=== PATIENT | female | born 1955 | race Caucasian/White ===

== ENCOUNTER 2016-03-02 10:25 | Observation (INO) | payer OTHER ==
[2016-03-02 10:54] VITALS: BMI 34.6
--- NOTE | 2016-03-02 11:03 | PDOC ---
History of Present Illness - General History Source: Patient Exam Limitations: No Limitations - History of Present Illness Initial Comments: 03/02/16 14:27 Patient is a 60 year old female with a significant PMHx of Arthritis, HTN, DM, HLD, CAD s/p AICD, Anxiety, Depression, CKD who presents to the ED severe left ventricular dysfunction, vtach asthma, chronic systolic CHF, bradycardia vs VT s /p PPM/AICD presents with chest pain today. 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 These symptoms were accompanied by dizziness, weakness, headache, and shortness of breath. The patient denies any loss of consciousness. She was noted to be pale and was given water and crackers. The ambulance was called and the patient was transported to the ED. Upon examination , the patient states that she no has chest pain, shortness of breath, weakness, or dizziness, but still has a headache. Patient reports that she took all her medications today and had breakfast. She states that she usually experiences chest pain when she is feeling anxious or depressed. Vegetable Cutter: Dr. Valenzuela PSHx: Appendectomy, Cholecystectomy, Hernia repair, PPM & AICD <Sis Bah - Last Filed: 03/02/16 14:24> - General History Source: Patient Exam Limitations: No Limitations <Julia Jones - Last Filed: 03/02/16 15:00> - General Chief Complaint: Shortness of Breath Stated Complaint: ANXIETY Time Seen by Provider: 03/02/16 10:32 Past History <Sis Bah - Last Filed: 03/02/16 14:24> - Past Medical History Anemia: Yes Asthma: Yes Cancer: No Cardiac Disorders: Yes CVA: No COPD: No CHF: No Dementia: No Diabetes: Yes Dialysis: No GI Disorders: Yes (GERD) Disorders: No HTN: Yes Hypercholesterolemia: Yes Liver Disease: No Psychiatric Problems: Yes (DEPRESSION, ANXIETY.) Seizures: No Thyroid Disease: Yes (HYPO) - Surgical History Abdominal Surgery: Yes (HERNIA REPAIR) Appendectomy: Yes Cardiac Surgery: Yes (PPM/AICD) Cholecystectomy: Yes Lung Surgery: No Neurologic Surgery: No Orthopedic Surgery: No - Immunization History Immunization Up to Date: Yes - Psycho/Social/Smoking Cessation Hx Anxiety: Yes Suicidal Ideation: No Smoking Status: No Smoking History: Never smoked Years of Tobacco Use: 0 Have you smoked in the past 12 months: No Number of Cigarettes Smoked Daily: 0 Hx Alcohol Use: No Drug/Substance Use Hx: No Substance Use Type: None Hx Substance Use Treatment: No <Julia Jones - Last Filed: 03/02/16 15:00> - Past Medical History Allergies/Adverse Reactions: Allergies Allergy/AdvReac Type Severity Reaction Status Date / Time No Known Allergies Allergy Verified 03/02/16 10:54 Home Medications: Ambulatory Orders Aspirin [ASA -] 81 mg PO DAILY 09/23/13 Acetaminophen [Pain Reliever] 1,000 mg PO PRN PRN 01/14/15 Albuterol Sulfate Inhaler - [Ventolin HFA Inhaler -] 1 - 2 inh PO Q4H 01/14/15 Furosemide [Lasix -] 20 mg PO DAILY 01/14/15 Isosorbide Mononitrate 30 mg PO DAILY 01/14/15 Levothyroxine [Synthroid -] 75 mcg PO DAILY 01/14/15 Lisinopril 10 mg PO DAILY 01/14/15 Meloxicam [Mobic (Nf) -] 15 mg PO DAILY PRN 01/14/15 Montelukast Na [Singulair -] 10 mg PO HS 01/14/15 Ranitidine HCl [Zantac] 150 mg PO BID 01/14/15 Simvastatin [Zocor -] 10 mg PO HS 01/14/15 Carvedilol [Coreg] 25 mg PO BID 04/27/15 Calcium 250Mg/Vit-D 125 Units [Oscal 250 mg+D -] 2 combo PO BID 07/13/15 Glipizide [Glucotrol -] 10 mg PO BID@0700,1630 07/13/15 Insulin Detemir [Levemir Flextouch] 18 unit SQ AM 07/13/15 Citalopram Hydrobromide [Celexa -] 40 mg PO DAILY 09/29/15 Insulin Detemir [Levemir Flextouch] 15 unit SQ ACDIN 10/22/15 Acetaminophen [Tylenol] 650 mg PO Q6H #30 tablet 01/14/16 Insulin Lispro [Humalog] 0 unit SQ TID 02/14/16 Review of Systems - Review of Systems Comments:: 03/02/16 14:27 GENERAL/CONSTITUTIONAL: No: fever, chills, loss of appetite. (+)weakness HEAD, EYES, EARS, NOSE AND THROAT: No: change in vision, ear pain, discharge, sore throat, throat swelling. CARDIOVASCULAR: No: lightheadedness, palpitations, syncope (+)chest pain RESPIRATORY: No: cough, wheezing, hemoptysis, stridor. (+)shortness of breath GASTROINTESTINAL: No: nausea, vomiting, abdominal cramping, diarrhea, rectal bleeding, constipation. GENITOURINARY: No: dysuria, hematuria, frequency, urgency, flank pain. MUSCULOSKELETAL: No: back pain, neck pain, joint pain, muscle swelling or pain SKIN AND BREASTS: No: lesions, pallor, rash or easy bruising. NEUROLOGIC: No: vertigo, paresthesias, weakness (+)Headache ENDOCRINE: No: unexplained weight gain or loss HEMATOLOGIC/LYMPHATIC: No: anemia, easy bleeding, swelling nodes PSYCH: (+)anxiety, depression <Sis Bah - Last Filed: 03/02/16 14:24> *Physical Exam - Vital Signs Last Vital Signs Temp Pulse Resp BP Pulse Ox 97.6 F 57 L 16 111/67 98 03/02/16 10:30 03/02/16 12:27 03/02/16 12:27 03/02/16 12:27 03/02/16 12:27 - Physical Exam Comments: 03/02/16 14:31 <Sis Bah - Last Filed: 03/02/16 14:24> - Vital Signs Last Vital Signs Temp Pulse Resp BP Pulse Ox 97.6 F 61 16 91/49 100 03/02/16 10:30 03/02/16 10:30 03/02/16 10:30 03/02/16 10:30 03/02/16 10:30 <Julia Jones - Last Filed: 03/02/16 15:00> Heart Score/ECG Review #1 ECG reviewed & interpreted by me at: 14:59 03/02/16 14:59 LBBB rate of 61 <Julia Jones - Last Filed: 03/02/16 15:00> ED Treatment Course - LABORATORY CBC & Chemistry Diagram: 03/02/16 11:10 03/02/16 11:10 - ADDITIONAL ORDERS Additional order review: Laboratory Results 03/02/16 03/02/16 03/02/16 11:19 11:10 11:10 INR PTT (Actin FS) Sodium 143 Potassium 5.1 Chloride 111 H Carbon Dioxide 26 Anion Gap 6 L BUN 34 H D Creatinine 1.8 H Creat Clearance w eGFR 28.80 Random Glucose 185 H D Lactic Acid 0.967 Calcium 8.4 L Total Bilirubin 0.3 D AST 23 D ALT 27 Alkaline Phosphatase 90 Creatine Kinase 169 D CK-MB (CK-2) 3.081 Troponin I < 0.02 Total Protein 6.9 Albumin 3.7 Total Amylase 51 Lipase 162 Urine Color Urine Appearance Urine pH Ur Specific [place] Urine Protein Urine Glucose (UA) Urine Ketones Urine Blood Urine Nitrite Urine Bilirubin Urine Urobilinogen Ur Leukocyte Esterase Urine RBC Urine WBC Ur Epithelial Cells Urine Mucus Blood Type Antibody Screen 03/02/16 03/02/16 03/02/16 11:10 11:00 10:32 INR 1.02 PTT (Actin FS) 32.9 Sodium Potassium Chloride Carbon Dioxide Anion Gap BUN Creatinine Creat Clearance w eGFR Random Glucose Lactic Acid Calcium Total Bilirubin AST ALT Alkaline Phosphatase Creatine Kinase CK-MB (CK-2) Troponin I Total Protein Albumin Total Amylase Lipase Urine Color Yellow Urine Appearance Slcloudy Urine pH 6.0 Ur Specific [place] 1.016 Urine Protein 2+ H Urine Glucose (UA) Negative Urine Ketones Negative Urine Blood Negative Urine Nitrite Negative Urine Bilirubin Negative Urine Urobilinogen Negative Ur Leukocyte Esterase Trace H Urine RBC None Urine WBC 6 Ur Epithelial Cells Rare Urine Mucus Rare Blood Type O POSITIVE Antibody Screen Negative 03/02/16 11:10 RBC 3.64 MCV 96.2 H MCHC 32.6 RDW 15.1 MPV 8.3 Neutrophils % 70.2 D Lymphocytes % 14.9 D Monocytes % 12.6 H Eosinophils % 1.9 Basophils % 0.4 <Sis aBh - Last Filed: 03/02/16 14:24> - LABORATORY CBC & Chemistry Diagram: 03/02/16 11:10 03/02/16 11:10 - RADIOLOGY Radiology Studies Ordered: Category Date Time Status CHEST X-RAY PORTABLE* [RAD] Stat Radiology 03/02/16 10:49 Ordered <Julia Jones - Last Filed: 03/02/16 15:00> Medical Decision Making - Medical Decision Making 03/02/16 11:03 A portion of this note was documented by scribe services under my direction. I have reviewed the details of the note, within reason, and agree with the documentation with the following case summary and management plan written by me. Nursing documentation reviewed and incorporated into medical decision making 03/02/16 13:17 This is a 60 yo F with a history of Anemia, Asthma, NICM, IDDM, GERD, HTN, HLD, hypothyroidism who presents to the ER with a complaint of left sided chest pain which is present when she has "anxiety". Pt states that when she was in the social security office today, she felt dizzy and weak and developed chest pain No shortness of breath No cough No fever No recent travel No Ill contacts On examination Left upper arm swollen (pt states when she moves this arm, she has pain, she did fall 1 month ago) RRR Lungs clear No lower extremity edema Will do labs Will do CXR will eval LUE with duplex and x ray Will contact Dr Valenzuela Will contact [facility] 03/02/16 13:25 Laboratory Tests 03/02/16 03/02/16 03/02/16 11:00 11:10 11:10 WBC 5.3 Hgb 11.4 Hct 35.0 Plt Count 200 Neutrophils % 70.2 D Lymphocytes % 14.9 D BUN 34 H D Creatinine 1.8 H Creatine Kinase 169 D CK-MB (CK-2) 3.081 Troponin I < 0.02 Urine Ketones Negative Urine Blood Negative Ur Leukocyte Esterase Trace H Urine RBC None Urine WBC 6 03/02/16 13:26 Case reviewed with CLOCK MECHANIC Cora Will place on observation on Tele <Julia Jones - Last Filed: 03/02/16 15:00> *DC/Admit/Observation/Transfer <Sis Bah - Last Filed: 03/02/16 14:24> - Discharge Dispostion Admit: Yes <Julia Jones - Last Filed: 03/02/16 15:00> Diagnosis at time of Disposition: Chest pain Qualifiers: Chest pain type: unspecified Qualified Code(s): R07.9 - Chest pain, unspecified - Discharge Dispostion Condition at time of disposition: Stable - Referrals
[2016-03-02 11:31] LABS: BASOPHIL 0.4 % (0-2.0); EOSINOPHIL 1.9 % (0-4.5); MCH 31.3 pg (25.7-33.7); MCHC 32.6 g/dl (32.0-36.0); MEAN CELL VOLUME 96.2 fl (80-96); MEAN PLT VOLUME 8.3 fl (7.5-11.1); NEUTROPHILS 70.2 % (42.8-82.8); PLATELET COUNT 200 K/MM3 (134-434); RDW 15.1 % (11.6-15.6); WHITE BLOOD COUNT 5.3 K/mm3 (4.0-10.0)
[2016-03-02 11:32] LABS: URINE APPEARANCE SLCLOUDY; URINE BILIRUBIN NEGATIVE (NEGATIVE); URINE BLOOD NEGATIVE (NEGATIVE); URINE COLOR YELLOW; URINE GLUCOSE (UA) NEGATIVE (NEGATIVE); URINE KETONE NEGATIVE (NEGATIVE); URINE NITRITE NEGATIVE (NEGATIVE); URINE UROBILINOGEN NEGATIVE E.U./dl (0.2-1.0)
[2016-03-02 11:45] LABS: AMYLASE 51 U/L (25-115)
[2016-03-02 11:50] LABS: URINE LEUK ESTERASE TRACE (NEGATIVE); URINE PROTEIN 2+ (NEGATIVE)
[2016-03-02 11:50] LABS: ALBUMIN 3.7 g/dl (3.4-5.0); ANION GAP 6 (8-16); BILIRUBIN,TOTAL 0.3 mg/dL (0.2-1.0); CALCIUM 8.4 mg/dL (8.5-10.1); CO2 26 mmol/L (21-32); CREATININE 1.8 mg/dL (0.55-1.02); GLUCOSE,RANDOM 185 mg/dL (74-106); SGPT/ALT 27 U/L (12-78); TOT PROT 6.9 g/dl (6.4-8.2)
[2016-03-02 11:51] LABS: URINE MUCUS RARE; URINE WBC 6 /hpf (3-5)
[2016-03-02 11:53] LABS: ALK PHOS 90 U/L (45-117); TROPONIN I < 0.02 ng/ml (0.00-0.05)
[2016-03-02 11:55] LABS: SGOT/AST 23 U/L (15-37)
[2016-03-02 12:10] LABS: INR 1.02 (0.82-1.09); PROTHROMBIN TIME (PATIENT) 11.2 SEC (9.98-11.88)
[2016-03-02 12:13] LABS: ACTIVATED PTT 32.9 SECONDS (26.9-34.4)
--- NOTE | 2016-03-02 13:31 | HP ---
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 She was in a social security office earlier today, when she became depressed, anxious, diaphoretic, dizzy and pale. She also complained of h/a. She has had these symptoms before during panic attacks. She initially reported chest pain but later denied it. She denies any shocks from ICD that she could feel. She reports pain In L shoulder ever since she fell on it 1 mo ago. She states that recently her beta renu dose was increased. She was in this ED 1 mo ago due to anxiety associated symptoms. Her last TTE was 11/12/14 and showed moderately reduced EF, mod MR and mild/mod TR. She denies LOC, sob, cough, palpitations, n/v, and pain , diarrhea, constipation, dysuria, frequency or urgency. ER course was notable for: (1)labs (2)cxr, LUE US and XR (3)EKG Recent Travel: denies PAST MEDICAL HISTORY: as above PAST SURGICAL HISTORY: ICD, appendectomy, cholecystectomy, hernia, glaucoma, tubal ligation. Social History: lives at home Smoking: denies Alcohol:denies Drugs: denies Family History: Mother CAD Allergies No Known Allergies Allergy (Verified 03/02/16 10:54) HOME MEDICATIONS: Medication Instructions Recorded Aspirin [ASA -] 81 mg PO DAILY 09/23/13 Acetaminophen [Pain Reliever] 1,000 mg PO PRN PRN 01/14/15 Albuterol Sulfate Inhaler - 1 - 2 inh PO Q4H 01/14/15 [Ventolin HFA Inhaler -] Furosemide [Lasix -] 20 mg PO DAILY 01/14/15 Isosorbide Mononitrate 30 mg PO DAILY 01/14/15 Levothyroxine [Synthroid -] 75 mcg PO DAILY 01/14/15 Lisinopril 10 mg PO DAILY 01/14/15 Meloxicam [Mobic (Nf) -] 15 mg PO DAILY PRN 01/14/15 Montelukast Na [Singulair -] 10 mg PO HS 01/14/15 Ranitidine HCl [Zantac] 150 mg PO BID 01/14/15 Simvastatin [Zocor -] 10 mg PO HS 01/14/15 Carvedilol [Coreg] 12.5 mg PO BID 04/27/15 Calcium 250Mg/Vit-D 125 Units 2 combo PO BID 07/13/15 [Oscal 250 mg+D -] Glipizide [Glucotrol -] 10 mg PO BID@0700,1630 07/13/15 Insulin Detemir [Levemir Flextouch] 18 unit SQ AM 07/13/15 Albuterol Sulfate Inhaler - 2 inh IH Q6H #1 inh 09/29/15 [Ventolin HFA Inhaler -] Citalopram Hydrobromide [Celexa -] 40 mg PO DAILY 09/29/15 Insulin Detemir [Levemir Flextouch] 15 unit SQ ACDIN 10/22/15 Acetaminophen [Tylenol] 650 mg PO Q6H #30 tablet 01/14/16 Insulin Lispro [Humalog] 0 unit SQ TID 02/14/16 REVIEW OF SYSTEMS CONSTITUTIONAL: Absent: fever, chills, malaise, loss of appetite, weight change HEENT: Absent: rhinorrhea, nasal congestion, throat pain CARDIOVASCULAR: Absent: chest pain, syncope, palpitations, irregular heart rate, peripheral edema RESPIRATORY: Absent: cough, shortness of breath, dyspnea with exertion, orthopnea, wheezing GASTROINTESTINAL: Absent: abdominal pain, abdominal distension, nausea, vomiting, diarrhea, constipation GENITOURINARY: Absent: dysuria, frequency, urgency, hematuria MUSCULOSKELETAL: Absent: back pain, neck pain SKIN: Absent: rash, itching, pallor HEMATOLOGIC/IMMUNOLOGIC: Absent: easy bleeding, easy bruising, frequent infections ENDOCRINE: Absent: heat intolerance, cold intolerance NEUROLOGIC: Absent: focal weakness or paresthesias, seizure, mental status changes PSYCHIATRIC: Absent: suicidal or homicidal ideation, hallucinations. PHYSICAL EXAMINATION Vital Signs - 24 hr 03/02/16 03/02/16 03/02/16 10:30 11:34 12:27 Temperature 97.6 F Pulse Rate 61 Pulse Rate [ 60 57 L Left Radial] Respiratory 16 16 16 Rate Blood Pressure 91/49 Blood Pressure 90/46 111/67 [Right Arm] O2 Sat by Pulse 100 100 98 Oximetry (%) GENERAL: Awake, alert, and fully oriented, in no acute distress. HEAD: Normal with no signs of trauma. EYES: Pupils equal, round and reactive to light, extraocular movements intact, sclera anicteric, conjunctiva clear. EARS, NOSE, THROAT: Moist mucous membranes. NECK: supple without lymphadenopathy, JVD, or masses. LUNGS: Breath sounds equal, clear to auscultation bilaterally. HEART: Regular rate and rhythm, normal S1 and S2 ABDOMEN: Soft, nontender, not distended, normoactive bowel sounds MUSCULOSKELETAL: L shoulder pain, ROM mildly limited by pain. No CVA tenderness. UPPER EXTREMITIES: 2+ pulses, warm, well-perfused. No cyanosis. No peripheral edema. LOWER EXTREMITIES: 2+ pulses, warm, well-perfused. No calf tenderness. No peripheral edema. NEUROLOGICAL: Cranial nerves II-XII grossly intact. Normal speech. PSYCHIATRIC: Cooperative. Good eye contact. Appropriate mood and affect. SKIN: Warm, dry Laboratory Results - last 24 hr 03/02/16 03/02/16 03/02/16 10:32 11:00 11:10 WBC 5.3 RBC 3.64 Hgb 11.4 Hct 35.0 MCV 96.2 H MCHC 32.6 RDW 15.1 Plt Count 200 MPV 8.3 Neutrophils % 70.2 D Lymphocytes % 14.9 D Monocytes % 12.6 H Eosinophils % 1.9 Basophils % 0.4 INR PTT (Actin FS) Sodium Potassium Chloride Carbon Dioxide Anion Gap BUN Creatinine Creat Clearance w eGFR Random Glucose Lactic Acid Calcium Total Bilirubin AST ALT Alkaline Phosphatase Creatine Kinase CK-MB (CK-2) Troponin I Total Protein Albumin Total Amylase Lipase Urine Color Yellow Urine Appearance Slcloudy Urine pH 6.0 Ur Specific [place] 1.016 Urine Protein 2+ H Urine Glucose (UA) Negative Urine Ketones Negative Urine Blood Negative Urine Nitrite Negative Urine Bilirubin Negative Urine Urobilinogen Negative Ur Leukocyte Esterase Trace H Urine RBC None Urine WBC 6 Ur Epithelial Cells Rare Urine Mucus Rare Blood Type O POSITIVE Antibody Screen Negative 03/02/16 03/02/16 03/02/16 11:10 11:10 11:10 WBC RBC Hgb Hct MCV MCHC RDW Plt Count MPV Neutrophils % Lymphocytes % Monocytes % Eosinophils % Basophils % INR 1.02 PTT (Actin FS) 32.9 Sodium 143 Potassium 5.1 Chloride 111 H Carbon Dioxide 26 Anion Gap 6 L BUN 34 H D Creatinine 1.8 H Creat Clearance w eGFR 28.80 Random Glucose 185 H D Lactic Acid Calcium 8.4 L Total Bilirubin 0.3 D AST 23 D ALT 27 Alkaline Phosphatase 90 Creatine Kinase 169 D CK-MB (CK-2) 3.081 Troponin I < 0.02 Total Protein 6.9 Albumin 3.7 Total Amylase 51 Lipase 162 Urine Color Urine Appearance Urine pH Ur Specific [place] Urine Protein Urine Glucose (UA) Urine Ketones Urine Blood Urine Nitrite Urine Bilirubin Urine Urobilinogen Ur Leukocyte Esterase Urine RBC Urine WBC Ur Epithelial Cells Urine Mucus Blood Type Antibody Screen 03/02/16 11:19 WBC RBC Hgb Hct MCV MCHC RDW Plt Count MPV Neutrophils % Lymphocytes % Monocytes % Eosinophils % Basophils % INR PTT (Actin FS) Sodium Potassium Chloride Carbon Dioxide Anion Gap BUN Creatinine Creat Clearance w eGFR Random Glucose Lactic Acid 0.967 Calcium Total Bilirubin AST ALT Alkaline Phosphatase Creatine Kinase CK-MB (CK-2) Troponin I Total Protein Albumin Total Amylase Lipase Urine Color Urine Appearance Urine pH Ur Specific [place] Urine Protein Urine Glucose (UA) Urine Ketones Urine Blood Urine Nitrite Urine Bilirubin Urine Urobilinogen Ur Leukocyte Esterase Urine RBC Urine WBC Ur Epithelial Cells Urine Mucus Blood Type Antibody Screen ASSESSMENT/PLAN: This is a 59 yo F with PMH of anxiety, HTN, HLD, IDDM, NICM (cardiac cath 2010 [facility] with no significant CAD), Severe LV systolic dysfunction with history of VT and syncope, s/p single chamber ICD, 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 Denies chest pain. Recent increase in Beta renu. TTE 11/12/14 and showed moderately reduced EF, mod MR and mild/mod TR. She denies LOC, palpitations, n/v, and pain, diarrhea, constipation, dysuria, frequency or urgency. BP 90/46 on admission, below baseline of 130 systolic. Lightheadedness in setting of multiple cardiac comorbidities adn recent BP med dose increase (1w ago) -associated with hypotension -likely due to BP medication increase -telemetry monitoring -trop negative x1; trend -ICD interrogation -TTE -hold BP meds -asa 81 d Acute on chronic kidney injury -creat 1.8 above baseline -likely due to relative hypotension/dehydration -1L NS @75 HTN -hypotensive, hold meds L shoulder pain -f/u US and X ray Possible UTI -positive trace leuk est on UA -asymptomatic -f/u cultures -no abx indicated at this time HLD -atorvastatin 10 d IDDM -fingerstick TID AC -sliding scale -Levemir 18 u HS -Novolog 6 u TIDAC OA -tylenol PRN hypothyroidism -Synthroid 75 d Deoressuib -citalopram GERD -ranitidine Asthma -singulair -albuterol nebs FEN IVF NS @75 x 1L lytes stable DVT GI PPX: SCD's, ranitidine, diet diabetic/Na restriced diet Dispo: obs in tele Problem List - Problem (1) Depression Code(s): F32.9 - MAJOR DEPRESSIVE DISORDER, SINGLE EPISODE, UNSPECIFIED (2) Diabetic neuropathy Code(s): E11.40 - TYPE 2 DIABETES MELLITUS WITH DIABETIC NEUROPATHY, UNSP (3) Asthma Code(s): J45.909 - UNSPECIFIED ASTHMA, UNCOMPLICATED Qualifiers: Asthma severity: mild intermittent Asthma complication type: uncomplicated Qualified Code(s): J45.20 - Mild intermittent asthma, uncomplicated (4) CKD (chronic kidney disease) Code(s): N18.9 - CHRONIC KIDNEY DISEASE, UNSPECIFIED (5) COPD (chronic obstructive pulmonary disease) Code(s): J44.9 - CHRONIC OBSTRUCTIVE PULMONARY DISEASE, UNSPECIFIED Qualifiers : COPD type: unspecified COPD Qualified Code(s): J44.9 - Chronic obstructive pulmonary disease, unspecified (6) Diabetes type 2, controlled Code(s): E11.9 - TYPE 2 DIABETES MELLITUS WITHOUT COMPLICATIONS Qualifiers: Diabetes mellitus complication status: with unspecified complications Diabetes mellitus long-term insulin use: unspecified termite helper insulin use status Qualified Code(s): E11.8 - Type 2 diabetes mellitus with unspecified complications; Z79.4 - termination clerk (current) use of insulin (7) HTN (hypertension) Code(s): I10 - ESSENTIAL (PRIMARY) HYPERTENSION Qualifiers: Hypertension type: essential hypertension Qualified Code(s): I10 - Essential (primary) hypertension (8) Osteoarthritis Code(s): M19.90 - UNSPECIFIED OSTEOARTHRITIS, UNSPECIFIED SITE (9) Renal failure (ARF), acute on chronic Code(s): N17.9 - ACUTE KIDNEY FAILURE, UNSPECIFIED N18.9 - CHRONIC KIDNEY DISEASE, UNSPECIFIED (10) AICD (automatic cardioverter/defibrillator) present Code(s): Z95.810 - PRESENCE OF AUTOMATIC (IMPLANTABLE) CARDIAC DEFIBRILLATOR (11) Chronic systolic heart failure Code(s): I50.22 - CHRONIC SYSTOLIC (CONGESTIVE) HEART FAILURE (12) Depression with anxiety Code(s): F41.8 - OTHER SPECIFIED ANXIETY DISORDERS (13) History of ventricular tachycardia Code(s): Z86.79 - PERSONAL HISTORY OF OTHER DISEASES OF THE CIRCULATORY SYSTEM (14) Hyperlipidemia Code(s): E78.5 - HYPERLIPIDEMIA, UNSPECIFIED Qualifiers: Hyperlipidemia type: unspecified hyperlipidemia (15) Hypothyroidism Code(s): E03.9 - HYPOTHYROIDISM, UNSPECIFIED Qualifiers: Hypothyroidism type: unspecified Qualified Code(s): E03.9 - Hypothyroidism, unspecified (16) Non-ischemic cardiomyopathy Code(s): I42.9 - CARDIOMYOPATHY, UNSPECIFIED (17) Hypotension Code(s): I95.9 - HYPOTENSION, UNSPECIFIED (18) Lightheaded Code(s): R42 - DIZZINESS AND GIDDINESS Visit type - Emergency Visit Emergency Visit: Yes ED Registration Date: 03/02/16 Care time: The patient presented to the Emergency Department on the above date and was hospitalized for further evaluation of their emergent condition. - New Patient This patient is new to me today: Yes Date on this admission: 03/02/16 - Critical Care Critical Care patient: No
--- NOTE | 2016-03-02 13:44 | PN ---
Progress Note (short form) - Note Progress Note: Cardiology Consult Dictated 60F w/ NICM, h/o VT s/p ICD, HTN, h/o endocarditis with 6 weeks of IV abx treatment presents to ER today with episode of light headedness. Found to be relatively hypotensive on initial presentation, now improved. Possible medication induced hypotension, symptomatic. REC: Tele ICD interrogation Hold BP meds for now and observe, will likely need adjustment of home BP regimen. Echo.
--- NOTE | 2016-03-02 14:18 | CONS ---
DATE OF CONSULTATION: REQUESTING PHYSICIAN: Julia Jones MD REASON FOR CONSULTATION: Hypotension, lightheadedness. 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 The patient began to feel anxious and lightheaded. She denied chest pain or shortness of breath. Denied palpitations or ICD discharges. Upon presentation to the ER, she was noted to be hypotensive with a systolic pressure of 90 and diastolic pressure of 46. After a period of observation, her blood pressure improved, and she is now asymptomatic. She is afebrile. She has chronic dyspnea on exertion, unchanged recently. No lower extremity edema. No PND. No orthopnea. Denies recent syncope. Denies recent seizures. Lula Sci ICD interrogated in ER, normal device function with no events. PAST MEDICAL HISTORY: As outlined above. ALLERGIES: None. MEDICATIONS: Zocor 10 nightly, Zantac 150 b.i.d., Singulair 10 nightly, lisinopril, Synthroid 75 mcg daily, Imdur 30 mg daily, Lasix 20 mg daily, carvedilol 12.5 b.i.d., aspirin 81 daily. This is a list of medications from her previous hospitalization. Most recent outpatient medications need to be reviewed and reconciled. She did not have a list with her today. FAMILY HISTORY: Noncontributory. SOCIAL HISTORY: Nonsmoker. No alcohol. No illicit drugs. PHYSICAL EXAMINATION: Vital Signs: Temperature 97.6, pulse 57, regular, blood pressure now 111/67, O2 saturation 98 on room air. HEENT: She is anicteric. Neck: No JVD. No bruits. Heart: S1, S2 regular. No murmurs. Chest: Clear. Abdomen: Obese, soft, nontender. Extremities: The left upper extremity was markedly more swollen than the right upper extremity. Her EKG showed normal saline with left bundle branch block. Chest x-ray: No evidence of active cardiopulmonary disease. LABORATORIES: White count 5.3, hematocrit 35, platelets 200, INR 1. Sodium 143 , potassium 5.1, BUN 34, creatinine 1.8. Remainder of the LFTs, CK, and troponin are negative. IMPRESSION: 1. Nonischemic cardiomyopathy status post implantable cardioverter- defibrillator. 2. History of pseudoseizures. 3. Lightheadedness in the setting of hypotension, possibly medication induced. 4. LUE edema PLAN: 1. Admit to telemetry for observation. 2. Check orthostatics. 3. Reconcile home blood pressure medications and hold antihypertensives until blood pressure stabilizes then begin to reintroduce agents based on history of cardiomyopathy and hypertension as blood pressure allows. 4. ICD interrogation done in ER, no events with normal device function. 5. Echocardiogram. 6. Plan for left upper extremity venous duplex as it is markedly more swollen than the right to rule out DVT. 7. Cultures have been sent, although the patient is afebrile. Fever workup to be completed. Thank you for the consultation. POOL SINGER M.D. [id number] MTDD
[2016-03-02] MEDS ORDERED: SODIUM CHLORIDE 1,000 ML IV STA ×2 (14:32→18:17)
[2016-03-02] MEDS ORDERED: ACETAMINOPHEN 500 MG TABLET (FP) PO PRN (15:15)
[2016-03-02] MEDS ORDERED: ACETAMINOPHEN 325 MG TABLET (FP) PO PRN (15:15)
[2016-03-02] MEDS ORDERED: ALBUTEROL SO4 6.7 GM HFA INHALER IH PRN (15:15)
[2016-03-02] MEDS ORDERED: PATIENT'S OWN MEDICATION (NON-FORMULARY) (Meloxicam 15 MG) PO PRN (15:15)
--- NOTE | 2016-03-02 17:40 | PN ---
Teaching Attending Note Name of Resident: Nayana Cannon ATTENDING PHYSICIAN STATEMENT I saw and evaluated the patient. I reviewed the resident's note and discussed the case with the resident. I agree with the resident's findings and plan as documented. SUBJECTIVE:c/o "panic attack" earlier today assoc with FERN[facility]NDEZ. states she is compliant with her medications, she took them today and no recent changes. while talking she stated she felt slightly short of breath assoc with dizzyness and requested oxygen. sat 99% on RA. FS checked and noted to be 51. she states she has eaten since early this morning. denies CP, fever, chills, N/V/C/D, firing of AICD OBJECTIVE: Last Vital Signs Temp Pulse Resp BP Pulse Ox 98.3 F 63 14 99/48 100 03/02/16 16:14 03/02/16 16:14 03/02/16 16:14 03/02/16 16:14 03/02/16 16:14 General NAD CV S1 S2 bradycardic no chest wall tenderness Lungs CTA B/L no wheezing/rales/rhonchi ASSESSMENT AND PLAN: 60yo F with significant PMH including AICD for VT presented to the ER and was admitted for further evaluation of their emergent condition 1. Lightheadedness- tele observation for continuous cardiac monitoring. possible due to hypotension. HP here in the 90's. baseline is higher. recently coreg was increased. will hold all BP meds at this time and re-evaluate. cont to monitor BP closely. check Echo, PPM interrogation to r/o arrhythmia. cardiac markers Q6H x2. cardio consulted. 2. Hypoglycemia- liekly due to not eating since this morning. juice and cookies given. will repeat sugars. will half tonights insulin dose. 2. L shoulder pain- duplex and XR negative for dvt, dislocation or fracture. pain control 3. Acute on CKD- possible due to hypoperfusion vs dehydration. will give gentle IVF. avoid nephrotoxic agents 4. DVT ppx- eam
[2016-03-02] MEDS: INSULIN (NOVOLOG) ASPART 100 UNITS/ML 10ML VIAL SQ SCH (18:04)
[2016-03-02] MEDS: INSULIN SLIDING SCALE (NOVOLOG) 1 VIAL SQ SCH (18:04)
[2016-03-02] MEDS: RANITIDINE HCL 150 MG TABLET (FP) PO SCH (21:39)
[2016-03-02] MEDS: CALCIUM 250MG/VIT-D 125 UNITS 1 COMBO TABLET PO SCH (21:39)
[2016-03-02] MEDS ORDERED: MONTELUKAST NA 10 MG TABLET PO SCH (22:00)
[2016-03-02] MEDS ORDERED: INSULIN DETEMIR 100 UNITS/ML MDV SQ SCH ×2 (22:00)
[2016-03-02] MEDS ORDERED: ATORVASTATIN CA 10 MG TABLET (FP) PO SCH (22:00)
[2016-03-03] MEDS: INSULIN (NOVOLOG) ASPART 100 UNITS/ML 10ML VIAL SQ SCH ×2 (06:34→11:42)
[2016-03-03] MEDS: INSULIN SLIDING SCALE (NOVOLOG) 1 VIAL SQ SCH ×2 (06:34→11:41)
[2016-03-03] MEDS ORDERED: LEVOTHYROXINE NA 75 MCG TABLET (FP) PO SCH (07:00)
[2016-03-03] MEDS: CALCIUM 250MG/VIT-D 125 UNITS 1 COMBO TABLET PO SCH (09:20)
[2016-03-03] MEDS: RANITIDINE HCL 150 MG TABLET (FP) PO SCH (09:20)
[2016-03-03] MEDS ORDERED: ASPIRIN 81 MG CHEWABLE TABLETS PO SCH (10:00)
[2016-03-03] MEDS ORDERED: CITALOPRAM HYDROBROMIDE 20 MG TABLET (FP) PO SCH (10:00)
[2016-03-03 11:01] VITALS: BP 135/70; PULSE 70; TEMP 98
--- NOTE | 2016-03-03 12:20 | PN ---
[id number] Illness: Patient is a 60 year old female with a significant PMHx of Arthritis, HTN, DM, HLD, CAD s/p AICD, Anxiety, Depression, CKD who presents to the ED severe left ventricular dysfunction, vtach asthma, chronic systolic CHF, bradycardia vs VT s /p PPM/AICD presents with chest pain today. 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 These symptoms were accompanied by dizziness, weakness, headache, and shortness of breath. The patient denies any loss of consciousness. She was noted to be pale and was given water and crackers. The ambulance was called and the patient was transported to the ED. Upon examination , the patient states that she no has chest pain, shortness of breath, weakness, or dizziness, but still has a headache. Patient reports that she took all her medications today and had breakfast. She states that she usually experiences chest pain when she is feeling anxious or depressed. Commissions Manager: Dr. Valenzuela - Current Medication List Current Medications: Active Medications Acetaminophen (Tylenol -) 650 mg PO Q4H PRN Last Admin: 03/03/16 11:38 Dose: 650 mg Albuterol Sulfate (Ventolin Hfa Inhaler -) 2 puff IH Q4H PRN Aspirin (Asa -) 81 mg PO DAILY [facility] Last Admin: 03/03/16 09:20 Dose: 81 mg Atorvastatin Calcium (Lipitor -) 10 mg PO HS [facility] Last Admin: 03/02/16 21:39 Dose: 10 mg Calcium/Vitamin D (Oscal 250 Mg+D -) 2 tab PO BID [facility] Last Admin: 03/03/16 09:20 Dose: 2 tab Citalopram Hydrobromide (Celexa -) 40 mg PO DAILY [facility] Last Admin: 03/03/16 09:20 Dose: 40 mg Insulin Aspart (Novolog Vial Sliding Scale -) 1 vial SQ TIDAC [facility] PRN Reason: Protocol Last Admin: 03/03/16 11:41 Dose: Not Given Insulin Aspart (Novolog Vial) 6 units SQ TIDAC [facility] PRN Reason: Protocol Last Admin: 03/03/16 11:42 Dose: Not Given Insulin Detemir (Levemir Vial) 9 units SQ [facility] Last Admin: 03/02/16 21:38 Dose: 9 units Levothyroxine Sodium (Synthroid -) 75 mcg PO DAILY@0700 [facility] Last Admin: 03/03/16 06:35 Dose: 75 mcg Montelukast Sodium (Singulair -) 10 mg PO HS [facility] Last Admin: 03/02/16 21:39 Dose: 10 mg Ranitidine HCl (Zantac -) 150 mg PO BID [facility] Last Admin: 03/03/16 09:20 Dose: 150 mg - Objective Vital Signs: Vital Signs Temperature 98 F 03/03/16 10:00 Pulse Rate 70 03/03/16 10:00 Respiratory Rate 18 03/03/16 10:00 Blood Pressure 135/70 03/03/16 10:00 O2 Sat by Pulse Oximetry (%) 97 03/03/16 09:00 Constitutional: Yes: Anxious Eyes: Yes: WNL HENT: Yes: WNL Neck: Yes: WNL Cardiovascular: Yes: S1, S2 (split) Respiratory: Yes: WNL Gastrointestinal: Yes: Soft ...Rectal Exam: Yes: Deferred Genitourinary: No: Anuria Breast(s): Yes: WNL Musculoskeletal: Yes: Muscle Weakness Extremities: Yes: Cool Edema: No Peripheral Pulses WNL: Yes Integumentary: Yes: WNL Neurological: Yes: Alert Psychiatric: Yes: Other (depression) Labs: CBC, BMP 03/03/16 05:35 INR, PTT INR 1.02 (0.82-1.09) 03/02/16 11:10 Problem List - Problems (1) Depression Code(s): F32.9 - MAJOR DEPRESSIVE DISORDER, SINGLE EPISODE, UNSPECIFIED (2) Diabetic neuropathy Code(s): E11.40 - TYPE 2 DIABETES MELLITUS WITH DIABETIC NEUROPATHY, UNSP (3) Lightheaded Code(s): R42 - DIZZINESS AND GIDDINESS (4) Asthma Code(s): J45.909 - UNSPECIFIED ASTHMA, UNCOMPLICATED Qualifiers: Asthma severity: mild intermittent Asthma complication type: uncomplicated Qualified Code(s): J45.20 - Mild intermittent asthma, uncomplicated (5) CKD (chronic kidney disease) Code(s): N18.9 - CHRONIC KIDNEY DISEASE, UNSPECIFIED (6) COPD (chronic obstructive pulmonary disease) Code(s): J44.9 - CHRONIC OBSTRUCTIVE PULMONARY DISEASE, UNSPECIFIED Qualifiers : COPD type: unspecified COPD Qualified Code(s): J44.9 - Chronic obstructive pulmonary disease, unspecified (7) Chronic back pain Code(s): M54.9 - DORSALGIA, UNSPECIFIED G89.29 - OTHER CHRONIC PAIN (8) Diabetes type 2, controlled Code(s): E11.9 - TYPE 2 DIABETES MELLITUS WITHOUT COMPLICATIONS Qualifiers: Diabetes mellitus complication status: with unspecified complications Diabetes mellitus jail insulin use: unspecified director long term care insulin use status Qualified Code(s): E11.8 - Type 2 diabetes mellitus with unspecified complications; Z79.4 - director long term care (current) use of insulin (9) HTN (hypertension) Code(s): I10 - ESSENTIAL (PRIMARY) HYPERTENSION Qualifiers: Hypertension type: essential hypertension Qualified Code(s): I10 - Essential (primary) hypertension (10) Chronic systolic heart failure Assessment/Plan: ICD interrogation: no NSVT since 12/2015. Severely reduced LVEF. Restart carvedilol 25 mg bid, Imdur 30 mg daily. On lisinopril 20 mg daily at home; will restart at 5 mg/d (initially hyperkalemic and renal insufficient: f/u BUN/Cr and electrolytes). On furosemide 20 mg daily at home. Code(s): I50.22 - CHRONIC SYSTOLIC (CONGESTIVE) HEART FAILURE (11) History of ventricular tachycardia Code(s): Z86.79 - PERSONAL HISTORY OF OTHER DISEASES OF THE CIRCULATORY SYSTEM (12) Hyperlipidemia Code(s): E78.5 - HYPERLIPIDEMIA, UNSPECIFIED Qualifiers: Hyperlipidemia type: unspecified hyperlipidemia (13) Hypothyroidism Code(s): E03.9 - HYPOTHYROIDISM, UNSPECIFIED Qualifiers: Hypothyroidism type: unspecified Qualified Code(s): E03.9 - Hypothyroidism, unspecified (14) Non-ischemic cardiomyopathy Code(s): I42.9 - CARDIOMYOPATHY, UNSPECIFIED
[2016-03-03] MEDS ORDERED: CARVEDILOL 25 MG TABLET (FP) PO SCH (12:45)
[2016-03-03 12:50] LABS: CALCIUM 8.6 mg/dL (8.5-10.1); CREATININE 1.4 mg/dL (0.55-1.02); MAGNESIUM 2.2 mg/dL (1.8-2.4); PHOSPHOROUS 3.8 mg/dL (2.5-4.9)
[2016-03-03] MEDS ORDERED: LISINOPRIL 5 MG TABLET (FP) PO SCH (13:00)
[2016-03-03] MEDS ORDERED: ISOSORBIDE MONONITRATE 30 MG TAB.SR.24H (FP) PO SCH (13:00)
[2016-03-03] MEDS ORDERED: LISINOPRIL 20 MG TABLET (FP) PO SCH (13:00)
--- NOTE | 2016-03-03 13:27 | DS ---
Physical Exam: SUBJECTIVE: Patient seen and examined. no repeated episodes of dizzyness or CP, denies CP, SOB,fever, chills, palpitaitons OBJECTIVE: Vital Signs Period Temp Pulse Resp BP Sys/Ayers Pulse Ox Last 24 Hr 97.8 F-98.4 F 55-70 14-18 99-137/44-80 96-100 PHYSICAL EXAM GENERAL: The patient is awake, alert, and fully oriented, in no acute distress. HEAD: Normal with no signs of trauma. EYES: PERRL, extraocular movements intact, sclera anicteric, conjunctiva clear. ENT: Ears normal, nares patent, oropharynx clear without exudates, moist mucous membranes. NECK: Trachea midline, full range of motion, supple. LUNGS: Breath sounds equal, clear to auscultation bilaterally, no wheezes, no crackles, no accessory muscle use. HEART: Regular rate and rhythm, S1, S2 without murmur, rub or gallop. ABDOMEN: Soft, nontender, nondistended, normoactive bowel sounds, no guarding, no rebound, no hepatosplenomegaly, no masses. EXTREMITIES: 2+ pulses, warm, well-perfused, no edema. NEUROLOGICAL: Cranial nerves II through XII grossly intact. Normal speech, gait not observed. PSYCH: Normal mood, normal affect. SKIN: Warm, dry, normal turgor, no rashes or lesions noted. LABS Laboratory Results - last 24 hr 03/02/16 03/02/16 03/02/16 15:45 17:44 18:43 Sodium Potassium Chloride Carbon Dioxide Anion Gap BUN Creatinine POC Glucometer 51 181 Random Glucose Calcium Phosphorus Magnesium Troponin I < 0.02 03/02/16 03/02/16 03/03/16 21:36 22:55 05:35 Sodium 138 Potassium 4.8 Chloride 111 H Carbon Dioxide 22 Anion Gap 5 L BUN 26 H D Creatinine 1.4 H D POC Glucometer 173 119 Random Glucose 87 D Calcium 8.6 Phosphorus 3.8 Magnesium 2.2 Troponin I 03/03/16 03/03/16 06:28 11:40 Sodium Potassium Chloride Carbon Dioxide Anion Gap BUN Creatinine POC Glucometer 85 123 Random Glucose Calcium Phosphorus Magnesium Troponin I HOSPITAL COURSE: Date of Admission:03/02/16 Date of Discharge: 03/03/16 ADmitting diagnosis: Symptomatic Hypotension Pre hospital course 59 yo F with PMH of anxiety, HTN, HLD, IDDM, NICM (cardiac cath 2010 [facility] with no significant CAD), Severe LV systolic dysfunction with history of VT and syncope, s/p single chamber ICD, 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 She was in a social security office earlier today, when she became depressed, anxious, diaphoretic, dizzy and pale. She also complained of h/a. She has had these symptoms before during panic attacks. She initially reported chest pain but later denied it. She denies any shocks from ICD that she could feel. She reports pain In L shoulder ever since she fell on it 1 mo ago. She states that recently her beta renu dose was increased. She was in this ED 1 mo ago due to anxiety associated symptoms. Her last TTE was 11/12/14 and showed moderately reduced EF, mod MR and mild/mod TR. She denies LOC, sob, cough, palpitations, n/v, and pain, diarrhea, constipation, dysuria, frequency or urgency. Subsequent hospital course: Tele observation. no events noted on tele monitor other than bradycardia. Cardiac markers neg x2. ICD interrogation with no events. Echo done showing severely reduced and global hypokinesis. BP monitored off home medications and improved. evaluated by cardio and lasix was d/c and lisiniopril was reduced to 5mg. (kept on coreg and imdur). noted to aslo have hypoglycemia. reduced night time levemir to 9 units and sugars remained controlled, not requiring coverage. d/c home on BP medication change as well as only on levemir 8 units at bedtime with sliding scale coverage. instructed to keep sugar log to bring to PMD appointment on saturday for further adjustment to medications. verbalized understanding and agreed with plan. Minutes to complete discharge: 35 Discharge Summary Reason For Visit: CHEST PAIN Current Active Problems Chest pain (Acute) Depression (Acute) Diabetic neuropathy (Acute) Hypoglycemia (Acute) Hypotension (Acute) Hypothermia (Acute) Lightheaded (Acute) Sciatica (Acute) - Instructions Diet, Activity, Other Instructions: Your home medications have changed, refer to medication list for these changes. Reduce your evening dose of insulin to 8 units. Conitnue your sliding scale coverage. check your sugars three times a day and record it. bring this log with you to your primary care doctor. Please see him on saturday or saturday the latest. Follow up with cardiology in 1 week, you may need further changes to your medications. If you develop dizzyness, or signs of high or low sugar return to the ER. Referrals: Ramy Valenzuela MD [Staff Physician] - Dana Colindres MD [Primary Care Provider] - Disposition: HOME - Home Medications Comprehensive Discharge Medication List: Ambulatory Orders Aspirin [ASA -] 81 mg PO DAILY 09/23/13 Acetaminophen [Pain Reliever] 1,000 mg PO PRN PRN 01/14/15 Albuterol Sulfate Inhaler - [Ventolin HFA Inhaler -] 1 - 2 inh PO Q4H 01/14/15 Isosorbide Mononitrate 30 mg PO DAILY 01/14/15 Levothyroxine [Synthroid -] 75 mcg PO DAILY 01/14/15 Meloxicam [Mobic (Nf) -] 15 mg PO DAILY PRN 01/14/15 Montelukast Na [Singulair -] 10 mg PO HS 01/14/15 Ranitidine HCl [Zantac] 150 mg PO BID 01/14/15 Simvastatin [Zocor -] 10 mg PO HS 01/14/15 Carvedilol [Coreg] 25 mg PO BID 04/27/15 Calcium 250Mg/Vit-D 125 Units [Oscal 250 mg+D -] 2 combo PO BID 07/13/15 Citalopram Hydrobromide [Celexa -] 40 mg PO DAILY 09/29/15 Acetaminophen [Tylenol] 650 mg PO Q6H #30 tablet 01/14/16 Insulin Lispro [Humalog] 0 unit SQ TID 02/14/16 Insulin (Levemir) [Levemir Flexpen -] 8 units SQ HS #1 pen 03/03/16 Lisinopril [Prinivil] 5 mg PO DAILY #30 tablet 03/03/16 This patient is new to me today: No Emergency Visit: Yes ED Registration Date: 03/02/16 Care time: The patient presented to the Emergency Department on the above date and was hospitalized for further evaluation of their emergent condition. Critical Care patient: No - Discharge Referral Referred to [facility] Med P.C.: No
--- NOTE | 2016-03-03 16:32 | EKG ---
Test Reason : Blood Pressure : / mmHG Vent. Rate : 061 BPM Atrial Rate : 061 BPM P-R Int : 150 ms QRS Dur : 136 ms QT Int : 502 ms P-R-T Axes : 066 -07 170 degrees QTc Int : 505 ms NORMAL SINUS RHYTHM WITH SINUS ARRHYTHMIA LEFT BUNDLE BRANCH BLOCK ABNORMAL ECG WHEN COMPARED WITH ECG OF 14-FEB-2016 15:56, NO SIGNIFICANT CHANGE WAS FOUND Confirmed by FRANCIA NATHAN MD ([id number]) on 03/03/2016 4:32:35 PM Referred By: Confirmed By:FRANCIA NATHAN MD
== END 2016-03-03 14:39 | disposition home or self-care (01) ==
LOC: JER 10:25 → JERBED 14:24 → J4W 17:35
PROVIDERS: ADMIT Internal Medicine; ATTEND Internal Medicine
DX: R07.89 Other chest pain (principal); E78.5 Hyperlipidemia, unspecified; I42.8 Other cardiomyopathies; E11.40 Type 2 diabetes mellitus with diabetic neuropathy, unspecified; J45.20 Mild intermittent asthma, uncomplicated; E03.9 Hypothyroidism, unspecified; I47.2 Ventricular tachycardia; I12.9 Hypertensive chronic kidney disease with stage 1 through stage 4 chronic kidney disease, or unspecified chronic kidney disease; N18.9 Chronic kidney disease, unspecified; N17.9 Acute kidney failure, unspecified; M25.519 Pain in unspecified shoulder; F41.8 Other specified anxiety disorders; I25.10 Atherosclerotic heart disease of native coronary artery without angina pectoris; Z95.810 Presence of automatic (implantable) cardiac defibrillator; Z79.4 Long term (current) use of insulin
CPT/HCPCS: 36415; 71010-TC; 73030-TC-LT; 80048; 80053; 81003; 81015; 82150; 82550; 82553; 83605; 83690; 83735; 84100; 84484; 85025; 85610; 85730; 86850; 86900; 86901; 87040; 87086; 93005; 93010; 93306-TC; 93971; 99285-25; G0378

== ENCOUNTER 2017-01-16 13:19 | Emergency (ER) | payer OTHER ==
[2017-01-16 14:09] VITALS: BP 157/72; PULSE 60; TEMP 98.4; BMI 32.4
--- NOTE | 2017-01-16 14:39 | PDOC ---
History of Present Illness - General Chief Complaint: Pain, Acute Stated Complaint: SHOULDER PAIN Time Seen by Provider: 01/16/17 14:08 - History of Present Illness Initial Comments: 01/16/17 14:37 61 yo F with multiple comorbidities including h/o HTN, HLD, NIDDM, COPD,CAD s/p AICD, CKD, and left sided sciatica who presents from [facility] with left shoulder pain. Complains of stable, dull, achy, left shoulder pain for past two weeks associated with intermittent left distal extremity numbness/ tingling. Exacerbated with movement and pressure. Pain not alleviated with Percocet . Denies recent trauma to, heavy lifting, repetitive strain, or weakness of involved extremity. Denies N/V, fevers/chills, chest pain, SOB, lightheadedness. No h/o CT, stent placement, CABG. Denies h/o TIA/CVA, or neurology f/u. Past History - Past Medical History Allergies/Adverse Reactions: Allergies Allergy/AdvReac Type Severity Reaction Status Date / Time No Known Allergies Allergy Verified 08/18/16 01:38 Home Medications: Ambulatory Orders Albuterol Sulfate Inhaler - [Ventolin Hfa Inhaler -] 1 - 2 inh PO Q4H 01/16/17 Albuterol Sulfate Inhaler - [Ventolin Hfa Inhaler -] 1 - 2 inh PO QID 01/16/17 Aspirin [ASA -] 81 mg PO DAILY 01/16/17 Calcium Carbonate/Vitamin D3 [Calcium 500 + Vit D 200 Caplet] 1 each PO BID Carvedilol 25 mg PO DAILY 01/16/17 Cholecalciferol (Vitamin D3) [Vitamin D3] 50,000 unit PO WEEKLY 01/16/17 Citalopram Hydrobromide [Celexa -] 40 mg PO DAILY 01/16/17 Fluticasone/Salmeterol [Advair 250-50 Diskus] 1 each IH BID 01/16/17 Gabapentin 300 mg PO TID 01/16/17 Glipizide 10 mg PO BID 01/16/17 Insulin (Levemir) [Levemir Vial] 11 unit SQ HS 01/16/17 Insulin Lispro [Humalog] 8 unit SQ ASDIR 01/16/17 Isosorbide Mononitrate [Imdur -] 30 mg PO DAILY 01/16/17 Levothyroxine [Synthroid -] 75 mcg PO DAILY 01/16/17 Lisinopril [Prinivil] 20 mg PO DAILY 01/16/17 Meloxicam [Mobic (Nf) -] 15 mg PO DAILY 01/16/17 Montelukast Na [Singulair -] 10 mg PO HS 01/16/17 Multivitamin [Poly-Vitamin] 1 each PO DAILY 01/16/17 Simvastatin [Zocor] 10 mg PO HS 01/16/17 Anemia: Yes Asthma: Yes Cancer: No Cardiac Disorders: Yes CVA: No COPD: No CHF: No Dementia: No Diabetes: Yes Dialysis: No GI Disorders: Yes (GERD) Disorders: No HTN: Yes Hypercholesterolemia: Yes Liver Disease: No Psychiatric Problems: Yes (DEPRESSION, ANXIETY.) Seizures: No Thyroid Disease: Yes (HYPO) - Surgical History Abdominal Surgery: Yes (HERNIA REPAIR) Appendectomy: Yes Cardiac Surgery: Yes (PPM/AICD) Cholecystectomy: Yes Lung Surgery: No Neurologic Surgery: No Orthopedic Surgery: No - Immunization History Immunization Up to Date: Yes - Suicide/Smoking/Psychosocial Hx Smoking Status: No Smoking History: Never smoked Years of Tobacco Use: 0 Have you smoked in the past 12 months: No Number of Cigarettes Smoked Daily: 0 Information on smoking cessation initiated: No Hx Alcohol Use: No Drug/Substance Use Hx: No Substance Use Type: None Hx Substance Use Treatment: No Review of Systems - Review of Systems Comments:: 01/16/17 14:39 GENERAL/CONSTITUTIONAL: No fever or chills. No weakness. HEAD, EYES, EARS, NOSE AND THROAT: No change in vision. No ear pain or discharge. No sore throat.- CARDIOVASCULAR: No chest pain or shortness of breath RESPIRATORY: No cough, wheezing, or hemoptysis. GASTROINTESTINAL: No nausea, vomiting, diarrhea or constipation. GENITOURINARY: No dysuria, frequency, or change in urination. MUSCULOSKELETAL: + Right shoulder pain. No joint swelling. No neck or back pain. SKIN: No rash NEUROLOGIC: No headache, vertigo, loss of consciousness, or change in strength/ sensation. ENDOCRINE: No increased thirst. No abnormal weight change HEMATOLOGIC/LYMPHATIC: No anemia, easy bleeding, or history of blood clots. ALLERGIC/IMMUNOLOGIC: No hives or skin allergy. *Physical Exam - Vital Signs Last Vital Signs Temp Pulse Resp BP Pulse Ox 98.4 F 60 20 157/72 97 01/16/17 14:02 01/16/17 14:02 01/16/17 14:02 01/16/17 14:02 01/16/17 14:02 - Physical Exam Comments: 01/16/17 14:38 GENERAL: Awake, alert, and fully oriented, in no acute distress HEAD: No signs of trauma, normocephalic, atraumatic EYES: PERRLA, EOMI, sclera anicteric, conjunctiva clear ENT: Hearing grossly normal, nares patent, oropharynx clear without exudates. Moist mucosa NECK: Normal ROM, supple, no JVD, or masses LUNGS: No distress, speaks full sentences, clear to auscultation bilaterally HEART: Regular rate and rhythm, normal S1 and S2, no murmurs, rubs or gallops, peripheral pulses normal and equal bilaterally. ABDOMEN: Soft, nontender, normoactive bowel sounds. No guarding, no rebound. No masses EXTREMITIES : Left shoulder tender to palpation at deltoid. Absent bony abnormalities noted. Pain with active and passive ROM. 4/5 Left shoulder abduction/extension. Normal inspection, Normal range of motion, no edema. Palpable and symmetric peripheral pulses. No clubbing or cyanosis. Left hand numbness/tingling of distal digits 1-4 and dorsal hand digits 1-3. SKIN: Warm, Dry, normal turgor, no rashes or lesions noted. Heart Score/ECG Review - History History: Slightly suspicious - Electrocardiogram EKG: Non specific repolarization disturbance - Age Age: 45-65 - Risk Factors Risk Factors Heart Score: Yes Hx Hypercholesterolemia, Yes Hx Hypertension, Yes Hx Diabetes, Yes Positive family hx of cardiac disease Based on the list above the patient has:: >/=3 risk factors or Hx atherosclerotic disease ED Treatment Course - LABORATORY CBC & Chemistry Diagram: 01/16/17 16:00 01/16/17 16:00 Medical Decision Making - Medical Decision Making 01/16/17 15:11 61 yo F with multiple comorbidities including h/o HTN, HLD, NIDDM, COPD,CAD s/p AICD, CKD, and left sided sciatica who presents from [facility] with left stable, dull, achy, right shoulder pain for past two weeks associated distal left extremity numbness/tingling. Exacerbated with movement and pressure. Pain not alleviated with Percocet. Denies recent trauma to, heavy lifting, repetitive strain, or weakness of involved extremity. Denies N/V, fevers/chills, chest pain, SOB, lightheadedness. No h/o CT, stent placement, CABG. Physical slightly limited 2/2 pain, but reveals left shoulder tender to palpation at deltoid and pain with active/passive ROM. 4/5 Left shoulder abduction/extension. Absent bony abnormalities noted. Palpable and symmetric peripheral pulses. No clubbing or cyanosis.Low suspicion for ACS/CT based on unremarkable history and physical exam. However, patient has multiple risk factors and shoulder pain has potential for anginal equivalent. Also numbness/ tingling is unlikely 2/2 CVA/TIA as the parasthesias is in median nerve distribution, and associated with no other neurological deficits. Pain most likely MSK in origin. ED Course: CBC, CMP, Cardiac Profile, L shoulder RAD 01/16/17 16:35 CXR: No acute pathology L Shoulder RAD: No fracture, dislocation, or acute pathology. Mild degenerative changes. CBC: Unremarkable. 01/16/17 17:02 EKG: AV dual paced rhythm with absent YANNICK, STD. 01/16/17 17:38 CMP: Unremarkable. Trop: Neg 01/16/17 17:40 Patient is stable and bedside and ready for discharge. Discussed findings with patient and agrees to follow up as outpatient with strict return precautions. Awaiting repeat troponin. Repeat Trop *DC/Admit/Observation/Transfer Diagnosis at time of Disposition: Left anterior shoulder pain - Discharge Dispostion Disposition: HOME Condition at time of disposition: Good Admit: No - Referrals Referrals: Dana Colindres MD [Primary Care Provider] - - Patient Instructions Printed Discharge Instructions: DI for Shoulder Pain Additional Instructions: Please return to the emergency department with any new or worsening symptoms or concerns. Please follow up with your primary care physician within one week. Please refer to Neurology for ongoing symptoms. Print Language: ROMANIAN - Post Discharge Activity - Attestations Physician Attestion: 01/16/17 16:58 I attest to the information provided in this note.
[2017-01-16] MEDS ORDERED: IBUPROFEN 600 MG TABLET (FP) PO ONE ×2 (14:52→15:42)
--- NOTE | 2017-01-16 15:41 | PDOC ---
Attending Attestation - Resident Resident Name: Bo Tolbert - ED Attending Attestation I have performed the following: I have examined & evaluated the patient, The case was reviewed & discussed with the resident, I agree w/resident's findings & plan, Exceptions are as noted - HPI HPI: 01/16/17 15:40 61 yo F with multiple comorbidities including h/o HTN, HLD, NIDDM, COPD,CAD s/p AICD, CKD, and left sided sciatica who presents from [facility] with 2 weeks of intermittent left shoulder pain and left fingertip numbness. The patient reports the pain is worse when she moves and ranges her left shoulder. She denies any trauma. She denies that the symptoms get worse with exertion. Denies any other symptoms of chest pain, shortness of breath, nausea, vomiting, diaphoresis, focal weakness. Denies fevers, chills. She reports the numbness is only of her middle 3 fingers and only of the tips. She denies that the shoulder pain radiates down her left arm. She states the numbness in her fingertips and the pain in her left arm are independent of each other. - Physicial Exam PE: 01/16/17 19:14 GENERAL: Awake, alert, and fully oriented, in no acute distress HEAD: No signs of trauma EYES: PERRLA, EOMI, sclera anicteric, conjunctiva clear ENT: Auricles normal inspection, hearing grossly normal, nares patent, oropharynx clear without exudates. Moist mucosa NECK: Normal ROM, supple, no lymphadenopathy, JVD, or masses LUNGS: Breath sounds equal, clear to auscultation bilaterally. No wheezes, and no crackles HEART: Regular rate and rhythm, normal S1 and S2, no murmurs, rubs or gallops ABDOMEN: Soft, nontender, normoactive bowel sounds. No guarding, no rebound. No masses EXTREMITIES: Normal range of motion, no edema. No clubbing or cyanosis. No cords, erythema. L shoulder with some tenderness anteriorly to palpation. Equal 2+ peripheral pulses b/l. NEUROLOGICAL: Normal speech, cranial nerves intact, negative pronator drift, 5/ 5 strength in all 4 extremities, normal sensation to light touch in all 4 extremities, normal cerebellar exam, normal gait, normal reflexes and tone SKIN: Warm, Dry, normal turgor, no rashes or lesions noted. - Medical Decision Making 01/16/17 17:17 61-year-old female with multiple medical problems presents with left shoulder pain and left fingertip numbness. Vitals are unremarkable. Exam is unremarkable and patient is well-appearing. Patient has no numbness or decreased sensation over her fingertips. She does have tenderness when ranging and palpating the left shoulder. Although this is likely musculoskeletal pain, we will check 2 troponins given patient's known risk factors. The fact that the symptoms are not worse with exertion and are reproducible are reassuring however. 01/16/17 18:18 First trop negative. Remainder of labs within normal limits. Pt asymptomatic in the ED. Signed out to Dr. Thompson for further eval and management. Heart Score/ECG Review - History History: Slightly suspicious - Electrocardiogram EKG: Normal - Age Age: 45-65 - Risk Factors Risk Factors Heart Score: Yes Hx Hypercholesterolemia, Yes Hx Hypertension Based on the list above the patient has:: >/=3 risk factors or Hx atherosclerotic disease - Troponin Troponin: </= normal limit - Score Heart Score - Total: 3 #1 01/16/17 19:16 Twelve-lead EKG was performed and reviewed by me. AV paced, rate 60.
[2017-01-16 16:25] LABS: BASOPHIL 0.4 % (0-2.0); EOSINOPHIL 2.9 % (0-4.5); MCH 31.1 pg (25.7-33.7); MEAN CELL VOLUME 94.1 fl (80-96); MEAN PLT VOLUME 8.2 fl (7.5-11.1); NEUTROPHILS 62.6 % (42.8-82.8); PLATELET COUNT 210 K/MM3 (134-434); RDW 14.7 % (11.6-15.6); WHITE BLOOD COUNT 4.8 K/mm3 (4.0-10.0)
[2017-01-16 16:55] LABS: ALBUMIN 3.4 g/dl (3.4-5.0); ANION GAP 6 (8-16); BILIRUBIN,TOTAL 0.2 mg/dL (0.2-1.0); CALCIUM 9.5 mg/dL (8.5-10.1); CO2 30 mmol/L (21-32); CREATININE 1.5 mg/dL (0.55-1.02); GLUCOSE,RANDOM 118 mg/dL (74-106); SGOT/AST 12 U/L (15-37); SGPT/ALT 24 U/L (12-78); TOT PROT 6.8 g/dl (6.4-8.2)
[2017-01-16 16:56] LABS: ALK PHOS 104 U/L (45-117)
[2017-01-16 17:03] LABS: CPK 67 IU/L (26-192); TROPONIN I < 0.02 ng/ml (0.00-0.05)
--- NOTE | 2017-01-17 12:54 | EKG ---
Test Reason : Blood Pressure : / mmHG Vent. Rate : 060 BPM Atrial Rate : 060 BPM P-R Int : 146 ms QRS Dur : 114 ms QT Int : 494 ms P-R-T Axes : 000 -89 071 degrees QTc Int : 494 ms AV dual-paced rhythm Biventricular pacemaker detected ABNORMAL ECG WHEN COMPARED WITH ECG OF 17-AUG-2016 23:49, VENT. RATE HAS DECREASED BY 2 BPM Confirmed by YUDELKA BAUER MD ([id number]) on 01/17/2017 12:54:09 PM Referred By: Confirmed By:YUDELKA BAUER MD
== END 2017-01-16 21:09 | disposition home or self-care (01) ==
LOC: JER 13:19
DX: M25.512 Pain in left shoulder (principal); I25.10 Atherosclerotic heart disease of native coronary artery without angina pectoris; I13.10 Hypertensive heart and chronic kidney disease without heart failure, with stage 1 through stage 4 chronic kidney disease, or unspecified chronic kidney disease; N18.9 Chronic kidney disease, unspecified; Z95.810 Presence of automatic (implantable) cardiac defibrillator; E11.9 Type 2 diabetes mellitus without complications; Z79.4 Long term (current) use of insulin; Z79.84 Long term (current) use of oral hypoglycemic drugs; E03.9 Hypothyroidism, unspecified; M54.42 Lumbago with sciatica, left side
CPT/HCPCS: 36415; 71010-TC; 73030-TC-LT; 80053; 82550; 84484; 85025; 93005; 93010; 99284-25

== ENCOUNTER 2017-12-06 20:51 | Emergency (ER) | payer OTHER ==
[2017-12-06 20:56] VITALS: BP 152/65; PULSE 86; TEMP 98.6; BMI 32.4
[2017-12-06] MEDS ORDERED: ALBUTEROL SO4 2.5/IPRATROPIUM 0.5 INH SOL 3 ML VIAL.NEB. NEB ONE ×4 (21:00→22:46)
--- NOTE | 2017-12-06 21:00 | PDOC ---
Rapid Medical Evaluation Chief Complaint: Cold Symptoms Time Seen by Provider: 12/06/17 20:56 Medical Evaluation: Allergies Allergy/AdvReac Type Severity Reaction Status Date / Time No Known Allergies Allergy Verified 12/06/17 20:56 Vital Signs Temp Pulse Resp BP Pulse Ox 98.6 F 86 20 152/65 98 12/06/17 20:54 12/06/17 20:54 12/06/17 20:54 12/06/17 20:54 12/06/17 20:54 12/06/17 20:57 I have performed a brief in-person evaluation of this patient. The patient presents with a chief complaint of: non-productive cough, nasal congestion, runny nose and tactile fever Pertinent physical exam findings:mild diffused wheezing. no respiratory distress. heart: RRR I have ordered the following: CXR. Duoneb tx The patient will proceed to the ED for further evaluation. 12/06/17 20:59 Discharge Disposition - Diagnosis Cough - Referrals - Patient Instructions - Post Discharge Activity
--- NOTE | 2017-12-06 22:22 | PDOC ---
History of Present Illness - General Chief Complaint: Cold Symptoms Stated Complaint: FEVER, CONGESTION, COUGHING Time Seen by Provider: 12/06/17 20:56 History Source: Patient Exam Limitations: No Limitations - History of Present Illness Initial Comments: 12/06/17 22:18 HISTORY OF PRESENT ILLNESS: This is a 62-year-old woman past medical history of hypertension, diabetes, hyperlipidemia, pacemaker, CHF, parkinson's who presents emergency Department with 3 days of moist nonproductive cough, fevers and nasal congestion. Patient states she's been taking her temperature at home with a MAXIMUM TEMPERATURE of 100.9 orally. Patient denies any difficulty swallowing or sore throats. She denies headaches, blurry vision, chest pain, shortness of breath, abdominal pain, nausea, vomiting. No recent travel or sick contacts. PAST MEDICAL HISTORY: See HPI SURGICAL HISTORY: Denies ALLERGIES: No known drug allergies REVIEW OF SYSTEMS General/Constitutional: +fever. Denies weakness, weight change. HEENT: Denies change in vision. Denies ear pain or discharge. Denies sore throat. Cardiovascular: Denies chest pain or shortness of breath. Respiratory: Moist nonproductive cough. Denies wheezing, or hemoptysis. Gastrointestinal: Denies nausea, vomiting, diarrhea or constipation. Denies rectal bleeding. Genitourinary: Denies dysuria, frequency, or change in urination. Musculoskeletal: Denies joint or muscle swelling or pain. Denies neck or back pain. Skin and breasts: Denies rash or easy bruising. Neurologic: Denies headache, vertigo, loss of consciousness, or loss of sensation. Psychiatric: Denies depression or anxiety. Endocrine: Denies increased thirst. Denies abnormal weight change. Hematologic/Lymphatic: Denies anemia, easy bleeding, or history of blood clots. Allergic/Immunologic: Denies hives or skin allergy. Denies latex allergy. PHYSICAL EXAM General Appearance: Well-appearing, appropriately dressed. No apparent distress , no intoxication. HEENT: EOMI, PERRLA, normal ENT inspection, normal voice, TMs normal, pharynx normal. No conjunctival pallor. No photophobia, scleral icterus. Neck: Supple. Trachea midline. No tenderness, rigidity, carotid bruit, stridor , lymphadenopathy, or thyromegaly. Respiratory/Chest: Lungs CTAB. No shortness of breath, chest tenderness, respiratory distress, accessory muscle use. No crackles, rales, rhonchi, stridor , dullness. Scattered wheezes present. Cardiovascular: RRR. S1, S2. No JVD, murmur, bradycardia, tachycardia. Vascular Pulses: Dorsalis-Pedis (R): 2+, Dorsalis-Pedis (L): 2+ Gastrointestinal/Abdominal: Normal bowel sounds. Abdomen soft, non-distended. No tenderness or rebound tenderness. No organomegaly, pulsatile mass, guarding, hernia, hepatomegaly, splenomegaly. Lymphatic: No adenopathy, tenderness. Musculoskeletal/Extremities: Normal inspection. FROM of all extremities, normal capillary refill. Pelvis Stable. No CVA tenderness. No tenderness to extremities, pedal edema, swelling, erythema or deformity. Integumentary: Appropriate color, dry, warm. No cyanosis, erythema, jaundice or rash Neurologic: director customer II-XII intact. Fully oriented, alert. Appropriate mood/affect. Motor strength 5/5. No appreciable EOM palsy, facial droop or sensory deficit. Past History - Past Medical History Allergies/Adverse Reactions: Allergies Allergy/AdvReac Type Severity Reaction Status Date / Time No Known Allergies Allergy Verified 12/06/17 20:56 Home Medications: Ambulatory Orders Albuterol Sulfate Inhaler - [Ventolin Hfa Inhaler -] 1 - 2 inh PO Q4H 01/16/17 Albuterol Sulfate Inhaler - [Ventolin Hfa Inhaler -] 1 - 2 inh PO QID 01/16/17 Aspirin [ASA -] 81 mg PO DAILY 01/16/17 Calcium Carbonate/Vitamin D3 [Calcium 500 + Vit D 200 Caplet] 1 each PO BID Carvedilol 25 mg PO DAILY 01/16/17 Cholecalciferol (Vitamin D3) [Vitamin D3] 50,000 unit PO WEEKLY 01/16/17 Citalopram Hydrobromide [Celexa -] 40 mg PO DAILY 01/16/17 Fluticasone/Salmeterol [Advair 250-50 Diskus] 1 each IH BID 01/16/17 Gabapentin 300 mg PO TID 01/16/17 Glipizide 10 mg PO BID 01/16/17 Insulin (Levemir) [Levemir Vial] 11 unit SQ HS 01/16/17 Insulin Lispro [Humalog] 8 unit SQ ASDIR 01/16/17 Isosorbide Mononitrate [Imdur -] 30 mg PO DAILY 01/16/17 Levothyroxine [Synthroid -] 75 mcg PO DAILY 01/16/17 Lisinopril [Prinivil] 20 mg PO DAILY 01/16/17 Meloxicam [Mobic (Nf) -] 15 mg PO DAILY 01/16/17 Montelukast Na [Singulair -] 10 mg PO HS 01/16/17 Multivitamin [Poly-Vitamin] 1 each PO DAILY 01/16/17 Simvastatin [Zocor] 10 mg PO HS 01/16/17 Azithromycin [Zithromax 250mg Tablets -] 250 mg PO UTDICT #6 tab 12/06/17 Anemia: Yes Asthma: Yes Cancer: No Cardiac Disorders: Yes CVA: No COPD: No CHF: No Dementia: No Diabetes: Yes Dialysis: No GI Disorders: Yes (GERD) Disorders: No HTN: Yes Hypercholesterolemia: Yes Liver Disease: No Psychiatric Problems: Yes (DEPRESSION, ANXIETY.) Seizures: No Thyroid Disease: Yes (HYPO) - Surgical History Abdominal Surgery: Yes (HERNIA REPAIR) Appendectomy: Yes Cardiac Surgery: Yes (PPM/AICD) Cholecystectomy: Yes Lung Surgery: No Neurologic Surgery: No Orthopedic Surgery: No - Immunization History Immunization Up to Date: Yes - Suicide/Smoking/Psychosocial Hx Smoking Status: No Smoking History: Never smoked Years of Tobacco Use: 0 Have you smoked in the past 12 months: No Number of Cigarettes Smoked Daily: 0 Hx Alcohol Use: No Drug/Substance Use Hx: No Substance Use Type: None Hx Substance Use Treatment: No *Physical Exam - Vital Signs Last Vital Signs Temp Pulse Resp BP Pulse Ox 98.6 F 86 20 152/65 98 12/06/17 20:54 12/06/17 20:54 12/06/17 20:54 12/06/17 20:54 12/06/17 20:54 ED Treatment Course - Medications Given in the ED: ED Medications Discontinued Medications Generic Name Dose Route Start Last Admin Trade Name Freq PRN Reason Stop Dose Admin Albuterol/Ipratropium 1 amp 12/06/17 21:00 12/06/17 21:48 Duoneb - NEB 12/06/17 21:01 1 amp ONCE ONE Administration Medical Decision Making - Medical Decision Making 12/06/17 22:20 A/P: 62-year-old woman with multiple medical problems with 3 days of moist cough, fevers and nasal congestion. Lungs with scattered wheezes Speaking full sentences Nebulizer treatments, chest x-ray Chest x-ray as read by me: cardiac silhouette is slightly enlarged. Dual- chamber pacemaker present. Surgical clips noted. No focal consolidations or infiltrates noted. No significant change from study performed 01/16/17. 12/06/17 22:51 Repeat lung exam reveals end expiratory wheezes. As her no signs of heart failure this is likely all pulmonary wheezing which has improved after nebulizer treatments. I'll discharge the patient home with prescription for azithromycin to treat her bronchitis. *DC/Admit/Observation/Transfer Diagnosis at time of Disposition: Bronchitis - Discharge Dispostion Disposition: HOME Condition at time of disposition: Stable Decision to Admit order: No - Prescriptions Prescriptions: Azithromycin [Zithromax 250mg Tablets -] 250 mg PO UTDICT #6 tab - Referrals Referrals: Dana Colindres MD [Primary Care Provider] - - Patient Instructions Additional Instructions: Take azithromycin 500 mg on the first day followed by 250 mg every day until all medication is complete. Take Tylenol as needed for pain or fever. Follow enamel buffer's instructions for appropriate dosage. Return to the emergency department for any worsening cough, shortness of breath , wheezing, chest pain, leg swelling or any other concerns. - Post Discharge Activity
[2017-12-06] MEDS: ALBUTEROL SO4 2.5/IPRATROPIUM 0.5 INH SOL 3 ML VIAL.NEB. NEB SCH ×3 (22:51→23:00)
== END 2017-12-06 23:02 | disposition home or self-care (01) ==
LOC: JERFT 20:51
PROC: 3E0F7GC Introduction of Other Therapeutic Substance into Respiratory Tract, Via Natural or Artificial Opening (ICD-10-PCS; principal; 2017-12-06)
DX: J40 Bronchitis, not specified as acute or chronic (principal); I25.10 Atherosclerotic heart disease of native coronary artery without angina pectoris; I11.0 Hypertensive heart disease with heart failure; Z95.810 Presence of automatic (implantable) cardiac defibrillator; E11.9 Type 2 diabetes mellitus without complications; Z79.4 Long term (current) use of insulin; Z79.84 Long term (current) use of oral hypoglycemic drugs; E78.00 Pure hypercholesterolemia, unspecified; D64.9 Anemia, unspecified; J45.909 Unspecified asthma, uncomplicated; F41.8 Other specified anxiety disorders; F32.9 Major depressive disorder, single episode, unspecified
CPT/HCPCS: 71046-TC-FY; 94640; 99281-25; J7620

== ENCOUNTER 2018-04-03 16:39 | Emergency (ER) | payer OTHER ==
[2018-04-03 16:50] VITALS: BP 169/89; PULSE 86; TEMP 98.2; BMI 32.4
[2018-04-03] MEDS ORDERED: KETOROLAC TROMETHAMINE 30 MG/1 ML VIAL IM ONE (18:25)
--- NOTE | 2018-04-03 18:27 | PDOC ---
History of Present Illness - General Chief Complaint: Pain Stated Complaint: solen face Time Seen by Provider: 04/03/18 18:07 History Source: Patient Exam Limitations: No Limitations - History of Present Illness Initial Comments: 04/03/18 18:27 CHIEF COMPLAINT: Leg pain HISTORY OF PRESENT ILLNESS: This is a 62-year-old female with a history of asthma, insulin-dependent diabetes, CHF/PPM, hypercholesterolemia, and depression who presents complaining of 5 days of right thigh pain. She denies fall or any other injury. She denies low back pain. She has not been taking anything for relief of the pain. She has limited weightbearing but is able to ambulate with a limp in the emergency department. Vital signs on arrival are notable for BP 168/89. REVIEW OF SYSTEMS: GENERAL/CONSTITUTIONAL: No fever or chills. No weakness. No weight change. HEAD, EYES, EARS, NOSE AND THROAT: No change in vision. No ear pain or discharge. No sore throat. CARDIOVASCULAR: No chest pain or palpitations. RESPIRATORY: No cough, wheezing, or shortness of breath. GASTROINTESTINAL: No nausea, vomiting, diarrhea or constipation. GENITOURINARY: No dysuria, frequency, or change in urination. MUSCULOSKELETAL: See HPI. SKIN: No rash or easy bruising. NEUROLOGIC: No headache, vertigo, loss of consciousness, or loss of sensation. PSYCHIATRIC: History of anxiety/depression. ENDOCRINE: No increased thirst. No abnormal weight change. HEMATOLOGIC/LYMPHATIC: No anemia, easy bleeding, or history of blood clots. ALLERGIC/IMMUNOLOGIC: No hives or skin allergy. No latex allergy. PHYSICAL EXAM: GENERAL: The patient is awake, alert, and fully oriented, in no acute distress. HEAD: Normal with no signs of trauma. ENT: Pupils equal, round and reactive to light, extraocular movements intact, sclera anicteric, conjunctiva clear. Neck supple. LUNGS: Clear to auscultation bilaterally. Normal excursion. No respiratory distress or use of accessory muscles. CV: RRR, S1/S2, no MRG. Cap refill < 2 sec. ABDOMEN: Soft, non-distended, non-tender. EXTREMITIES: Trace LE edema bilat, normal per patient. Tenderness to lateral aspect of right thigh; no bruising or edema. No hip tenderness. NEUROLOGICAL: Normal speech, normal gait. CN II-XII grossly intact. No midline vertebral tenderness. PSYCH: Normal mood, normal affect. SKIN: Warm, dry, normal turgor, no rashes or lesions noted. Past History - Past Medical History Allergies/Adverse Reactions: Allergies Allergy/AdvReac Type Severity Reaction Status Date / Time No Known Allergies Allergy Verified 04/03/18 16:46 Home Medications: Ambulatory Orders Albuterol Sulfate Inhaler - [Ventolin Hfa Inhaler -] 1 - 2 inh PO Q4H 01/16/17 Albuterol Sulfate Inhaler - [Ventolin Hfa Inhaler -] 1 - 2 inh PO QID 01/16/17 Aspirin [ASA -] 81 mg PO DAILY 01/16/17 Calcium Carbonate/Vitamin D3 [Calcium 500 + Vit D 200 Caplet] 1 each PO BID Carvedilol 25 mg PO DAILY 01/16/17 Cholecalciferol (Vitamin D3) [Vitamin D3] 50,000 unit PO WEEKLY 01/16/17 Citalopram Hydrobromide [Celexa -] 40 mg PO DAILY 01/16/17 Fluticasone/Salmeterol [Advair 250-50 Diskus] 1 each IH BID 01/16/17 Gabapentin 300 mg PO TID 01/16/17 Glipizide 10 mg PO BID 01/16/17 Insulin (Levemir) [Levemir Vial] 11 unit SQ HS 01/16/17 Insulin Lispro [Humalog] 8 unit SQ ASDIR 01/16/17 Isosorbide Mononitrate [Imdur -] 30 mg PO DAILY 01/16/17 Levothyroxine [Synthroid -] 75 mcg PO DAILY 01/16/17 Lisinopril [Prinivil] 20 mg PO DAILY 01/16/17 Meloxicam [Mobic (Nf) -] 15 mg PO DAILY 01/16/17 Montelukast Na [Singulair -] 10 mg PO HS 01/16/17 Multivitamin [Poly-Vitamin] 1 each PO DAILY 01/16/17 Simvastatin [Zocor] 10 mg PO HS 01/16/17 Azithromycin [Zithromax 250mg Tablets -] 250 mg PO UTDICT #6 tab 12/06/17 Anemia: Yes Asthma: Yes Cancer: No Cardiac Disorders: Yes CVA: No COPD: No CHF: No Dementia: No Diabetes: Yes Dialysis: No GI Disorders: Yes (GERD) Disorders: No HTN: Yes Hypercholesterolemia: Yes Liver Disease: No Psychiatric Problems: Yes (DEPRESSION, ANXIETY.) Seizures: No Thyroid Disease: Yes (HYPO) - Surgical History Abdominal Surgery: Yes (HERNIA REPAIR) Appendectomy: Yes Cardiac Surgery: Yes (PPM/AICD) Cholecystectomy: Yes Lung Surgery: No Neurologic Surgery: No Orthopedic Surgery: No - Immunization History Immunization Up to Date: Yes - Suicide/Smoking/Psychosocial Hx Smoking Status: No Smoking History: Never smoked Years of Tobacco Use: 0 Have you smoked in the past 12 months: No Number of Cigarettes Smoked Daily: 0 Hx Alcohol Use: No Drug/Substance Use Hx: No Substance Use Type: None Hx Substance Use Treatment: No *Physical Exam - Vital Signs Last Vital Signs Temp Pulse Resp BP Pulse Ox 98.2 F 86 16 169/89 949 H 04/03/18 16:46 04/03/18 16:46 04/03/18 16:46 04/03/18 16:46 04/03/18 16:46 Moderate Sedation - Procedure Monitoring Vital Signs: Procedure Monitoring Vital Signs Temperature 98.2 F 04/03/18 16:46 Pulse Rate 86 04/03/18 16:46 Respiratory Rate 16 04/03/18 16:46 Blood Pressure 169/89 04/03/18 16:46 O2 Sat by Pulse Oximetry (%) 949 H 04/03/18 16:46 ED Treatment Course - RADIOLOGY Radiology Studies Ordered: Category Date Time Status FEMUR-RIGHT [RAD] Stat Radiology 04/03/18 18:25 Ordered HIP & PELVIS-RIGHT [RAD] Stat Radiology 04/03/18 18:25 Ordered Medical Decision Making - Medical Decision Making 04/03/18 18:30 A/P: 62-year-old female with right thigh pain. -Xray right femur/hip/pelvis -Toradol 30mg IM x 1 for pain -Re-evaluate 04/03/18 20:17 X-ray demonstrates no acute fracture. As patient is feeling better after Toradol and is able to bear weight in the emergency department, do not suspect an occult hip fracture. Explained to patient and that patient may need orthopedic consultation and follow-up imaging if not improving. Will discharge with short course of ibuprofen and orthopedics referral. Patient has been in agreement with the plan. *DC/Admit/Observation/Transfer Diagnosis at time of Disposition: Thigh pain Qualifiers: Laterality: right Qualified Code(s): M79.651 - Pain in right thigh - Discharge Dispostion Disposition: HOME Condition at time of disposition: Stable - Referrals Referrals: Dana Colindres MD [Primary Care Provider] - Ramiro Mcfarlane DO [Staff Physician] - 1 week (Orthopedics if not improving) - Patient Instructions Printed Discharge Instructions: DI for Leg Pain Additional Instructions: -Rest and apply ice to the painful area -Take ibuprofen 400mg (2 tablets) every 6 hours with food for no longer than one week -Follow up with orthopedics (referral enclosed) if not improving -Return here for worsening pain/inability to bear weight or any other concerning symptoms - Post Discharge Activity
[2018-04-03] MEDS ORDERED: KETOROLAC TROMETHAMINE 30 MG/1 ML VIAL ONE (18:28)
== END 2018-04-03 20:27 | disposition home or self-care (01) ==
LOC: JERFT 16:39
PROC: 3E0233Z Introduction of Anti-inflammatory into Muscle, Percutaneous Approach (ICD-10-PCS; principal; 2018-04-03)
DX: M79.651 Pain in right thigh (principal); I25.10 Atherosclerotic heart disease of native coronary artery without angina pectoris; I11.0 Hypertensive heart disease with heart failure; Z95.810 Presence of automatic (implantable) cardiac defibrillator; D64.9 Anemia, unspecified; J45.909 Unspecified asthma, uncomplicated; E11.9 Type 2 diabetes mellitus without complications; Z79.4 Long term (current) use of insulin; Z79.84 Long term (current) use of oral hypoglycemic drugs; E03.9 Hypothyroidism, unspecified; K21.9 Gastro-esophageal reflux disease without esophagitis
CPT/HCPCS: 73523-TC-FY; 73552-TC-RT-FY; 99281-25

== ENCOUNTER 2018-05-22 15:06 | Emergency (ER) | payer OTHER ==
--- NOTE | 2018-05-22 16:23 | PDOC ---
Attending Attestation - HPI HPI: 05/22/18 16:50 The patient is a 62 year old female, with a significant PMH of asthma, insulin dependent diabetes, CHF/PPM, hypercholesterolemia, and depression who presents to the emergency department with 6 days of elevated blood sugar. The patient reports she noted blood sugar readings in the 500s since last Saturday. The patient states she saw her PCP on 05/21/18 who increased her Humolog from 8 to 10 units per day and Levamir from 18 to 24 units. The patient reports she received a call earlier today from her PCP advising her to come to the emergency department secondary to elevated potassium from blood work taken 05/21/18. The patient states she otherwise feels well and denies any complaints. Of note, the patient had a steroid injection in her cervical spine last Saturday by Dr Edge. The patient denies chest pain, shortness of breath, headache and dizziness. Denies fever, chills, nausea, vomit, diarrhea and constipation. Denies dysuria, frequency, urgency and hematuria. Allergies: NKA PCP: Dr Hays Documentation prepared by Clay Menezes, acting as medical case manager for Rhea Valles DO. <Clay Menezes - Last Filed: 05/22/18 16:50> - Physicial Exam PE: GENERAL: Awake, alert, and fully oriented, in no acute distress HEAD: No signs of trauma EYES: PERRLA, EOMI, sclera anicteric, conjunctiva clear ENT: Auricles normal inspection, hearing grossly normal, nares patent, oropharynx clear without exudates. Moist mucosa NECK: Normal ROM, supple, no lymphadenopathy, JVD, or masses LUNGS: Breath sounds equal, clear to auscultation bilaterally. No wheezes, and no crackles HEART: Regular rate and rhythm, normal S1 and S2, no murmurs, rubs or gallops ABDOMEN: +Obese with prominence of insulin injection cheng. Soft, nontender, normoactive bowel sounds. No guarding, no rebound. No masses EXTREMITIES: +Trace edema bilaterally at ankles. Normal range of motion. No clubbing or cyanosis. No cords, erythema, or tenderness NEUROLOGICAL: Cranial nerves II through XII grossly intact. Normal speech, normal gait SKIN: Warm, Dry, normal turgor, no rashes or lesions noted. 05/22/18 17:17 - Medical Decision Making Documentation prepared by ONDINA Garland, acting as medical case manager for Rhea Valles DO. 05/22/18 17:17 <Sivan Matamoros - Last Filed: 05/22/18 17:17> - Resident Resident Name: Favian Hernandez - ED Attending Attestation I have performed the following: I have examined & evaluated the patient, The case was reviewed & discussed with the resident, I agree w/resident's findings & plan, Exceptions are as noted - Critical Care Time Total Critical Care Time: 35 Critical Care Statement: The care of this patient involved high complexity decision making to prevent further life threatening deterioration of the patient 's condition and/or to evaluate & treat vital organ system(s) failure or risk of failure. - Medical Decision Making 05/22/18 16:23 I, Dr. Rhea Valles DO, attest that this document has been prepared under my direction and personally reviewed by me in its entirety. I further attest, that it accurately reflects all work, treatment, procedures and medical decision -making performed by me. 05/22/18 18:09 a/p: 62yo female sent from her PMD for eval of abnl labs -has had elevated gluc as an outpt -as outpt also had an elevated K -pt denies all other complaints -no sore throat, no rhinorrhea, no cp/sob/cough/palpitations -no abd pain, no n/v/d -no dysuria -pt denies núñez, lightheaded or dizziness -will send labs, pt with mild oral dry mm -will add ivf hydration -no acute ekg changes -will monitor and reassess 05/22/18 18:14 potassium 6.2 -will treat potassium -will continue to hydrate and will monitor and reassess 05/22/18 21:20 repeat labs show improved potassium and improved glucose pt stable for dc to home <Rhea Valles - Last Filed: 05/22/18 21:20> Heart Score/ECG Review - ECG Intrepretation Comment:: 05/22/18 18:15 a sensed and v paced, no acute changes <Rhea Valles - Last Filed: 05/22/18 21:20>
--- NOTE | 2018-05-22 16:42 | PDOC ---
History of Present Illness - General Chief Complaint: Revisit, Lab Variance Stated Complaint: Blood Sugar Problem Time Seen by Provider: 05/22/18 16:20 History Source: Patient Exam Limitations: No Limitations - History of Present Illness Initial Comments: 05/22/18 16:35 62 yo female pmh pf IDDM (current home dose of humolog 10 units 3 times a day and levamir 24 units with meals) asthma, CHF, permanent pace maker, HLD and depression presents to the ED with 6 days of elevated blood sugars. Pt states since last Saturday she has noticed elevated blood sugars in the 500s, saw her PCP 05/21/2018 for concerns and was told to increase humolog from 8-10 units 3 times a day and levamir from 18-24 units with meals. Pt received a call from PCP today, told to go to the ER for elevated potassium from blood work taken 04/2018. Of note, patient had steroid injection in her cervical spine last Saturday by Dr. Edge and was told by PCP this may be the cause of her elevated blood sugars. Pt has no new medical complaints such as CP, palpitations, SOB, abdominal pain, back pain, changes in bowel or bladder habits, F/C/N/V. Past History - Past Medical History Allergies/Adverse Reactions: Allergies Allergy/AdvReac Type Severity Reaction Status Date / Time No Known Allergies Allergy Verified 04/03/18 16:46 Home Medications: Ambulatory Orders Albuterol Sulfate Inhaler - [Ventolin Hfa Inhaler -] 1 - 2 inh PO Q4H 01/16/17 Albuterol Sulfate Inhaler - [Ventolin Hfa Inhaler -] 1 - 2 inh PO QID 01/16/17 Aspirin [ASA -] 81 mg PO DAILY 01/16/17 Calcium Carbonate/Vitamin D3 [Calcium 500 + Vit D 200 Caplet] 1 each PO BID Carvedilol 25 mg PO DAILY 01/16/17 Cholecalciferol (Vitamin D3) [Vitamin D3] 50,000 unit PO WEEKLY 01/16/17 Citalopram Hydrobromide [Celexa -] 40 mg PO DAILY 01/16/17 Fluticasone/Salmeterol [Advair 250-50 Diskus] 1 each IH BID 01/16/17 Gabapentin 300 mg PO TID 01/16/17 Glipizide 10 mg PO BID 01/16/17 Insulin (Levemir) [Levemir Vial] 11 unit SQ HS 01/16/17 Insulin Lispro [Humalog] 8 unit SQ ASDIR 01/16/17 Isosorbide Mononitrate [Imdur -] 30 mg PO DAILY 01/16/17 Levothyroxine [Synthroid -] 75 mcg PO DAILY 01/16/17 Lisinopril [Prinivil] 20 mg PO DAILY 01/16/17 Meloxicam [Mobic (Nf) -] 15 mg PO DAILY 01/16/17 Montelukast Na [Singulair -] 10 mg PO HS 01/16/17 Multivitamin [Poly-Vitamin] 1 each PO DAILY 01/16/17 Simvastatin [Zocor] 10 mg PO HS 01/16/17 Azithromycin [Zithromax 250mg Tablets -] 250 mg PO UTDICT #6 tab 12/06/17 Anemia: Yes Asthma: Yes Cancer: No Cardiac Disorders: Yes CVA: No COPD: No CHF: No Dementia: No Diabetes: Yes Dialysis: No GI Disorders: Yes (GERD) Disorders: No HTN: Yes Hypercholesterolemia: Yes Liver Disease: No Psychiatric Problems: Yes (DEPRESSION, ANXIETY.) Seizures: No Thyroid Disease: Yes (HYPO) - Surgical History Abdominal Surgery: Yes (HERNIA REPAIR) Appendectomy: Yes Cardiac Surgery: Yes (PPM/AICD) Cholecystectomy: Yes Lung Surgery: No Neurologic Surgery: No Orthopedic Surgery: No - Immunization History Immunization Up to Date: Yes - Suicide/Smoking/Psychosocial Hx Smoking Status: No Smoking History: Never smoked Years of Tobacco Use: 0 Have you smoked in the past 12 months: No Number of Cigarettes Smoked Daily: 0 Hx Alcohol Use: No Drug/Substance Use Hx: No Substance Use Type: None Hx Substance Use Treatment: No Review of Systems - Review of Systems Constitutional: No: Chills, Fever HEENTM: No: Blurred Vision, Double Vision Respiratory: No: Shortness of Breath Cardiac (ROS): No: Chest Pain, Edema ABD/GI: No: Constipated, Diarrhea, Nausea, Vomiting, Abdominal cramping : No: Burning, Dysuria, Discharge, Frequency, Flank Pain, Hematuria, Incontinence Musculoskeletal: No: Back Pain Neurological: No: Headache, Numbness, Paresthesia, Weakness *Physical Exam - Physical Exam General Appearance: Yes: Nourished, Appropriately Dressed. No: Apparent Distress HEENT: positive: EOMI Neck: positive: Supple. negative: Tender, Carotid bruit, Tender lateral, Tender midline Respiratory/Chest: positive: Lungs Clear, Normal Breath Sounds. negative: Respiratory Distress, Accessory Muscle Use, Crackles, Rales, Rhonchi, Stridor, Wheezing Cardiovascular: positive: Regular Rhythm, Regular Rate, S1, S2. negative: Edema , JVD, Murmur Vascular Pulses: Dorsalis-Pedis (R): 3+, Doralis-Pedis (L): 3+ Gastrointestinal/Abdominal: positive: Flat, Soft. negative: Pulsatile Mass, Protuberent, Distended, Guarding, Rebound, Tenderness Extremity: positive: Normal Capillary Refill, Normal Inspection, Normal Range of Motion, Pedal Edema. negative: Calf Tenderness, Erythema Integumentary: positive: Normal Color, Dry, Warm. 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 Pt has no medical complaints today and feels at baseline vitals WNL NAD, non toxic appearing, AOX3 EKG shows paced rhythm, no st changes DDX INLT: recent steroid injection leading to elevated BS, infection, change in diet, pancreatic burnout leading to increase insulin requirement CBC wnl CMP shws elevated K and BS VBG WNL Acetone negative trops neg cxr negative for acute changes or path Pt appears dry, will give fluids, insulin, albuterol and kayexcalate, reassess with CMP after treatment CMP shows improvement in BS and K, pt continues to be asymptomatic. Will call PCP for f/u appointment and present case 05/22/18 21:34 Called PCP Nini, rang out twice without answering machine. Pt is stable and safe for DC home Pt understands and agrees to plan, will see PCP cecilia Strict return precautions given *DC/Admit/Observation/Transfer Diagnosis at time of Disposition: Hyperglycemia, Hyperkalemia - Discharge Dispostion Disposition: HOME Condition at time of disposition: Stable Decision to Admit order: No - Referrals Referrals: Dana Colindres MD [Primary Care Provider] - - Patient Instructions Printed Discharge Instructions: DI for Hyperkalemia, DI for Hyperglycemia -- Adult Additional Instructions: Please see your primary Doctor and Kidney specialist within the next 48 hours to discuss your elevated blood sugar and potassium levels. Your blood sugar and potassium improved after treatment in the hospital. Continue taking your home dosed medications as prescribed. Return to the ER for new or concerning symptoms including but not limited to: high fevers, weakness, headaches, continued uncontrolled blood sugar. Thank you - Post Discharge Activity
[2018-05-22 16:54] VITALS: BMI 32.4
[2018-05-22] MEDS ORDERED: SODIUM CHLORIDE 0.9% 1000 ML INFUS.BAG IV ONE ×2 (17:01→18:01)
[2018-05-22 17:17] LABS: BASO % 0.7 % (0-2.0); EOS % 0.3 % (0-4.5); HEMATOCRIT 37.6 % (32.4-45.2); HEMOGLOBIN 12.3 GM/dL (10.7-15.3); LYMPH % 10.1 % (8-40); MCH 31.7 pg (25.7-33.7); MCHC 32.8 g/dl (32.0-36.0); MEAN CELL VOLUME 96.6 fl (80-96); MEAN PLT VOLUME 8.4 fl (7.5-11.1); MONO % 6.6 % (3.8-10.2); NEUT % 82.3 % (42.8-82.8); PLATELET COUNT 249 K/MM3 (134-434); RBC 3.89 M/mm3 (3.60-5.2); RDW 14.9 % (11.6-15.6); WHITE BLOOD COUNT 9.5 K/mm3 (4.0-10.0)
[2018-05-22] MEDS ORDERED: FUROSEMIDE 20 MG TABLET (FP) PO ONE (17:22)
[2018-05-22] MEDS ORDERED: ACETAMINOPHEN 325 MG TABLET (FP) PO ONE (17:25)
[2018-05-22 17:28] LABS: VENOUS PC02 54.3 mmHg (41-51); VENOUS PH 7.33 (7.31-7.41); VENOUS PO2 29.9 mmHg (30-40)
[2018-05-22] MEDS ORDERED: FUROSEMIDE 40 MG TABLET (FP) ONE (17:36)
[2018-05-22] MEDS ORDERED: ACETAMINOPHEN 325 MG TABLET (FP) ONE (17:36)
[2018-05-22 17:56] LABS: ALBUMIN 3.2 g/dl (3.4-5.0); ALK PHOS 134 U/L (45-117); ANION GAP 7 MMOL/L (8-16); BILIRUBIN,TOTAL 0.2 mg/dL (0.2-1); BLOOD UREA NITROGEN 46 mg/dL (7-18); CHLORIDE 96 mmol/L (98-107); CO2 29 mmol/L (21-32); CREATININE 2.2 mg/dL (0.55-1.3); SGOT/AST 17 U/L (15-37); SGPT/ALT 26 U/L (13-61); SODIUM 132 mmol/L (136-145); TOT PROT 7.1 g/dl (6.4-8.2)
[2018-05-22 17:58] LABS: GLUCOSE,RANDOM 400 mg/dL (74-106); POTASSIUM 6.2 mmol/L (3.5-5.1)
[2018-05-22] MEDS ORDERED: INSULIN REGULAR HUMAN 100 UNITS/ML *VIAL IVPUSH ONE (18:00)
[2018-05-22 18:01] LABS: EPI CELLS 1.2 /HPF (0-5); URINE APPEARANCE CLEAR; URINE BACTERIA 5.1 /hpf (NEGATIVE); URINE BILIRUBIN NEGATIVE (NEGATIVE); URINE CASTS 2 /hpf (0-8); URINE COLOR YELLOW; URINE GLUCOSE (UA) 3+ (NEGATIVE); URINE KETONE NEGATIVE (NEGATIVE); URINE LEUK ESTERASE NEGATIVE (NEGATIVE); URINE NITRITE NEGATIVE (NEGATIVE); URINE PROTEIN 2+ (NEGATIVE); URINE RBC 1 /hpf (0-4); URINE UROBILINOGEN 0.2 mg/dL (0.2-1.0); URINE WBC 8 /hpf (0-5)
[2018-05-22] MEDS ORDERED: ALBUTEROL SO4 0.083% IH SOL 2.5 MG/3 ML VIAL.NEB. NEB ONE ×2 (18:02→18:14)
[2018-05-22] MEDS ORDERED: SODIUM POLYSTYRENE SULFONATE 15 GM/60 ML BOTTLE PO ONE (18:02)
[2018-05-22] MEDS ORDERED: SODIUM BICARBONATE 8.4% 50 MEQ/50 ML DISP.SYRIN IVPUSH ONE (18:02)
[2018-05-22] MEDS ORDERED: SODIUM POLYSTYRENE SULFONATE 15 GM/60 ML BOTTLE ONE (18:14)
[2018-05-22] MEDS ORDERED: SODIUM BICARBONATE 8.4% - 50 ML ONE (18:14)
[2018-05-22] MEDS ORDERED: INSULIN REGULAR HUMAN 100 UNITS/ML *VIAL ONE ×2 (18:15→20:08)
[2018-05-22 18:21] LABS: ACETONE SERUM NEGATIVE (NEGATIVE)
[2018-05-22 18:30] LABS: ANISOCYTOSIS 1+; MACROCYTOSIS 1+
[2018-05-22 18:31] LABS: PLATELET ESTIMATE ADEQUATE
[2018-05-22] MEDS ORDERED: INSULIN NPH 100 UNITS/ML *VIAL ONE ×2 (18:43→19:02)
[2018-05-22 21:15] LABS: ALBUMIN 3.2 g/dl (3.4-5.0); ALK PHOS 136 U/L (45-117); ANION GAP 7 MMOL/L (8-16); BILIRUBIN,TOTAL 0.3 mg/dL (0.2-1); BLOOD UREA NITROGEN 44 mg/dL (7-18); CALCIUM 8.5 mg/dL (8.5-10.1); CHLORIDE 102 mmol/L (98-107); CO2 30 mmol/L (21-32); CREATININE 2.2 mg/dL (0.55-1.3); GLUCOSE,RANDOM 265 mg/dL (74-106); POTASSIUM 4.4 mmol/L (3.5-5.1); SGOT/AST 21 U/L (15-37); SGPT/ALT 30 U/L (13-61); SODIUM 139 mmol/L (136-145); TOT PROT 6.8 g/dl (6.4-8.2)
[2018-05-22 22:20] VITALS: BP 161/83; PULSE 84; TEMP 98.5
--- NOTE | 2018-05-23 12:23 | EKG ---
Test Reason : Blood Pressure : / mmHG Vent. Rate : 067 BPM Atrial Rate : 067 BPM P-R Int : 130 ms QRS Dur : 120 ms QT Int : 492 ms P-R-T Axes : 071 -81 103 degrees QTc Int : 519 ms Atrial-sensed ventricular-paced rhythm Biventricular pacemaker detected ABNORMAL ECG WHEN COMPARED WITH ECG OF 16-JAN-2017 16:29, VENT. RATE HAS INCREASED BY 7 BPM Confirmed by ELVIRA BELL, NAZIA ([id number]) on 05/23/2018 12:23:09 PM Referred By: Confirmed By:NAZIA FELIX MD
== END 2018-05-22 22:20 | disposition home or self-care (01) ==
LOC: JER 15:06
PROC: 3E0F7GC Introduction of Other Therapeutic Substance into Respiratory Tract, Via Natural or Artificial Opening (ICD-10-PCS; principal; 2018-05-22)
PROC: 3E033VG Introduction of Insulin into Peripheral Vein, Percutaneous Approach (ICD-10-PCS; 2018-05-22)
PROC: 3E033GC Introduction of Other Therapeutic Substance into Peripheral Vein, Percutaneous Approach (ICD-10-PCS; 2018-05-22)
DX: E11.65 Type 2 diabetes mellitus with hyperglycemia (principal); Z79.4 Long term (current) use of insulin; E87.5 Hyperkalemia; I11.0 Hypertensive heart disease with heart failure; I50.9 Heart failure, unspecified; K21.9 Gastro-esophageal reflux disease without esophagitis; E03.9 Hypothyroidism, unspecified; D64.9 Anemia, unspecified; F41.8 Other specified anxiety disorders; F32.9 Major depressive disorder, single episode, unspecified
CPT/HCPCS: 36415; 71045-TC-FY; 80053; 81003; 82009; 82550; 82803; 84484; 85025; 87077; 87086; 93005; 93010; 99284-25; J7030

== ENCOUNTER 2018-06-17 19:15 | Emergency (ER) | payer OTHER ==
--- NOTE | 2018-06-17 19:23 | PDOC ---
Rapid Medical Evaluation Chief Complaint: Pain Time Seen by Provider: 06/17/18 19:20 Medical Evaluation: Allergies Allergy/AdvReac Type Severity Reaction Status Date / Time No Known Allergies Allergy Verified 04/03/18 16:46 06/17/18 19:21 I have performed a brief in person evaluation at triage on this patient. CC: RLQ pain/Right LE pain HPI: Pt states she has RLQ pain and right LE pain x 1 day. PE: Skin: clear Lungs: clear Heart: RRR Abd: pain upon palpation to the RLQ, no rebound tenderness. MS: Moves all extremities without difficulty Neuro: Alert and oriented Psych: Appropriate affect I have ordered: abd protocol Pt will proceed to the main ED for further evaluation. Discharge Disposition - Diagnosis Abdominal pain Qualifiers: Abdominal location: right lower quadrant Qualified Code(s): R10.31 - Right lower quadrant pain - Referrals - Patient Instructions - Post Discharge Activity
[2018-06-17 19:24] VITALS: BP 173/95; PULSE 89; TEMP 98.6; BMI 34.6
[2018-06-17 21:04] LABS: BASO % 0.6 % (0-2.0); HEMATOCRIT 39.5 % (32.4-45.2); HEMOGLOBIN 13.1 GM/dL (10.7-15.3); LYMPH % 11.8 % (8-40); MCH 32.2 pg (25.7-33.7); MCHC 33.2 g/dl (32.0-36.0); MEAN CELL VOLUME 97.2 fl (80-96); MEAN PLT VOLUME 7.5 fl (7.5-11.1); MONO % 5.5 % (3.8-10.2); NEUT % 81.1 % (42.8-82.8); PLATELET COUNT 254 K/MM3 (134-434); RBC 4.07 M/mm3 (3.60-5.2); RDW 15.2 % (11.6-15.6); WHITE BLOOD COUNT 7.4 K/mm3 (4.0-10.0)
[2018-06-17 21:35] LABS: ALBUMIN 3.6 g/dl (3.4-5.0); ALK PHOS 139 U/L (45-117); ANION GAP 9 MMOL/L (8-16); BILIRUBIN,TOTAL 0.3 mg/dL (0.2-1); BLOOD UREA NITROGEN 24 mg/dL (7-18); CALCIUM 9.4 mg/dL (8.5-10.1); CHLORIDE 102 mmol/L (98-107); CO2 27 mmol/L (21-32); CREATININE 1.6 mg/dL (0.55-1.3); GLUCOSE,RANDOM 163 mg/dL (74-106); LIPASE 154 U/L (73-393); SGPT/ALT 39 U/L (13-61); SODIUM 138 mmol/L (136-145); TOT PROT 7.5 g/dl (6.4-8.2)
[2018-06-17 21:36] LABS: POTASSIUM 4.9 mmol/L (3.5-5.1); SGOT/AST 29 U/L (15-37)
--- NOTE | 2018-06-17 23:25 | PDOC ---
History of Present Illness - General Chief Complaint: Pain Stated Complaint: ABD. PAIN Time Seen by Provider: 06/17/18 19:20 History Source: Patient - History of Present Illness Initial Comments: 06/17/18 23:39 The patient is a 62 year old female with a PMH of IDDM, HLD, CHF (s/p PPM) presents to our ED c/o 1 day of abdominal pain. Pain started yesterday evening and is constant, squeezing, localized to her RLQ with no noted triggering or relieving factors and radiates down her RLE. Tolerating PO intake, c/o nausea. Last bowel movement was yesterday and was normal. NKDA Surgical: Hernia repair, cholecystectomy, appendectomy Social: denies toxic habits PMD: Dr. Nini Perez Past History - Past Medical History Allergies/Adverse Reactions: Allergies Allergy/AdvReac Type Severity Reaction Status Date / Time No Known Allergies Allergy Verified 04/03/18 16:46 Home Medications: Ambulatory Orders Albuterol Sulfate Inhaler - [Ventolin Hfa Inhaler -] 1 - 2 inh PO Q4H 01/16/17 Albuterol Sulfate Inhaler - [Ventolin Hfa Inhaler -] 1 - 2 inh PO QID 01/16/17 Aspirin [ASA -] 81 mg PO DAILY 01/16/17 Calcium Carbonate/Vitamin D3 [Calcium 500 + Vit D 200 Caplet] 1 each PO BID Carvedilol 25 mg PO DAILY 01/16/17 Cholecalciferol (Vitamin D3) [Vitamin D3] 50,000 unit PO WEEKLY 01/16/17 Citalopram Hydrobromide [Celexa -] 40 mg PO DAILY 01/16/17 Fluticasone/Salmeterol [Advair 250-50 Diskus] 1 each IH BID 01/16/17 Gabapentin 300 mg PO TID 01/16/17 Glipizide 10 mg PO BID 01/16/17 Insulin (Levemir) [Levemir Vial] 11 unit SQ HS 01/16/17 Insulin Lispro [Humalog] 8 unit SQ ASDIR 01/16/17 Isosorbide Mononitrate [Imdur -] 30 mg PO DAILY 01/16/17 Levothyroxine [Synthroid -] 75 mcg PO DAILY 01/16/17 Lisinopril [Prinivil] 20 mg PO DAILY 01/16/17 Meloxicam [Mobic (Nf) -] 15 mg PO DAILY 01/16/17 Montelukast Na [Singulair -] 10 mg PO HS 01/16/17 Multivitamin [Poly-Vitamin] 1 each PO DAILY 01/16/17 Simvastatin [Zocor] 10 mg PO HS 01/16/17 Azithromycin [Zithromax 250mg Tablets -] 250 mg PO UTDICT #6 tab 12/06/17 Tramadol HCl 50 mg PO BID PRN #6 tablet MDD 2 06/18/18 Tramadol HCl 50 mg PO BID PRN #6 tablet MDD 2 06/18/18 Anemia: Yes Asthma: Yes Cancer: No Cardiac Disorders: Yes CVA: No COPD: No CHF: No Dementia: No Diabetes: Yes Dialysis: No GI Disorders: Yes (GERD) Disorders: No HTN: Yes Hypercholesterolemia: Yes Liver Disease: No Psychiatric Problems: Yes (DEPRESSION, ANXIETY.) Seizures: No Thyroid Disease: Yes (HYPO) - Surgical History Abdominal Surgery: Yes (HERNIA REPAIR) Appendectomy: Yes Cardiac Surgery: Yes (PPM/AICD) Cholecystectomy: Yes Lung Surgery: No Neurologic Surgery: No Orthopedic Surgery: No - Immunization History Immunization Up to Date: Yes - Suicide/Smoking/Psychosocial Hx Smoking Status: No Smoking History: Never smoked Years of Tobacco Use: 0 Have you smoked in the past 12 months: No Number of Cigarettes Smoked Daily: 0 Hx Alcohol Use: No Drug/Substance Use Hx: No Substance Use Type: None Hx Substance Use Treatment: No Review of Systems - Review of Systems Constitutional: No: Chills, Fever HEENTM: No: Recent change in vision Respiratory: No: Cough, Productive cough Cardiac (ROS): No: Edema, Lightheadedness, Palpitations, Syncope ABD/GI: No: Constipated, Diarrhea, Nausea, Vomiting : No: Burning, Dysuria Musculoskeletal: Yes: Other (RLE pain) *Physical Exam - Vital Signs Last Vital Signs Temp Pulse Resp BP Pulse Ox 98.6 F 89 20 173/95 H 98 06/17/18 19:21 06/17/18 19:21 06/17/18 19:21 06/17/18 19:21 06/17/18 19:21 - Physical Exam Comments: 06/18/18 03:46 Awake, alert Abdomen: (+) bowel sounds, RLQ TTP CV: S1, S2, no M/R/G Respiratory: CLTA B/L, no wheeze/crackle Extremity: 2+ DP pulses B/L, R hip flexor TTP, full ROM of RLE ED Treatment Course - LABORATORY CBC & Chemistry Diagram: 06/17/18 20:49 06/17/18 20:49 - ADDITIONAL ORDERS Additional order review: Laboratory Results 06/17/18 20:49 Sodium 138 Potassium 4.9 Chloride 102 Carbon Dioxide 27 Anion Gap 9 BUN 24 H Creatinine 1.6 H Creat Clearance w eGFR 32.77 Random Glucose 163 H Calcium 9.4 Total Bilirubin 0.3 AST 29 ALT 39 Alkaline Phosphatase 139 H Total Protein 7.5 Albumin 3.6 Lipase 154 06/17/18 20:49 RBC 4.07 MCV 97.2 H MCHC 33.2 RDW 15.2 MPV 7.5 D Neutrophils % 81.1 Lymphocytes % 11.8 Monocytes % 5.5 Eosinophils % 1.0 D Basophils % 0.6 Medical Decision Making - Medical Decision Making 06/18/18 00:00 62 year old female with abdominal pain. BP 173/95, other VS unremarkable. Diffuse abdominal TTP w/o peritoneal signs. Will obtain abdominal CT. Morphine for pain control. Reassess. 06/18/18 02:[address] negative, continues to c/o RLE pain. Clinical suspicion for Hip flexor strain as patient details walking [place] a hill from her home to a grocery store. Will discharge home with return precautions, PMD follow-up and pain control. I discussed the physical exam findings, ancillary test results and final diagnoses with the patient. I answered all of the patient's questions. The patient was satisfied with the care received and felt comfortable with the discharge plan and treatment plan. The patient will return to the Emergency Department with any new, persistent or worsening symptoms. *DC/Admit/Observation/Transfer Diagnosis at time of Disposition: Strain of hip flexor - Discharge Dispostion Disposition: HOME Condition at time of disposition: Good Decision to Admit order: No - Prescriptions Prescriptions: Tramadol HCl 50 mg PO BID PRN #6 tablet MDD 2 PRN Reason: Pain Tramadol HCl 50 mg PO BID PRN #6 tablet MDD 2 PRN Reason: Pain - Referrals Referrals: Dana Colindres MD [Primary Care Provider] - - Patient Instructions Additional Instructions: We have sent a prescription to your pharmacy. Please take the medication as directed. Follow-up with your primary care doctor in the next 3 days. Your care is not complete until you are evaluated by your primary care doctor. Please tell your primary care doctor that your cat scan showed no concerning findings. Return to the Emergency Department for any new/worsening/concerning symptoms. - Post Discharge Activity
[2018-06-17] MEDS ORDERED: morphine CARPU-JECT 4 MG/1 ML DISP.SYRIN IVPUSH ONE (23:44)
[2018-06-17] MEDS ORDERED: ONDANSETRON 4 MG/2 ML VIAL IVPUSH ONE (23:59)
[2018-06-17] MEDS ORDERED: morphine SULFATE 4 MG/ML VIAL ONE (23:59)
[2018-06-18] MEDS ORDERED: ONDANSETRON 4 MG/2 ML VIAL ONE
--- NOTE | 2018-06-18 10:32 | EKG ---
Test Reason : Blood Pressure : / mmHG Vent. Rate : 090 BPM Atrial Rate : 090 BPM P-R Int : 138 ms QRS Dur : 124 ms QT Int : 432 ms P-R-T Axes : 064 -86 082 degrees QTc Int : 528 ms Atrial-sensed ventricular-paced rhythm Biventricular pacemaker detected ABNORMAL ECG WHEN COMPARED WITH ECG OF 22-MAY-2018 16:56, VENT. RATE HAS INCREASED BY 23 BPM Confirmed by ELVIRA BELL, NAZIA ([id number]) on 06/18/2018 10:31:50 AM Referred By: Confirmed By:NAZIA FELIX MD
== END 2018-06-18 02:47 | disposition home or self-care (01) ==
LOC: JER 19:15
PROC: 3E033NZ Introduction of Analgesics, Hypnotics, Sedatives into Peripheral Vein, Percutaneous Approach (ICD-10-PCS; principal; 2018-06-17)
PROC: 3E033GC Introduction of Other Therapeutic Substance into Peripheral Vein, Percutaneous Approach (ICD-10-PCS; 2018-06-17)
DX: S76.011A Strain of muscle, fascia and tendon of right hip, initial encounter (principal); Y93.01 Activity, walking, marching and hiking; Y93.89 Activity, other specified; Y92.828 Other wilderness area as the place of occurrence of the external cause; Y99.8 Other external cause status; I10 Essential (primary) hypertension; I50.9 Heart failure, unspecified; E78.5 Hyperlipidemia, unspecified; Z95.810 Presence of automatic (implantable) cardiac defibrillator; E03.9 Hypothyroidism, unspecified; E11.9 Type 2 diabetes mellitus without complications; Z79.4 Long term (current) use of insulin; F41.8 Other specified anxiety disorders; F32.9 Major depressive disorder, single episode, unspecified
CPT/HCPCS: 36415; 74150-TC; 80053; 83690; 85025; 93005; 93010; 96374; 96375; 99283-25

== ENCOUNTER 2020-03-07 10:26 | Inpatient (IN) | payer OTHER ==
[2020-03-07 11:53] LABS: BASO % 0.1 % (0-2.0); EOS % 0.1 % (0-4.5); HEMATOCRIT 15.3 % (32.4-45.2); LYMPH % 12.4 % (8-40); MCH 29.8 pg (25.7-33.7); MCHC 32.3 g/dl (32.0-36.0); MEAN CELL VOLUME 92.2 fl (80-96); MEAN PLT VOLUME 7.1 fl (7.5-11.1); MONO % 8.2 % (3.8-10.2); NEUT % 79.2 % (42.8-82.8); PLATELET COUNT 305 K/MM3 (134-434); RBC 1.66 M/mm3 (3.60-5.2); RDW 16.1 % (11.6-15.6); WHITE BLOOD COUNT 22.7 K/mm3 (4.0-10.0)
[2020-03-07 11:58] LABS: HEMOGLOBIN 4.9 GM/dL (10.7-15.3)
[2020-03-07 12:01] LABS: CHLORIDE 104 mmol/L (98-107); POTASSIUM 4.6 mmol/L (3.5-5.1); SODIUM 141 mmol/L (136-145)
[2020-03-07 12:03] LABS: ALBUMIN 2.6 g/dl (3.4-5.0); CALCIUM 9.2 mg/dL (8.5-10.1)
[2020-03-07 12:04] LABS: ANION GAP 8 MMOL/L (8-16); CO2 29 mmol/L (21-32); GLUCOSE,RANDOM 260 mg/dL (74-106); MAGNESIUM 2.1 mg/dL (1.8-2.4)
[2020-03-07 12:07] LABS: CREATININE 3.5 mg/dL (0.55-1.3); INR 1.07 (0.83-1.09); PROTHROMBIN TIME (PATIENT) 13.1 SEC (9.7-13.0); SGOT/AST 7 U/L (15-37); SGPT/ALT 42 U/L (13-61)
[2020-03-07 12:08] LABS: BILIRUBIN,TOTAL 0.2 mg/dL (0.2-1); TOT PROT 5.4 g/dl (6.4-8.2)
[2020-03-07 12:09] LABS: ACTIVATED PTT 20.3 SECONDS (25.2-36.5)
[2020-03-07 12:10] LABS: ALK PHOS 95 U/L (45-117)
[2020-03-07 12:12] LABS: N-TERMINAL BNP 2420.6 pg/ml (5-125)
[2020-03-07 12:17] LABS: BLOOD UREA NITROGEN 129.7 mg/dL (7-18)
[2020-03-07 12:29] LABS: EPI CELLS 28 /uL (0-25.1); HYALINE CASTS 3 /uL (0-3.1); URINE APPEARANCE CLOUDY; URINE BACTERIA 1096 /uL (0-1359); URINE BILIRUBIN NEGATIVE (NEGATIVE); URINE COLOR YELLOW; URINE GLUCOSE (UA) 3+ (NEGATIVE); URINE KETONE NEGATIVE (NEGATIVE); URINE LEUK ESTERASE 2+ (NEGATIVE); URINE NITRITE NEGATIVE (NEGATIVE); URINE PROTEIN 1+ (NEGATIVE); URINE RBC 13 /uL (0-23.9); URINE UROBILINOGEN 0.2 mg/dL (0.2-1.0); URINE WBC 465 /uL (0-25.8)
[2020-03-07 15:09] LABS: ANISOCYTOSIS 0; MACROCYTOSIS 0; PLATELET ESTIMATE NORMAL
[2020-03-07 15:23] LABS: YEAST POSITIVE (NEGATIVE)
[2020-03-07] MEDS ORDERED: PANTOPRAZOLE SODIUM 40 MG VIAL IVPUSH ONE (16:21)
[2020-03-07] MEDS ORDERED: PANTOPRAZOLE SODIUM 40 MG VIAL ONE ×2 (16:42→17:29)
[2020-03-07] MEDS ORDERED: CEFTRIAXONE 1 GM/50 ML BAG ONE (17:29)
[2020-03-07] MEDS ORDERED: PANTOPRAZOLE SODIUM 40 MG/100 ML BAG IVPB ONE (17:29)
[2020-03-07] MEDS: CEFTRIAXONE 1 GM in DEXTROSE 5%-WATER - 50 ML IVPB SCH (17:46)
[2020-03-07] MEDS: PANTOPRAZOLE SODIUM 80 MG in SODIUM CHLORIDE 100 ML IVPB SCH (17:46)
[2020-03-07] MEDS: INSULIN SLIDING SCALE (NOVOLOG) 1 VIAL SQ SCH (18:26)
[2020-03-07 23:04] LABS: HEMATOCRIT 23.8 % (32.4-45.2); HEMOGLOBIN 7.8 GM/dL (10.7-15.3); MCH 29.8 pg (25.7-33.7); MCHC 32.7 g/dl (32.0-36.0); MEAN CELL VOLUME 91.1 fl (80-96); MEAN PLT VOLUME 7.6 fl (7.5-11.1); PLATELET COUNT 247 K/MM3 (134-434); RBC 2.62 M/mm3 (3.60-5.2); RDW 16.4 % (11.6-15.6); WHITE BLOOD COUNT 15.9 K/mm3 (4.0-10.0)
[2020-03-08] MEDS: INSULIN SLIDING SCALE (NOVOLOG) 1 VIAL SQ SCH ×5 (00:20→23:03)
[2020-03-08 01:28] VITALS: BMI 38.6
[2020-03-08] MEDS ORDERED: PIPERACILLIN/TAZOBACTAM 3.375 GM VIAL IVPB ONE ×2 (01:33→09:10)
[2020-03-08] MEDS ORDERED: DEXTROSE 5%-WATER - 50 ML IVPB ONE ×3 (01:34→09:10)
[2020-03-08] MEDS: PIPERACILLIN/TAZOB 3.375 GM 3.375 GM in DEXTROSE 5%-WATER - 50 ML IVPB SCH ×2 (01:58→09:34)
[2020-03-08] MEDS: PANTOPRAZOLE SODIUM 80 MG in SODIUM CHLORIDE 100 ML IVPB SCH ×4 (01:58→23:45)
[2020-03-08 07:58] LABS: HEMATOCRIT 28.4 % (32.4-45.2); HEMOGLOBIN 9.5 GM/dL (10.7-15.3); MCH 29.9 pg (25.7-33.7); MCHC 33.5 g/dl (32.0-36.0); MEAN CELL VOLUME 89.2 fl (80-96); MEAN PLT VOLUME 7.4 fl (7.5-11.1); PLATELET COUNT 256 K/MM3 (134-434); RBC 3.18 M/mm3 (3.60-5.2); RDW 16.7 % (11.6-15.6)
[2020-03-08 08:16] LABS: POTASSIUM 5.7 mmol/L (3.5-5.1)
[2020-03-08 08:52] LABS: CALCIUM 9.1 mg/dL (8.5-10.1)
[2020-03-08 08:53] LABS: ALBUMIN 2.8 g/dl (3.4-5.0); MAGNESIUM 2.2 mg/dL (1.8-2.4)
[2020-03-08 08:56] LABS: CREATININE 3.3 mg/dL (0.55-1.3); PHOSPHOROUS 3.9 mg/dL (2.5-4.9)
[2020-03-08 08:57] LABS: BILIRUBIN,TOTAL 0.6 mg/dL (0.2-1)
[2020-03-08 09:02] LABS: BLOOD UREA NITROGEN 103.4 mg/dL (7-18)
[2020-03-08] MEDS ORDERED: cefTRIAXone SODIUM 1 GM VIAL ONE (09:09)
[2020-03-08] MEDS ORDERED: PNEUMOC 13-VAL CONJ-DIP CRM/PF 0.5 ML DISP.SYRIN IM ONE (10:00)
[2020-03-08] MEDS ORDERED: PNEUMOCOCCAL 23 VACCINE 0.5 ML VIAL IM ONE (10:00)
[2020-03-08] MEDS ORDERED: FLU VACCINE (FLULAVAL) PF 60 MCG/0.5 ML SYRINGE 2020-2021 IM ONE (10:00)
[2020-03-08 10:08] LABS: INR 1.03 (0.83-1.09); PROTHROMBIN TIME (PATIENT) 12.5 SEC (9.7-13.0)
[2020-03-08 10:11] LABS: ACTIVATED PTT 22.5 SECONDS (25.2-36.5)
[2020-03-08] MEDS: CEFTRIAXONE 1 GM in DEXTROSE 5%-WATER - 50 ML IVPB SCH (11:31)
[2020-03-08] MEDS ORDERED: FUROSEMIDE 40 MG/4 ML INJECTABLE VIAL IVPUSH ONE (13:23)
[2020-03-08] MEDS ORDERED: INSULIN (NOVOLOG) ASPART 100 UNITS/ML 10ML VIAL SQ ONE (13:40)
[2020-03-08] MEDS: LEVOTHYROXINE SODIUM 100 MCG VIAL IVPUSH SCH (15:11)
[2020-03-08] MEDS ORDERED: INSULIN (NOVOLOG) ASPART 100 UNITS/ML 10ML VIAL ONE (18:25)
[2020-03-08 18:43] LABS: POTASSIUM 5.3 mmol/L (3.5-5.1)
[2020-03-08 18:45] LABS: BLOOD UREA NITROGEN 95.5 mg/dL (7-18); CALCIUM 8.9 mg/dL (8.5-10.1)
[2020-03-08 18:49] LABS: CREATININE 3.7 mg/dL (0.55-1.3)
[2020-03-08] MEDS ORDERED: INSULIN (LEVEMIR) 100 UNITS/ML UNITS SQ SCH (22:00)
[2020-03-09] MEDS: PIPERACILLIN/TAZOB 3.375 GM 3.375 GM in DEXTROSE 5%-WATER - 50 ML IVPB SCH (00:51)
[2020-03-09] MEDS: INSULIN SLIDING SCALE (NOVOLOG) 1 VIAL SQ SCH ×3 (05:40→17:54)
[2020-03-09 07:03] LABS: BASO % 0.1 % (0-2.0); EOS % 2.4 % (0-4.5); HEMATOCRIT 33.5 % (32.4-45.2); LYMPH % 6.8 % (8-40); MCHC 32.8 g/dl (32.0-36.0); MEAN CELL VOLUME 91.5 fl (80-96); MEAN PLT VOLUME 7.6 fl (7.5-11.1); MONO % 4.4 % (3.8-10.2); NEUT % 86.3 % (42.8-82.8); PLATELET COUNT 307 K/MM3 (134-434); RBC 3.66 M/mm3 (3.60-5.2); RDW 17.4 % (11.6-15.6); WHITE BLOOD COUNT 14.6 K/mm3 (4.0-10.0)
[2020-03-09 07:28] LABS: POTASSIUM 5.6 mmol/L (3.5-5.1)
[2020-03-09 07:32] LABS: CALCIUM 9.2 mg/dL (8.5-10.1)
[2020-03-09 07:33] LABS: BLOOD UREA NITROGEN 88.9 mg/dL (7-18); MAGNESIUM 2.3 mg/dL (1.8-2.4)
[2020-03-09 07:36] LABS: CREATININE 3.5 mg/dL (0.55-1.3); PHOSPHOROUS 5.8 mg/dL (2.5-4.9)
[2020-03-09 09:24] LABS: ANISOCYTOSIS 0; MACROCYTOSIS 0; PLATELET ESTIMATE NORMAL
[2020-03-09] MEDS ORDERED: FUROSEMIDE 40 MG/4 ML INJECTABLE VIAL IVPUSH ONE (09:27)
[2020-03-09] MEDS ORDERED: CARVEDILOL 25 MG TABLET (FP) PO SCH (10:00)
[2020-03-09] MEDS ORDERED: cefTRIAXone SODIUM 1 GM VIAL ONE (10:21)
[2020-03-09] MEDS ORDERED: DEXTROSE 5%-WATER - 50 ML IVPB ONE (10:22)
[2020-03-09] MEDS ORDERED: PT OWN MED DRAWER 7, Y5N ONE (10:22)
[2020-03-09] MEDS: CEFTRIAXONE 1 GM in DEXTROSE 5%-WATER - 50 ML IVPB SCH (10:36)
[2020-03-09] MEDS: LEVOTHYROXINE SODIUM 100 MCG VIAL IVPUSH SCH (10:37)
[2020-03-09] MEDS: CARVEDILOL 25 MG TABLET (FP) PO SCH ×2 (10:38→22:25)
[2020-03-09] MEDS: PANTOPRAZOLE SODIUM 80 MG in SODIUM CHLORIDE 100 ML IVPB SCH (12:32)
[2020-03-09] MEDS ORDERED: POLYETHYLENE GLYCOL 3350 119 GM BTL PO ONE (13:22)
[2020-03-09] MEDS ORDERED: BISACODYL 5 MG TABLET.DR (FP) PO ONE (14:11)
[2020-03-09] MEDS ORDERED: POLYETHYLENE GLYCOL 3350 255 GM BTL PO ONE (14:30)
[2020-03-09 18:31] LABS: POTASSIUM 4.3 mmol/L (3.5-5.1)
[2020-03-09 18:32] LABS: CALCIUM 7.8 mg/dL (8.5-10.1)
[2020-03-09 18:33] LABS: BLOOD UREA NITROGEN 77.7 mg/dL (7-18)
[2020-03-09 18:36] LABS: CREATININE 3.7 mg/dL (0.55-1.3)
[2020-03-09] MEDS: INSULIN (LEVEMIR) 100 UNITS/ML UNITS SQ SCH (22:25)
[2020-03-09] MEDS: ATORVASTATIN CA 10 MG TABLET (FP) PO SCH (22:25)
[2020-03-09] MEDS: PANTOPRAZOLE 40 MG TABLET PO SCH (22:25)
[2020-03-10] MEDS: INSULIN SLIDING SCALE (NOVOLOG) 1 VIAL SQ SCH ×5 (01:46→23:05)
[2020-03-10] MEDS ORDERED: MINERAL OIL ENEMA 133 ML ENEMA PR ONE (04:00)
[2020-03-10] MEDS: LEVOTHYROXINE NA 88 MCG TABLET (FP) PO SCH (06:42)
[2020-03-10 10:07] LABS: HEMATOCRIT 30.1 % (32.4-45.2); HEMOGLOBIN 9.8 GM/dL (10.7-15.3); MCH 29.8 pg (25.7-33.7); MCHC 32.5 g/dl (32.0-36.0); MEAN CELL VOLUME 91.5 fl (80-96); MEAN PLT VOLUME 7.8 fl (7.5-11.1); PLATELET COUNT 249 K/MM3 (134-434); RBC 3.29 M/mm3 (3.60-5.2); RDW 17.4 % (11.6-15.6); WHITE BLOOD COUNT 12.9 K/mm3 (4.0-10.0)
[2020-03-10 10:23] LABS: POTASSIUM 3.9 mmol/L (3.5-5.1)
[2020-03-10 10:25] LABS: ALBUMIN 2.8 g/dl (3.4-5.0)
[2020-03-10 10:26] LABS: BLOOD UREA NITROGEN 68.3 mg/dL (7-18); MAGNESIUM 2.1 mg/dL (1.8-2.4)
[2020-03-10 10:29] LABS: CREATININE 3.5 mg/dL (0.55-1.3); PHOSPHOROUS 4.8 mg/dL (2.5-4.9)
[2020-03-10 10:30] LABS: BILIRUBIN,TOTAL 0.3 mg/dL (0.2-1)
[2020-03-10] MEDS: ISOSORBIDE MONONITRATE 30 MG TAB.SR.24H (FP) PO SCH (11:24)
[2020-03-10] MEDS: PANTOPRAZOLE 40 MG TABLET PO SCH ×2 (11:24→21:01)
[2020-03-10] MEDS: CARVEDILOL 25 MG TABLET (FP) PO SCH ×2 (11:24→21:00)
[2020-03-10] MEDS: ACETAMINOPHEN 325 MG TABLET (FP) PO PRN (17:00)
[2020-03-10] MEDS ORDERED: cefTRIAXone SODIUM 1 GM VIAL ONE (20:17)
[2020-03-10] MEDS ORDERED: DEXTROSE 5%-WATER - 50 ML IVPB ONE (20:17)
[2020-03-10] MEDS ORDERED: INSULIN (NOVOLOG) ASPART 100 UNITS/ML 10ML VIAL ONE (20:17)
[2020-03-10] MEDS: CEFTRIAXONE 1 GM in DEXTROSE 5%-WATER - 50 ML IVPB SCH (20:50)
[2020-03-10] MEDS: INSULIN (LEVEMIR) 100 UNITS/ML UNITS SQ SCH (21:01)
[2020-03-10] MEDS: ATORVASTATIN CA 10 MG TABLET (FP) PO SCH (21:01)
[2020-03-11] MEDS: INSULIN SLIDING SCALE (NOVOLOG) 1 VIAL SQ SCH ×4 (06:05→23:18)
[2020-03-11] MEDS: LEVOTHYROXINE NA 88 MCG TABLET (FP) PO SCH (06:05)
[2020-03-11 08:32] LABS: HEMATOCRIT 27.5 % (32.4-45.2); HEMOGLOBIN 8.9 GM/dL (10.7-15.3); MCH 29.8 pg (25.7-33.7); MCHC 32.5 g/dl (32.0-36.0); MEAN CELL VOLUME 91.7 fl (80-96); MEAN PLT VOLUME 7.7 fl (7.5-11.1); PLATELET COUNT 233 K/MM3 (134-434); RDW 17.5 % (11.6-15.6); WHITE BLOOD COUNT 11.8 K/mm3 (4.0-10.0)
[2020-03-11 08:56] LABS: POTASSIUM 3.9 mmol/L (3.5-5.1)
[2020-03-11 08:59] LABS: BLOOD UREA NITROGEN 54.2 mg/dL (7-18)
[2020-03-11 09:03] LABS: CREATININE 3.2 mg/dL (0.55-1.3); PHOSPHOROUS 5.1 mg/dL (2.5-4.9)
[2020-03-11] MEDS ORDERED: DEXTROSE 5%-WATER - 50 ML IVPB ONE (09:29)
[2020-03-11] MEDS ORDERED: cefTRIAXone SODIUM 1 GM VIAL ONE (09:29)
[2020-03-11] MEDS: ACETAMINOPHEN 325 MG TABLET (FP) PO PRN ×2 (09:46→18:40)
[2020-03-11] MEDS: ISOSORBIDE MONONITRATE 30 MG TAB.SR.24H (FP) PO SCH (09:47)
[2020-03-11] MEDS: CARVEDILOL 25 MG TABLET (FP) PO SCH ×2 (09:47→21:12)
[2020-03-11] MEDS: CEFTRIAXONE 1 GM in DEXTROSE 5%-WATER - 50 ML IVPB SCH (09:47)
[2020-03-11] MEDS: PANTOPRAZOLE 40 MG TABLET PO SCH ×2 (09:47→21:17)
[2020-03-11] MEDS: ASPIRIN 81 MG CHEWABLE TABLETS PO SCH (09:47)
[2020-03-11] MEDS ORDERED: INSULIN (NOVOLOG) ASPART 100 UNITS/ML 10ML VIAL ONE (13:10)
[2020-03-11] MEDS: Insulin (LOG) Aspart 100 UNITS/ML VIAL SQ SCH (13:26)
[2020-03-11] MEDS ORDERED: Insulin (LOG) Aspart 100 UNITS/ML VIAL SQ SCH (16:30)
[2020-03-11] MEDS: MINERAL OIL/PET HY-PHL TOPICAL OINTMENT 454 GM JAR TP SCH (17:25)
[2020-03-11] MEDS: ATORVASTATIN CA 10 MG TABLET (FP) PO SCH (21:12)
[2020-03-11] MEDS: INSULIN (LEVEMIR) 100 UNITS/ML UNITS SQ SCH (21:13)
[2020-03-12] MEDS: LEVOTHYROXINE NA 88 MCG TABLET (FP) PO SCH (06:20)
[2020-03-12] MEDS: Insulin (LOG) Aspart 100 UNITS/ML VIAL SQ SCH (06:21)
[2020-03-12] MEDS: INSULIN SLIDING SCALE (NOVOLOG) 1 VIAL SQ SCH ×2 (06:22→11:28)
[2020-03-12 07:38] LABS: BASO % 1.2 % (0-2.0); EOS % 3.3 % (0-4.5); HEMATOCRIT 27.6 % (32.4-45.2); HEMOGLOBIN 9.1 GM/dL (10.7-15.3); LYMPH % 6.5 % (8-40); MCH 30.2 pg (25.7-33.7); MEAN CELL VOLUME 91.3 fl (80-96); MONO % 7.3 % (3.8-10.2); NEUT % 81.7 % (42.8-82.8); PLATELET COUNT 205 K/MM3 (134-434); RBC 3.02 M/mm3 (3.60-5.2); RDW 17.4 % (11.6-15.6); WHITE BLOOD COUNT 8.1 K/mm3 (4.0-10.0)
[2020-03-12 07:46] LABS: POTASSIUM 3.7 mmol/L (3.5-5.1)
[2020-03-12 08:06] LABS: BLOOD UREA NITROGEN 42.6 mg/dL (7-18)
[2020-03-12 08:07] LABS: CALCIUM 8.6 mg/dL (8.5-10.1)
[2020-03-12 08:09] LABS: CREATININE 2.8 mg/dL (0.55-1.3)
[2020-03-12] MEDS ORDERED: DEXTROSE 5%-WATER - 50 ML IVPB ONE (09:16)
[2020-03-12] MEDS ORDERED: cefTRIAXone SODIUM 1 GM VIAL ONE (09:16)
[2020-03-12] MEDS: PANTOPRAZOLE 40 MG TABLET PO SCH (09:23)
[2020-03-12] MEDS: CEFTRIAXONE 1 GM in DEXTROSE 5%-WATER - 50 ML IVPB SCH (09:23)
[2020-03-12] MEDS: ISOSORBIDE MONONITRATE 30 MG TAB.SR.24H (FP) PO SCH (09:23)
[2020-03-12] MEDS: ASPIRIN 81 MG CHEWABLE TABLETS PO SCH (09:23)
[2020-03-12] MEDS: CARVEDILOL 25 MG TABLET (FP) PO SCH (09:23)
[2020-03-12] MEDS: MINERAL OIL/PET HY-PHL TOPICAL OINTMENT 454 GM JAR TP SCH (09:24)
[2020-03-12] MEDS ORDERED: ALBUTEROL SO4 HFA INHALER IH PRN (13:46)
[2020-03-12 15:02] VITALS: BP 118/61; PULSE 102; TEMP 98.8
[2020-03-12] MEDS ORDERED: FUROSEMIDE 40 MG TABLET (FP) PO SCH (17:45)
== END 2020-03-12 18:00 | disposition home health service (06) | DRG 253 ==
LOC: JER 10:26 → JERBED 17:43 → J7W 03-08 00:08
PROVIDERS: ADMIT Internal Medicine; ATTEND Internal Medicine
PROC: 30233N1 Transfusion of Nonautologous Red Blood Cells into Peripheral Vein, Percutaneous Approach (ICD-10-PCS; 2020-03-07)
PROC: 0DB78ZX Excision of Stomach, Pylorus, Via Natural or Artificial Opening Endoscopic, Diagnostic (ICD-10-PCS; 2020-03-09)
PROC: 0DB48ZX Excision of Esophagogastric Junction, Via Natural or Artificial Opening Endoscopic, Diagnostic (ICD-10-PCS; principal; 2020-03-09 07:30)
PROC: 0DBC8ZX Excision of Ileocecal Valve, Via Natural or Artificial Opening Endoscopic, Diagnostic (ICD-10-PCS; 2020-03-10)
PROC: 0DBL8ZX Excision of Transverse Colon, Via Natural or Artificial Opening Endoscopic, Diagnostic (ICD-10-PCS; 2020-03-10)
DX: K92.2 Gastrointestinal hemorrhage, unspecified (principal); E11.65 Type 2 diabetes mellitus with hyperglycemia; E03.9 Hypothyroidism, unspecified; I25.10 Atherosclerotic heart disease of native coronary artery without angina pectoris; D50.0 Iron deficiency anemia secondary to blood loss (chronic); D72.829 Elevated white blood cell count, unspecified; E87.5 Hyperkalemia; E78.00 Pure hypercholesterolemia, unspecified; D63.1 Anemia in chronic kidney disease; I50.22 Chronic systolic (congestive) heart failure; I13.0 Hypertensive heart and chronic kidney disease with heart failure and stage 1 through stage 4 chronic kidney disease, or unspecified chronic kidney disease; N18.4 Chronic kidney disease, stage 4 (severe); E11.22 Type 2 diabetes mellitus with diabetic chronic kidney disease; N17.9 Acute kidney failure, unspecified; I42.0 Dilated cardiomyopathy; I47.2 Ventricular tachycardia; Z68.38 Body mass index [BMI] 38.0-38.9, adult; E78.5 Hyperlipidemia, unspecified; R07.9 Chest pain, unspecified; N39.0 Urinary tract infection, site not specified; E66.01 Morbid (severe) obesity due to excess calories; K21.9 Gastro-esophageal reflux disease without esophagitis; K20.90 Esophagitis, unspecified without bleeding; K63.5 Polyp of colon
CPT/HCPCS: 36415; 36430; 36511; 70450-TC; 71045-TC-FY; 72125-TC; 74176-TC; 80048; 80053; 81003; 82010; 82272; 82565; 82962; 83735; 83880; 84100; 84156; 84300; 84484; 84540; 85025; 85027; 85610; 85730; 86850; 86900; 86901; 86922; 87040; 87086; 87205; 87804; 88305-TC; 90732; 93005; 93010; 93306-TC; 97116-GP; 97161-GP; 99285-25; C9803; G0009; P9038; P9058; U0003

== ENCOUNTER 2020-03-28 14:14 | Emergency (ER) | payer OTHER ==
[2020-03-28 14:35] VITALS: BP 101/59; PULSE 85; TEMP 97.6; BMI 34.4
== END 2020-03-28 16:30 | disposition home or self-care (01) ==
LOC: JER 14:14
DX: F45.8 Other somatoform disorders (principal)
CPT/HCPCS: 70360-TC-FY; 99284-25; C9803; U0003

== ENCOUNTER 2020-07-13 04:23 | Day surgery (SDC) | payer OTHER ==
[2020-07-12 10:42] VITALS: BMI 37.0
[2020-07-13] MEDS ORDERED: HEPARIN NA (PORCINE) 5,000 UNITS/ML 1ML VIAL ONE (08:59)
[2020-07-13] MEDS ORDERED: PAPAVERINE HCL 30 MG/1 ML 10 ML VIAL NR ONE (08:59)
[2020-07-13] MEDS ORDERED: LIDOCAINE HCL 1%, 10 MG/ML (20ML VIAL) ONE ×2 (08:59→09:00)
[2020-07-13] MEDS ORDERED: POVIDONE-IODINE OINTMENT 10% - 28.4 GM TUBE ONE (09:07)
[2020-07-13] MEDS ORDERED: ceFAZolin SODIUM 1 GM VIAL IVPB ONE (09:30)
[2020-07-13] MEDS ORDERED: MIDAZOLAM HCL 2 MG/2 ML SINGLE DOSE VIAL ONE (09:33)
[2020-07-13] MEDS ORDERED: ceFAZolin SODIUM 1 GM VIAL ONE (09:41)
[2020-07-13] MEDS ORDERED: LIDOCAINE HCL 1%, 10 MG/ML (50 mL VIAL) PNB ONE (09:45)
[2020-07-13] MEDS ORDERED: PROPOFOL 20 ML ONE ×3 (09:58)
[2020-07-13] MEDS ORDERED: ACETAMINOPHEN 1000 MG/100 ML VIAL (NON FORMULARY) IVPB PRN (10:59)
[2020-07-13] MEDS ORDERED: ACETAMINOPHEN INJECTION 100 ML IVPB ONE (11:54)
[2020-07-13] MEDS ORDERED: ACETAMINOPHEN 1000 MG/100 ML VIAL (NON FORMULARY) IVPB ONE (12:01)
[2020-07-13 13:00] VITALS: BP 100/77; PULSE 82; TEMP 97.8
== END 2020-07-13 13:19 | disposition home or self-care (01) ==
LOC: JASU-SURG 04:23
PROVIDERS: ATTEND Surgery
PROC: 03170ZD Bypass Right Brachial Artery to Upper Arm Vein, Open Approach (ICD-10-PCS; principal; 2020-07-13 09:00)
DX: I12.0 Hypertensive chronic kidney disease with stage 5 chronic kidney disease or end stage renal disease (principal); N18.6 End stage renal disease; Z99.2 Dependence on renal dialysis
CPT/HCPCS: 82962; 94760; J0131; J1644

== ENCOUNTER 2020-08-02 15:07 | Inpatient (IN) | payer OTHER ==
[2020-08-02] MEDS ORDERED: ALBUTEROL SO4 2.5/IPRATROPIUM 0.5 INH SOL 3 ML VIAL.NEB. NEB ONE (15:25)
[2020-08-02] MEDS ORDERED: methylPREDNISolone NA SUCC 125 MG/2 ML VIAL IVPB ONE (15:31)
[2020-08-02] MEDS ORDERED: methylPREDNISolone NA SUCC 125 MG/2 ML VIAL ONE (15:41)
[2020-08-02 16:21] LABS: BASO % 0.6 % (0-2.0); EOS % 1.4 % (0-4.5); HEMATOCRIT 28.4 % (32.4-45.2); HEMOGLOBIN 9.4 GM/dL (10.7-15.3); LYMPH % 7.2 % (8-40); MCH 31.3 pg (25.7-33.7); MCHC 33.2 g/dl (32.0-36.0); MEAN CELL VOLUME 94.3 fl (80-96); MEAN PLT VOLUME 6.8 fl (7.5-11.1); NEUT % 81.8 % (42.8-82.8); PLATELET COUNT 350 10^3/uL (134-434); RBC 3.01 M/mm3 (3.60-5.2); RDW 17.9 % (11.6-15.6); WHITE BLOOD COUNT 10.1 K/mm3 (4.0-10.0)
[2020-08-02 16:41] LABS: CHLORIDE 100 mmol/L (98-107); SODIUM 138 mmol/L (136-145)
[2020-08-02 16:43] LABS: ALBUMIN 3.9 g/dl (3.4-5.0); ANION GAP 6 MMOL/L (8-16); BLOOD UREA NITROGEN 68.7 mg/dL (7-18); CALCIUM 9.8 mg/dL (8.5-10.1); CO2 31 mmol/L (21-32); GLUCOSE,RANDOM 113 mg/dL (74-106)
[2020-08-02 16:46] LABS: CREATININE 3.9 mg/dL (0.55-1.3); SGOT/AST 47 U/L (15-37); SGPT/ALT 82 U/L (13-61)
[2020-08-02 16:48] LABS: BILIRUBIN,TOTAL 0.4 mg/dL (0.2-1); TOT PROT 8.1 g/dl (6.4-8.2)
[2020-08-02 16:49] LABS: ALK PHOS 192 U/L (45-117)
[2020-08-02] MEDS ORDERED: ALBUTEROL SO4 HFA INHALER IH PRN (18:11)
[2020-08-02] MEDS ORDERED: ALBUTEROL SO4 0.083% IH SOL 2.5 MG/3 ML VIAL.NEB. NEB PRN (18:11)
[2020-08-02] MEDS ORDERED: AZITHROMYCIN IVPB 500 MG/250 ML BAG IVPB ONE ×2 (18:29→19:13)
[2020-08-02] MEDS ORDERED: MAGNESIUM SULF 50% (8.12 MEQ/2 ML-1 GM VIAL) IVPB ONE (18:30)
[2020-08-02] MEDS ORDERED: SODIUM ZIRCONIUM CYCLOSILICATE (LOKELMA) 5 GM PACKET PO ONE (18:30)
[2020-08-02] MEDS ORDERED: FUROSEMIDE 40 MG/4 ML INJECTABLE VIAL IVPUSH ONE (18:31)
[2020-08-02 19:13] LABS: N-TERMINAL BNP 3452.2 pg/ml (5-125)
[2020-08-02] MEDS ORDERED: SODIUM ZIRCONIUM CYCLOSILICATE (LOKELMA) 5 GM PACKET ONE (19:13)
[2020-08-02] MEDS ORDERED: CEFTRIAXONE 1 GM/50 ML BAG ONE (19:13)
[2020-08-02] MEDS ORDERED: MAGNESIUM SULFATE IN WATER 2 GM/50 ML IVPB IVPB ONE (19:13)
[2020-08-02] MEDS ORDERED: FUROSEMIDE 40 MG/4 ML INJECTABLE VIAL ONE (19:13)
[2020-08-02] MEDS: CEFTRIAXONE 1 GM in DEXTROSE 5%-WATER - 50 ML IVPB SCH (19:37)
[2020-08-02 19:57] LABS: INR 0.98 (0.83-1.09); PROTHROMBIN TIME (PATIENT) 12.1 SEC (9.7-13.0)
[2020-08-02 19:59] LABS: ACTIVATED PTT 33.1 SECONDS (25.2-36.5)
[2020-08-02 22:51] LABS: EPI CELLS 4 /uL (0-25.1); HYALINE CASTS 0 /uL (0-3.1); URINE APPEARANCE CLEAR; URINE BACTERIA 24 /uL (0-1359); URINE BILIRUBIN NEGATIVE (NEGATIVE); URINE COLOR YELLOW; URINE GLUCOSE (UA) 2+ (NEGATIVE); URINE KETONE NEGATIVE (NEGATIVE); URINE LEUK ESTERASE NEGATIVE (NEGATIVE); URINE NITRITE NEGATIVE (NEGATIVE); URINE PROTEIN 1+ (NEGATIVE); URINE RBC 4 /uL (0-23.9); URINE UROBILINOGEN 0.2 mg/dL (0.2-1.0); URINE WBC 18 /uL (0-25.8)
[2020-08-02] MEDS: INSULIN SLIDING SCALE (NOVOLOG) 1 VIAL SQ SCH (22:52)
[2020-08-03] MEDS ORDERED: methylPREDNISolone NA SUCC 40 MG/1 ML VIAL IVPUSH SCH ×2 (02:00→15:00)
[2020-08-03 04:38] VITALS: BMI 34.6
[2020-08-03] MEDS: INSULIN SLIDING SCALE (NOVOLOG) 1 VIAL SQ SCH ×4 (06:41→21:42)
[2020-08-03] MEDS: HEPARIN NA (PORCINE) 5,000 UNITS/ML 1ML VIAL SQ SCH ×3 (06:41→21:40)
[2020-08-03 07:19] LABS: BASO % 0.2 % (0-2.0); HEMATOCRIT 30.8 % (32.4-45.2); LYMPH % 5.2 % (8-40); MCH 30.8 pg (25.7-33.7); MCHC 32.4 g/dl (32.0-36.0); MEAN CELL VOLUME 95.1 fl (80-96); MONO % 1.1 % (3.8-10.2); NEUT % 93.5 % (42.8-82.8); PLATELET COUNT 316 10^3/uL (134-434); RBC 3.24 M/mm3 (3.60-5.2); RDW 17.4 % (11.6-15.6); WHITE BLOOD COUNT 8.2 K/mm3 (4.0-10.0)
[2020-08-03 07:37] LABS: CHLORIDE 98 mmol/L (98-107); SODIUM 136 mmol/L (136-145)
[2020-08-03 07:39] LABS: CALCIUM 9.3 mg/dL (8.5-10.1)
[2020-08-03 07:40] LABS: ALBUMIN 3.7 g/dl (3.4-5.0); ANION GAP 11 MMOL/L (8-16); BLOOD UREA NITROGEN 67.7 mg/dL (7-18); CO2 27 mmol/L (21-32); GLUCOSE,RANDOM 276 mg/dL (74-106); MAGNESIUM 3.4 mg/dL (1.8-2.4)
[2020-08-03 07:43] LABS: CREATININE 3.9 mg/dL (0.55-1.3); PHOSPHOROUS 4.6 mg/dL (2.5-4.9); SGOT/AST 29 U/L (15-37); SGPT/ALT 67 U/L (13-61)
[2020-08-03 07:45] LABS: BILIRUBIN,TOTAL 0.5 mg/dL (0.2-1); TOT PROT 8.4 g/dl (6.4-8.2)
[2020-08-03 07:46] LABS: ALK PHOS 184 U/L (45-117)
[2020-08-03 09:12] LABS: ANISOCYTOSIS 1+; MACROCYTOSIS 2+; PLATELET ESTIMATE NORMAL
[2020-08-03] MEDS ORDERED: PT OWN MED DRAWER 7, Y5N ONE (09:15)
[2020-08-03] MEDS ORDERED: cefTRIAXone SODIUM 1 GM VIAL ONE (09:15)
[2020-08-03] MEDS ORDERED: DEXTROSE 5%-WATER - 50 ML IVPB ONE (09:15)
[2020-08-03] MEDS: CEFTRIAXONE 1 GM in DEXTROSE 5%-WATER - 50 ML IVPB SCH (09:52)
[2020-08-03] MEDS ORDERED: AZITHROMYCIN IVPB 250 MG in DEXTROSE 5%-WATER - 250 ML IVPB SCH (10:00)
[2020-08-03] MEDS ORDERED: FUROSEMIDE 40 MG/4 ML INJECTABLE VIAL IVPUSH SCH (10:00)
[2020-08-03] MEDS ORDERED: LISINOPRIL 20 MG TABLET PO SCH (13:30)
[2020-08-03] MEDS ORDERED: AZITHROMYCIN IVPB 250 MG in SODIUM CHLORIDE 250 ML IVPB SCH (14:02)
[2020-08-03] MEDS ORDERED: CEFTRIAXONE 1 GM in SODIUM CHLORIDE 50 ML IVPB SCH (14:04)
[2020-08-03] MEDS: CITALOPRAM HYDROBROMIDE 20 MG TABLET PO SCH (14:24)
[2020-08-03] MEDS: LEVOTHYROXINE NA 88 MCG TABLET (FP) PO SCH (14:24)
[2020-08-03] MEDS ORDERED: INSULIN (LEVEMIR) 100 UNITS/ML UNITS SQ ONE (15:42)
[2020-08-03 16:10] LABS: CHLORIDE 94 mmol/L (98-107); SODIUM 132 mmol/L (136-145)
[2020-08-03 16:11] LABS: CALCIUM 8.6 mg/dL (8.5-10.1)
[2020-08-03 16:12] LABS: ANION GAP 10 MMOL/L (8-16); BLOOD UREA NITROGEN 74.2 mg/dL (7-18); CO2 28 mmol/L (21-32)
[2020-08-03 16:15] LABS: CREATININE 3.7 mg/dL (0.55-1.3)
[2020-08-03 16:20] LABS: GLUCOSE,RANDOM 591 mg/dL (74-106)
[2020-08-03] MEDS: CARVEDILOL 25 MG TABLET (FP) PO SCH (21:40)
[2020-08-03] MEDS: CYCLOBENZAPRINE HCL 10 MG TABLET (FP) PO SCH (21:40)
[2020-08-03] MEDS: INSULIN (LEVEMIR) 100 UNITS/ML UNITS SQ SCH (21:41)
[2020-08-03] MEDS: ATORVASTATIN CA 10 MG TABLET (FP) PO SCH (21:42)
[2020-08-03] MEDS: ACETAMINOPHEN 325 MG TABLET (FP) PO PRN (21:43)
[2020-08-03] MEDS: NORTRIPTYLINE HCL 25 MG CAPSULE PO SCH (21:43)
[2020-08-03] MEDS: MONTELUKAST NA 10 MG TABLET PO SCH (21:43)
[2020-08-04] MEDS ORDERED: INSULIN (NOVOLOG) ASPART 100 UNITS/ML 10ML VIAL SQ ONE (00:02)
[2020-08-04] MEDS: INSULIN SLIDING SCALE (NOVOLOG) 1 VIAL SQ SCH ×4 (06:04→23:02)
[2020-08-04] MEDS: HEPARIN NA (PORCINE) 5,000 UNITS/ML 1ML VIAL SQ SCH ×3 (06:12→22:54)
[2020-08-04] MEDS: LEVOTHYROXINE NA 88 MCG TABLET (FP) PO SCH (06:13)
[2020-08-04] MEDS: INSULIN (LEVEMIR) 100 UNITS/ML UNITS SQ SCH ×2 (06:53→22:53)
[2020-08-04 08:01] LABS: BASO % 0.3 % (0-2.0); HEMATOCRIT 28.6 % (32.4-45.2); HEMOGLOBIN 9.4 GM/dL (10.7-15.3); LYMPH % 5.1 % (8-40); MCH 30.8 pg (25.7-33.7); MCHC 32.8 g/dl (32.0-36.0); MEAN CELL VOLUME 94.1 fl (80-96); MEAN PLT VOLUME 6.8 fl (7.5-11.1); MONO % 9.5 % (3.8-10.2); NEUT % 85.1 % (42.8-82.8); PLATELET COUNT 327 10^3/uL (134-434); RBC 3.03 M/mm3 (3.60-5.2); RDW 17.6 % (11.6-15.6); WHITE BLOOD COUNT 10.5 K/mm3 (4.0-10.0)
[2020-08-04 08:31] LABS: ALBUMIN 3.5 g/dl (3.4-5.0); CALCIUM 9.1 mg/dL (8.5-10.1); MAGNESIUM 3.3 mg/dL (1.8-2.4)
[2020-08-04 08:34] LABS: CREATININE 3.8 mg/dL (0.55-1.3); PHOSPHOROUS 5.3 mg/dL (2.5-4.9)
[2020-08-04 08:35] LABS: BILIRUBIN,TOTAL 0.3 mg/dL (0.2-1)
[2020-08-04 08:36] LABS: TOT PROT 7.8 g/dl (6.4-8.2)
[2020-08-04] MEDS: NORTRIPTYLINE HCL 25 MG CAPSULE PO SCH ×2 (10:46→22:51)
[2020-08-04] MEDS: ISOSORBIDE MONONITRATE 30 MG TAB.SR.24H (FP) PO SCH (10:46)
[2020-08-04] MEDS: CITALOPRAM HYDROBROMIDE 20 MG TABLET PO SCH (10:47)
[2020-08-04] MEDS: CARVEDILOL 25 MG TABLET (FP) PO SCH ×2 (10:47→22:50)
[2020-08-04] MEDS: MULTIVITAMINS (DAILY MVI) TABLET (FP) PO SCH (10:47)
[2020-08-04] MEDS: ASPIRIN 81 MG CHEWABLE TABLETS PO SCH (10:49)
[2020-08-04] MEDS ORDERED: INSULIN (LEVEMIR) 100 UNITS/ML UNITS SQ ONE (11:07)
[2020-08-04] MEDS: FUROSEMIDE 40 MG/4 ML INJECTABLE VIAL IVPUSH SCH ×2 (12:30→16:48)
[2020-08-04] MEDS ORDERED: INSULIN (NOVOLOG) ASPART 100 UNITS/ML 10ML VIAL ONE (12:36)
[2020-08-04] MEDS: ATORVASTATIN CA 10 MG TABLET (FP) PO SCH (22:50)
[2020-08-04] MEDS: CYCLOBENZAPRINE HCL 10 MG TABLET (FP) PO SCH (22:51)
[2020-08-04] MEDS: MONTELUKAST NA 10 MG TABLET PO SCH (22:51)
[2020-08-05] MEDS ORDERED: INSULIN (NOVOLOG) ASPART 100 UNITS/ML 10ML VIAL SQ ONE (02:34)
[2020-08-05] MEDS: INSULIN SLIDING SCALE (NOVOLOG) 1 VIAL SQ SCH ×4 (06:38→21:26)
[2020-08-05] MEDS: HEPARIN NA (PORCINE) 5,000 UNITS/ML 1ML VIAL SQ SCH ×2 (06:39→14:49)
[2020-08-05] MEDS: FUROSEMIDE 40 MG/4 ML INJECTABLE VIAL IVPUSH SCH ×2 (06:39→14:49)
[2020-08-05] MEDS: INSULIN (LEVEMIR) 100 UNITS/ML UNITS SQ SCH ×2 (06:40→21:26)
[2020-08-05] MEDS: LEVOTHYROXINE NA 88 MCG TABLET (FP) PO SCH (06:43)
[2020-08-05] MEDS: NORTRIPTYLINE HCL 25 MG CAPSULE PO SCH ×2 (10:10→21:18)
[2020-08-05] MEDS: ISOSORBIDE MONONITRATE 30 MG TAB.SR.24H (FP) PO SCH (10:10)
[2020-08-05] MEDS: CITALOPRAM HYDROBROMIDE 20 MG TABLET PO SCH (10:10)
[2020-08-05] MEDS: CARVEDILOL 25 MG TABLET (FP) PO SCH ×2 (10:11→21:18)
[2020-08-05] MEDS: ASPIRIN 81 MG CHEWABLE TABLETS PO SCH (10:11)
[2020-08-05] MEDS: MULTIVITAMINS (DAILY MVI) TABLET (FP) PO SCH (10:11)
[2020-08-05 10:38] LABS: BASO % 0.1 % (0-2.0); EOS % 0.1 % (0-4.5); HEMATOCRIT 33.2 % (32.4-45.2); HEMOGLOBIN 10.5 GM/dL (10.7-15.3); LYMPH % 9.7 % (8-40); MCH 30.3 pg (25.7-33.7); MCHC 31.8 g/dl (32.0-36.0); MEAN CELL VOLUME 95.3 fl (80-96); MEAN PLT VOLUME 7.1 fl (7.5-11.1); MONO % 9.3 % (3.8-10.2); NEUT % 80.8 % (42.8-82.8); PLATELET COUNT 413 10^3/uL (134-434); RBC 3.48 M/mm3 (3.60-5.2); RDW 17.8 % (11.6-15.6); WHITE BLOOD COUNT 10.3 K/mm3 (4.0-10.0)
[2020-08-05 11:07] LABS: CALCIUM 9.1 mg/dL (8.5-10.1)
[2020-08-05 11:08] LABS: ALBUMIN 3.8 g/dl (3.4-5.0); BLOOD UREA NITROGEN 71.8 mg/dL (7-18); MAGNESIUM 3.1 mg/dL (1.8-2.4)
[2020-08-05 11:11] LABS: CREATININE 3.8 mg/dL (0.55-1.3); PHOSPHOROUS 5.8 mg/dL (2.5-4.9)
[2020-08-05 11:12] LABS: BILIRUBIN,TOTAL 0.4 mg/dL (0.2-1)
[2020-08-05 11:13] LABS: TOT PROT 8.3 g/dl (6.4-8.2)
[2020-08-05] MEDS ORDERED: IRON SUCROSE INJECTION 100 MG in SODIUM CHLORIDE 95 ML IVPB ONE ×2 (14:17→14:30)
[2020-08-05] MEDS: MONTELUKAST NA 10 MG TABLET PO SCH (21:18)
[2020-08-05] MEDS: ATORVASTATIN CA 10 MG TABLET (FP) PO SCH (21:18)
[2020-08-05] MEDS: CYCLOBENZAPRINE HCL 10 MG TABLET (FP) PO SCH (21:19)
[2020-08-05] MEDS: ACETAMINOPHEN 325 MG TABLET (FP) PO PRN (23:20)
[2020-08-06] MEDS: FUROSEMIDE 40 MG/4 ML INJECTABLE VIAL IVPUSH SCH ×2 (06:00→13:06)
[2020-08-06] MEDS: INSULIN (LEVEMIR) 100 UNITS/ML UNITS SQ SCH ×2 (06:25→22:16)
[2020-08-06] MEDS: LEVOTHYROXINE NA 88 MCG TABLET (FP) PO SCH (06:25)
[2020-08-06] MEDS: INSULIN SLIDING SCALE (NOVOLOG) 1 VIAL SQ SCH ×4 (06:26→22:17)
[2020-08-06 09:08] LABS: CALCIUM 8.8 mg/dL (8.5-10.1)
[2020-08-06 09:09] LABS: ALBUMIN 3.5 g/dl (3.4-5.0); BLOOD UREA NITROGEN 91.4 mg/dL (7-18); MAGNESIUM 2.9 mg/dL (1.8-2.4)
[2020-08-06 09:12] LABS: CREATININE 3.8 mg/dL (0.55-1.3); PHOSPHOROUS 5.7 mg/dL (2.5-4.9)
[2020-08-06 09:13] LABS: BILIRUBIN,TOTAL 0.4 mg/dL (0.2-1); TOT PROT 7.5 g/dl (6.4-8.2)
[2020-08-06] MEDS: CITALOPRAM HYDROBROMIDE 20 MG TABLET PO SCH (10:38)
[2020-08-06] MEDS: CARVEDILOL 25 MG TABLET (FP) PO SCH ×2 (10:38→21:41)
[2020-08-06] MEDS: MULTIVITAMINS (DAILY MVI) TABLET (FP) PO SCH (10:38)
[2020-08-06] MEDS: NORTRIPTYLINE HCL 25 MG CAPSULE PO SCH ×2 (10:38→21:41)
[2020-08-06] MEDS: ISOSORBIDE MONONITRATE 30 MG TAB.SR.24H (FP) PO SCH (10:39)
[2020-08-06] MEDS: ASPIRIN 81 MG CHEWABLE TABLETS PO SCH (10:39)
[2020-08-06] MEDS: MONTELUKAST NA 10 MG TABLET PO SCH (21:42)
[2020-08-06] MEDS: ATORVASTATIN CA 10 MG TABLET (FP) PO SCH (21:43)
[2020-08-06] MEDS: CYCLOBENZAPRINE HCL 10 MG TABLET (FP) PO SCH (21:45)
[2020-08-07] MEDS: FUROSEMIDE 40 MG/4 ML INJECTABLE VIAL IVPUSH SCH ×2 (06:16→14:25)
[2020-08-07] MEDS: LEVOTHYROXINE NA 88 MCG TABLET (FP) PO SCH (06:18)
[2020-08-07] MEDS: INSULIN SLIDING SCALE (NOVOLOG) 1 VIAL SQ SCH ×4 (06:18→21:26)
[2020-08-07] MEDS: INSULIN (LEVEMIR) 100 UNITS/ML UNITS SQ SCH ×2 (07:30→21:25)
[2020-08-07 07:35] LABS: BASO % 0.5 % (0-2.0); EOS % 3.6 % (0-4.5); HEMATOCRIT 34.4 % (32.4-45.2); HEMOGLOBIN 10.9 GM/dL (10.7-15.3); LYMPH % 16.7 % (8-40); MCH 29.9 pg (25.7-33.7); MCHC 31.6 g/dl (32.0-36.0); MEAN CELL VOLUME 94.5 fl (80-96); MONO % 9.7 % (3.8-10.2); NEUT % 69.5 % (42.8-82.8); PLATELET COUNT 349 10^3/uL (134-434); RBC 3.64 M/mm3 (3.60-5.2); RDW 17.5 % (11.6-15.6); WHITE BLOOD COUNT 7.7 K/mm3 (4.0-10.0)
[2020-08-07] MEDS: NORTRIPTYLINE HCL 25 MG CAPSULE PO SCH ×2 (10:55→21:23)
[2020-08-07] MEDS: ISOSORBIDE MONONITRATE 30 MG TAB.SR.24H (FP) PO SCH (10:55)
[2020-08-07] MEDS: CARVEDILOL 25 MG TABLET (FP) PO SCH ×2 (10:56→21:22)
[2020-08-07] MEDS: CITALOPRAM HYDROBROMIDE 20 MG TABLET PO SCH (10:56)
[2020-08-07] MEDS: ASPIRIN 81 MG CHEWABLE TABLETS PO SCH (10:56)
[2020-08-07] MEDS: MULTIVITAMINS (DAILY MVI) TABLET (FP) PO SCH (10:56)
[2020-08-07] MEDS: CYCLOBENZAPRINE HCL 10 MG TABLET (FP) PO SCH (21:23)
[2020-08-07] MEDS: MONTELUKAST NA 10 MG TABLET PO SCH (21:23)
[2020-08-07] MEDS: ATORVASTATIN CA 10 MG TABLET (FP) PO SCH (21:23)
[2020-08-08] MEDS: LEVOTHYROXINE NA 88 MCG TABLET (FP) PO SCH (06:27)
[2020-08-08] MEDS: INSULIN (LEVEMIR) 100 UNITS/ML UNITS SQ SCH ×2 (06:27→21:35)
[2020-08-08] MEDS: INSULIN SLIDING SCALE (NOVOLOG) 1 VIAL SQ SCH ×4 (06:27→21:37)
[2020-08-08] MEDS: FUROSEMIDE 40 MG/4 ML INJECTABLE VIAL IVPUSH SCH ×2 (06:42→14:58)
[2020-08-08 07:46] LABS: HEMATOCRIT 31.3 % (32.4-45.2); MCH 30.4 pg (25.7-33.7); MCHC 32.1 g/dl (32.0-36.0); MEAN CELL VOLUME 94.7 fl (80-96); PLATELET COUNT 280 10^3/uL (134-434); RDW 17.4 % (11.6-15.6); WHITE BLOOD COUNT 6.1 K/mm3 (4.0-10.0)
[2020-08-08 08:02] LABS: CALCIUM 8.9 mg/dL (8.5-10.1)
[2020-08-08 08:03] LABS: ALBUMIN 3.2 g/dl (3.4-5.0); BLOOD UREA NITROGEN 90.2 mg/dL (7-18); MAGNESIUM 2.5 mg/dL (1.8-2.4)
[2020-08-08 08:05] LABS: BILIRUBIN,TOTAL 0.4 mg/dL (0.2-1)
[2020-08-08 08:06] LABS: CREATININE 3.5 mg/dL (0.55-1.3); PHOSPHOROUS 5.2 mg/dL (2.5-4.9)
[2020-08-08 08:07] LABS: TOT PROT 6.9 g/dl (6.4-8.2)
[2020-08-08] MEDS: CARVEDILOL 25 MG TABLET (FP) PO SCH ×2 (09:40→21:35)
[2020-08-08] MEDS: ISOSORBIDE MONONITRATE 30 MG TAB.SR.24H (FP) PO SCH (09:40)
[2020-08-08] MEDS: NORTRIPTYLINE HCL 25 MG CAPSULE PO SCH ×2 (09:40→21:35)
[2020-08-08] MEDS: CITALOPRAM HYDROBROMIDE 20 MG TABLET PO SCH (09:41)
[2020-08-08] MEDS: ASPIRIN 81 MG CHEWABLE TABLETS PO SCH (09:43)
[2020-08-08] MEDS: MULTIVITAMINS (DAILY MVI) TABLET (FP) PO SCH (09:43)
[2020-08-08] MEDS: MONTELUKAST NA 10 MG TABLET PO SCH (21:35)
[2020-08-08] MEDS: ATORVASTATIN CA 10 MG TABLET (FP) PO SCH (21:35)
[2020-08-08] MEDS: ACETAMINOPHEN 325 MG TABLET (FP) PO PRN (21:47)
[2020-08-08] MEDS: CYCLOBENZAPRINE HCL 10 MG TABLET (FP) PO SCH (21:47)
[2020-08-08 23:07] LABS: HEP B CORE AB, TOT Negative (Negative)
[2020-08-09] MEDS: LEVOTHYROXINE NA 88 MCG TABLET (FP) PO SCH (06:07)
[2020-08-09] MEDS: FUROSEMIDE 40 MG/4 ML INJECTABLE VIAL IVPUSH SCH ×2 (06:07→13:55)
[2020-08-09] MEDS: INSULIN (LEVEMIR) 100 UNITS/ML UNITS SQ SCH (07:07)
[2020-08-09] MEDS: INSULIN SLIDING SCALE (NOVOLOG) 1 VIAL SQ SCH ×2 (07:07→12:06)
[2020-08-09] MEDS: NORTRIPTYLINE HCL 25 MG CAPSULE PO SCH (09:30)
[2020-08-09] MEDS: ISOSORBIDE MONONITRATE 30 MG TAB.SR.24H (FP) PO SCH (09:30)
[2020-08-09] MEDS: ASPIRIN 81 MG CHEWABLE TABLETS PO SCH (09:30)
[2020-08-09] MEDS: MULTIVITAMINS (DAILY MVI) TABLET (FP) PO SCH (09:30)
[2020-08-09] MEDS: CITALOPRAM HYDROBROMIDE 20 MG TABLET PO SCH (09:30)
[2020-08-09] MEDS: CARVEDILOL 25 MG TABLET (FP) PO SCH (09:30)
[2020-08-09 09:36] LABS: HEMOGLOBIN 11.1 GM/dL (10.7-15.3); MCHC 31.8 g/dl (32.0-36.0); MEAN CELL VOLUME 94.3 fl (80-96); MEAN PLT VOLUME 7.1 fl (7.5-11.1); PLATELET COUNT 312 10^3/uL (134-434); RBC 3.71 M/mm3 (3.60-5.2); RDW 17.2 % (11.6-15.6); WHITE BLOOD COUNT 6.6 K/mm3 (4.0-10.0)
[2020-08-09 10:18] LABS: ALBUMIN 3.7 g/dl (3.4-5.0); BLOOD UREA NITROGEN 78.6 mg/dL (7-18); MAGNESIUM 2.3 mg/dL (1.8-2.4)
[2020-08-09 10:21] LABS: CREATININE 3.2 mg/dL (0.55-1.3); PHOSPHOROUS 5.4 mg/dL (2.5-4.9)
[2020-08-09 10:22] LABS: BILIRUBIN,TOTAL 0.6 mg/dL (0.2-1)
[2020-08-09] MEDS ORDERED: hydrALAZINE HCL 10 MG TABLET PO SCH (11:30)
[2020-08-09 15:18] VITALS: BP 125/56; PULSE 73; TEMP 98.4
== END 2020-08-09 18:01 | disposition home health service (06) | DRG 194 ==
LOC: JER 15:07 → JERBED 16:40 → J4W 08-03 03:56
PROVIDERS: ATTEND Internal Medicine
DX: I13.0 Hypertensive heart and chronic kidney disease with heart failure and stage 1 through stage 4 chronic kidney disease, or unspecified chronic kidney disease (principal); J96.01 Acute respiratory failure with hypoxia; I50.23 Acute on chronic systolic (congestive) heart failure; N18.4 Chronic kidney disease, stage 4 (severe); E11.22 Type 2 diabetes mellitus with diabetic chronic kidney disease; K76.0 Fatty (change of) liver, not elsewhere classified; N17.9 Acute kidney failure, unspecified; I27.20 Pulmonary hypertension, unspecified; E11.65 Type 2 diabetes mellitus with hyperglycemia; I42.8 Other cardiomyopathies; E87.5 Hyperkalemia; I25.10 Atherosclerotic heart disease of native coronary artery without angina pectoris; E78.5 Hyperlipidemia, unspecified; E03.9 Hypothyroidism, unspecified; R74.01 Elevation of levels of liver transaminase levels; Z95.0 Presence of cardiac pacemaker; D64.9 Anemia, unspecified; Z79.4 Long term (current) use of insulin; J45.901 Unspecified asthma with (acute) exacerbation
CPT/HCPCS: 36415; 71045-TC-FY; 71250-TC; 76700-TC; 80048; 80053; 80307; 81003; 82550; 82570; 82728; 82962; 83540; 83550; 83735; 83880; 84100; 84156; 84300; 84484; 85025; 85027; 85379; 85610; 85730; 86704; 86706; 86707; 86708; 86709; 87040; 87340; 87804; 87899; 93005; 93010; 93970-TC; 94761; 97116-GP; 97162-GP; 99291; C9803; J1644; J1756; U0003; U0005

== ENCOUNTER 2020-09-21 04:11 | Day surgery (SDC) | payer OTHER ==
[2020-09-16 17:33] VITALS: BMI 35.6
[2020-09-21] MEDS ORDERED: PAPAVERINE HCL 30 MG/1 ML 10 ML VIAL NR ONE (09:59)
[2020-09-21] MEDS ORDERED: MIDAZOLAM HCL 2 MG/2 ML SINGLE DOSE VIAL ONE (10:12)
[2020-09-21] MEDS ORDERED: PROPOFOL 20 ML ONE (10:12)
[2020-09-21] MEDS ORDERED: ALBUTEROL SO4 HFA INHALER IH ONE (10:19)
[2020-09-21] MEDS ORDERED: LIDOCAINE HCL 1%, 10 MG/ML (20ML VIAL) ONE (10:40)
[2020-09-21] MEDS ORDERED: LIDOCAINE HCL 1%, 10 MG/ML (20ML VIAL) NR ONE (10:43)
[2020-09-21] MEDS ORDERED: POVIDONE-IODINE OINTMENT 10% - 28.4 GM TUBE TP ONE (10:44)
[2020-09-21] MEDS ORDERED: ACETAMINOPHEN WITH CODEINE 300MG/30MG TABLET PO PRN (12:11)
[2020-09-21] MEDS ORDERED: ONDANSETRON 4 MG/2 ML VIAL IVPUSH PRN (12:22)
[2020-09-21 14:43] VITALS: BP 136/86; PULSE 85; TEMP 98.6
== END 2020-09-21 15:00 | disposition home or self-care (01) ==
LOC: JASU-SURG 04:11
PROVIDERS: ATTEND Surgery
PROC: 057 Upper Veins, Dilation (ICD-10-PCS; principal; 2020-09-21 10:00)
DX: I12.0 Hypertensive chronic kidney disease with stage 5 chronic kidney disease or end stage renal disease (principal); E11.22 Type 2 diabetes mellitus with diabetic chronic kidney disease; N18.6 End stage renal disease
CPT/HCPCS: 82962; 94760

== ENCOUNTER 2020-12-05 11:39 | Emergency (ER) | payer OTHER ==
[2020-12-05 11:58] VITALS: TEMP 98.4; BMI 34.6
[2020-12-05 19:32] VITALS: BP 157/68; PULSE 86
== END 2020-12-05 22:55 | disposition home or self-care (01) ==
LOC: JER 11:39
DX: S82.001A Unspecified fracture of right patella, initial encounter for closed fracture (principal); M25.512 Pain in left shoulder; W06.XXXA Fall from bed, initial encounter
CPT/HCPCS: 73030-TC-LT-FY; 73523-TC-FY; 73562-TC-RT-FY; 99285-25

== ENCOUNTER 2020-12-11 23:15 | Inpatient (IN) | payer OTHER ==
[2020-12-11 23:29] VITALS: BMI 34.6
[2020-12-11] MEDS ORDERED: morphine SULFATE 4 MG/ML VIAL IVPUSH ONE (23:59)
[2020-12-12] MEDS ORDERED: morphine SULFATE 4 MG/ML VIAL ONE ×2 (00:16→04:12)
[2020-12-12 01:23] LABS: BASO % 0.3 % (0-2.0); HEMATOCRIT 32.3 % (32.4-45.2); HEMOGLOBIN 10.5 GM/dL (10.7-15.3); LYMPH % 5.8 % (8-40); MCH 31.2 pg (25.7-33.7); MCHC 32.5 g/dl (32.0-36.0); MEAN PLT VOLUME 7.7 fl (7.5-11.1); MONO % 5.9 % (3.8-10.2); PLATELET COUNT 260 10^3/uL (134-434); RBC 3.37 M/mm3 (3.60-5.2); RDW 16.7 % (11.6-15.6)
[2020-12-12 01:29] LABS: PROTHROMBIN TIME (PATIENT) 11.7 SEC (9.7-13.0)
[2020-12-12 01:31] LABS: ACTIVATED PTT 28.5 SECONDS (25.2-36.5)
[2020-12-12 01:43] LABS: ALBUMIN 3.2 g/dl (3.4-5.0); BLOOD UREA NITROGEN 68.8 mg/dL (7-18); CALCIUM 8.3 mg/dL (8.5-10.1)
[2020-12-12 01:46] LABS: CREATININE 3.9 mg/dL (0.55-1.3)
[2020-12-12 01:48] LABS: BILIRUBIN,TOTAL 0.2 mg/dL (0.2-1); TOT PROT 7.5 g/dl (6.4-8.2)
[2020-12-12] MEDS ORDERED: INSULIN REGULAR HUMAN 100 UNITS/ML *VIAL IVPUSH ONE (02:06)
[2020-12-12] MEDS ORDERED: DEXTROSE 50%-WATER - 25 GM/50 ML VIAL IVPUSH ONE (02:06)
[2020-12-12] MEDS ORDERED: DEXTROSE 50%-WATER 25 GM/50 ML DISP.SYRIN ONE (02:25)
[2020-12-12] MEDS ORDERED: morphine SULFATE 4 MG/ML VIAL IVPUSH ONE (04:01)
[2020-12-12 08:14] LABS: EPI CELLS 4 /uL (0-25.1); HYALINE CASTS 0 /uL (0-3.1); PH,URINE 5.5 (5.0-8.0); URINE APPEARANCE CLEAR; URINE BACTERIA 40 /uL (0-1359); URINE BILIRUBIN NEGATIVE (NEGATIVE); URINE COLOR YELLOW; URINE GLUCOSE (UA) 3+ (NEGATIVE); URINE KETONE NEGATIVE (NEGATIVE); URINE LEUK ESTERASE NEGATIVE (NEGATIVE); URINE NITRITE NEGATIVE (NEGATIVE); URINE PROTEIN 1+ (NEGATIVE); URINE RBC 2 /uL (0-23.9); URINE UROBILINOGEN 0.2 mg/dL (0.2-1.0); URINE WBC 24 /uL (0-25.8)
[2020-12-12] MEDS: INSULIN SLIDING SCALE (NOVOLOG) 1 VIAL SQ SCH ×3 (08:28→17:30)
[2020-12-12 09:21] LABS: BASO % 0.4 % (0-2.0); EOS % 0.6 % (0-4.5); HEMOGLOBIN 10.5 GM/dL (10.7-15.3); LYMPH % 7.9 % (8-40); MCH 31.5 pg (25.7-33.7); MCHC 32.8 g/dl (32.0-36.0); MEAN PLT VOLUME 7.6 fl (7.5-11.1); MONO % 7.4 % (3.8-10.2); NEUT % 83.7 % (42.8-82.8); PLATELET COUNT 249 10^3/uL (134-434); RBC 3.33 M/mm3 (3.60-5.2); RDW 16.7 % (11.6-15.6); WHITE BLOOD COUNT 9.3 K/mm3 (4.0-10.0)
[2020-12-12 09:50] LABS: CHLORIDE 101 mmol/L (98-107); SODIUM 136 mmol/L (136-145)
[2020-12-12 09:52] LABS: CALCIUM 9.5 mg/dL (8.5-10.1)
[2020-12-12 09:53] LABS: ANION GAP 8 MMOL/L (8-16); BLOOD UREA NITROGEN 66.6 mg/dL (7-18); CO2 27 mmol/L (21-32); MAGNESIUM 2.3 mg/dL (1.8-2.4)
[2020-12-12 09:55] LABS: CHOLESTEROL 177 mg/dL (50-200)
[2020-12-12 09:56] LABS: CREATININE 3.8 mg/dL (0.55-1.3); PHOSPHOROUS 4.3 mg/dL (2.5-4.9); TRIGLYCERIDES 178 mg/dL (0-150)
[2020-12-12 09:57] LABS: LDL CHOLESTEROL (ONLY SJRH) 83 mg/dL (5-100)
[2020-12-12 09:58] LABS: HDL CHOLESTEROL 57 mg/dL (40-60)
[2020-12-12 10:10] LABS: GLUCOSE,RANDOM 422 mg/dL (74-106)
[2020-12-12] MEDS ORDERED: SODIUM ZIRCONIUM CYCLOSILICATE (LOKELMA) 5 GM PACKET ONE (12:17)
[2020-12-12] MEDS: SODIUM ZIRCONIUM CYCLOSILICATE (LOKELMA) 5 GM PACKET PO SCH (12:48)
[2020-12-12] MEDS ORDERED: INSULIN (NOVOLOG) ASPART 100 UNITS/ML 10ML VIAL ONE (17:28)
[2020-12-12] MEDS ORDERED: ACETAMINOPHEN 1000 MG/100 ML VIAL IVPB PRN (17:29)
[2020-12-12] MEDS ORDERED: ALBUTEROL SO4 HFA INHALER IH PRN (18:32)
[2020-12-12 21:44] LABS: CALCIUM 8.9 mg/dL (8.5-10.1)
[2020-12-12 21:45] LABS: BLOOD UREA NITROGEN 63.2 mg/dL (7-18)
[2020-12-12 21:48] LABS: CREATININE 3.8 mg/dL (0.55-1.3)
[2020-12-12] MEDS ORDERED: ATORVASTATIN CA 10 MG TABLET (FP) PO SCH (22:00)
[2020-12-12] MEDS ORDERED: PT OWN MED DRAWER 7, Y5N ONE (23:16)
[2020-12-12] MEDS: PANTOPRAZOLE 40 MG TABLET PO SCH (23:22)
[2020-12-12] MEDS: hydrALAZINE HCL 10 MG TABLET PO SCH (23:25)
[2020-12-12] MEDS: CARVEDILOL 25 MG TABLET (FP) PO SCH (23:30)
[2020-12-13] MEDS ORDERED: PT OWN MED DRAWER 7, Y5N ONE ×3 (00:39→21:30)
[2020-12-13] MEDS ORDERED: LEVOTHYROXINE NA 88 MCG TABLET (FP) PO SCH (07:00)
[2020-12-13] MEDS: INSULIN SLIDING SCALE (NOVOLOG) 1 VIAL SQ SCH ×3 (07:05→17:15)
[2020-12-13 08:36] LABS: BASO % 0.4 % (0-2.0); EOS % 1.3 % (0-4.5); HEMATOCRIT 31.5 % (32.4-45.2); HEMOGLOBIN 10.3 GM/dL (10.7-15.3); LYMPH % 7.3 % (8-40); MCH 31.6 pg (25.7-33.7); MCHC 32.8 g/dl (32.0-36.0); MEAN CELL VOLUME 96.3 fl (80-96); MEAN PLT VOLUME 7.9 fl (7.5-11.1); MONO % 7.3 % (3.8-10.2); NEUT % 83.7 % (42.8-82.8); PLATELET COUNT 266 10^3/uL (134-434); RBC 3.27 M/mm3 (3.60-5.2); RDW 16.4 % (11.6-15.6); WHITE BLOOD COUNT 10.4 K/mm3 (4.0-10.0)
[2020-12-13 08:58] LABS: BLOOD UREA NITROGEN 57.1 mg/dL (7-18); CALCIUM 9.3 mg/dL (8.5-10.1)
[2020-12-13 08:59] LABS: ALBUMIN 3.2 g/dl (3.4-5.0); MAGNESIUM 2.7 mg/dL (1.8-2.4)
[2020-12-13 09:01] LABS: CREATININE 3.5 mg/dL (0.55-1.3)
[2020-12-13 09:02] LABS: BILIRUBIN,TOTAL 0.5 mg/dL (0.2-1); TOT PROT 7.6 g/dl (6.4-8.2)
[2020-12-13 09:15] LABS: INR 0.97 (0.83-1.09); PROTHROMBIN TIME (PATIENT) 11.4 SEC (9.7-13.0)
[2020-12-13] MEDS ORDERED: CITALOPRAM HYDROBROMIDE 20 MG TABLET PO SCH (10:00)
[2020-12-13] MEDS ORDERED: MONTELUKAST NA 10 MG TABLET PO SCH (10:00)
[2020-12-13] MEDS ORDERED: ISOSORBIDE MONONITRATE 30 MG TAB.SR.24H (FP) PO SCH (10:00)
[2020-12-13] MEDS ORDERED: CITALOPRAM HYDROBROMIDE PO SCH (10:00)
[2020-12-13] MEDS: CARVEDILOL 25 MG TABLET (FP) PO SCH ×2 (10:24→21:43)
[2020-12-13] MEDS: PANTOPRAZOLE 40 MG TABLET PO SCH ×2 (10:24→21:44)
[2020-12-13] MEDS: hydrALAZINE HCL 10 MG TABLET PO SCH ×2 (10:25→21:43)
[2020-12-13] MEDS: SODIUM ZIRCONIUM CYCLOSILICATE (LOKELMA) 5 GM PACKET PO SCH (10:26)
[2020-12-13] MEDS ORDERED: LACTATED RINGERS SOLUTION 1,000 ML/1,000 ML INFUS.BAG IV SCH (12:15)
[2020-12-13] MEDS ORDERED: SODIUM CHLORIDE 0.45% 1,000 ML IV SCH ×2 (12:30→19:13)
[2020-12-13] MEDS ORDERED: morphine CARPU-JECT 2 MG/1 ML DISP.SYRIN IM PRN (12:38)
[2020-12-13] MEDS ORDERED: morphine SULFATE 4 MG/ML VIAL IVPUSH PRN (12:45)
[2020-12-13] MEDS ORDERED: oxyCODONE HCL 5 MG TABLET PO PRN (15:49)
[2020-12-13] MEDS ORDERED: BUPIVACAINE LIPOSOME/PF (EXPAREL) 266 MG/20 ML VIAL ONE (15:56)
[2020-12-13] MEDS ORDERED: MIDAZOLAM HCL 2 MG/2 ML SINGLE DOSE VIAL ONE ×2 (15:56)
[2020-12-13] MEDS ORDERED: BUPIVACAINE HCL/PF 0.5% (5MG/ML) 10 ML VIAL ONE (16:04)
[2020-12-13] MEDS ORDERED: ALBUTEROL SO4 HFA INHALER IH PRN (19:13)
[2020-12-13] MEDS: ATORVASTATIN CA 10 MG TABLET (FP) PO SCH (21:43)
[2020-12-13] MEDS: CEFAZOLIN 2 GM in DEXTROSE 5%-WATER - 100 ML IVPB SCH (22:04)
[2020-12-13] MEDS: morphine SULFATE 4 MG/ML VIAL IVPUSH PRN (22:51)
[2020-12-13] MEDS ORDERED: ceFAZolin 2 GRAM PREMIX BAG IVPB SCH (23:00)
[2020-12-14] MEDS: oxyCODONE HCL 5 MG TABLET PO PRN ×3 (03:43→20:06)
[2020-12-14] MEDS: CEFAZOLIN 2 GM in DEXTROSE 5%-WATER - 100 ML IVPB SCH (06:07)
[2020-12-14] MEDS: LEVOTHYROXINE NA 88 MCG TABLET (FP) PO SCH (06:09)
[2020-12-14] MEDS ORDERED: INSULIN (NOVOLOG) ASPART 100 UNITS/ML 10ML VIAL ONE ×2 (06:26→20:53)
[2020-12-14] MEDS ORDERED: INSULIN SLIDING SCALE (NOVOLOG) 1 VIAL SQ SCH (07:00)
[2020-12-14 08:41] LABS: BASO % 0.2 % (0-2.0); EOS % 0.2 % (0-4.5); HEMATOCRIT 26.6 % (32.4-45.2); HEMOGLOBIN 8.9 GM/dL (10.7-15.3); LYMPH % 6.1 % (8-40); MCH 32.5 pg (25.7-33.7); MCHC 33.5 g/dl (32.0-36.0); MEAN CELL VOLUME 96.9 fl (80-96); MEAN PLT VOLUME 7.9 fl (7.5-11.1); MONO % 8.2 % (3.8-10.2); NEUT % 85.3 % (42.8-82.8); PLATELET COUNT 256 10^3/uL (134-434); RBC 2.75 M/mm3 (3.60-5.2); RDW 16.2 % (11.6-15.6); WHITE BLOOD COUNT 10.3 K/mm3 (4.0-10.0)
[2020-12-14] MEDS ORDERED: PT OWN MED DRAWER 7, Y5N ONE (09:10)
[2020-12-14] MEDS: MONTELUKAST NA 10 MG TABLET PO SCH (09:16)
[2020-12-14] MEDS: CARVEDILOL 25 MG TABLET (FP) PO SCH ×2 (09:16→21:36)
[2020-12-14] MEDS: ISOSORBIDE MONONITRATE 30 MG TAB.SR.24H (FP) PO SCH (09:17)
[2020-12-14] MEDS: INSULIN (LEVEMIR) 100 UNITS/ML UNITS SQ SCH ×2 (09:17→21:37)
[2020-12-14] MEDS: SODIUM ZIRCONIUM CYCLOSILICATE (LOKELMA) 5 GM PACKET PO SCH (09:17)
[2020-12-14] MEDS: PANTOPRAZOLE 40 MG TABLET PO SCH ×2 (09:17→21:36)
[2020-12-14] MEDS: CITALOPRAM HYDROBROMIDE 20 MG TABLET PO SCH (09:17)
[2020-12-14] MEDS: hydrALAZINE HCL 10 MG TABLET PO SCH ×2 (09:17→21:37)
[2020-12-14] MEDS ORDERED: INSULIN (NOVOLOG) ASPART 100 UNITS/ML 10ML VIAL SQ ONE (11:20)
[2020-12-14] MEDS: INSULIN SLIDING SCALE (NOVOLOG) 1 VIAL SQ SCH ×3 (11:24→21:38)
[2020-12-14 11:40] LABS: BASO % 0.6 % (0-2.0); EOS % 0.3 % (0-4.5); HEMATOCRIT 26.8 % (32.4-45.2); LYMPH % 5.1 % (8-40); MCH 32.4 pg (25.7-33.7); MCHC 33.4 g/dl (32.0-36.0); MEAN CELL VOLUME 96.8 fl (80-96); MEAN PLT VOLUME 7.9 fl (7.5-11.1); MONO % 12.1 % (3.8-10.2); NEUT % 81.9 % (42.8-82.8); PLATELET COUNT 266 10^3/uL (134-434); RBC 2.77 M/mm3 (3.60-5.2); RDW 15.8 % (11.6-15.6); WHITE BLOOD COUNT 10.7 K/mm3 (4.0-10.0)
[2020-12-14 12:01] LABS: CHLORIDE 99 mmol/L (98-107); SODIUM 133 mmol/L (136-145)
[2020-12-14 12:05] LABS: ALBUMIN 2.7 g/dl (3.4-5.0); ANION GAP 9 MMOL/L (8-16); CALCIUM 8.4 mg/dL (8.5-10.1); CO2 25 mmol/L (21-32); MAGNESIUM 2.4 mg/dL (1.8-2.4)
[2020-12-14 12:06] LABS: BLOOD UREA NITROGEN 56.4 mg/dL (7-18)
[2020-12-14 12:08] LABS: CREATININE 3.6 mg/dL (0.55-1.3); SGOT/AST 36 U/L (15-37); SGPT/ALT 22 U/L (13-61)
[2020-12-14 12:10] LABS: BILIRUBIN,TOTAL 0.4 mg/dL (0.2-1)
[2020-12-14 12:11] LABS: ALK PHOS 97 U/L (45-117)
[2020-12-14 12:13] LABS: GLUCOSE,RANDOM 457 mg/dL (74-106)
[2020-12-14] MEDS: ASPIRIN COATED 81 MG TABLET.EC PO SCH ×2 (13:54→21:36)
[2020-12-14] MEDS: ATORVASTATIN CA 10 MG TABLET (FP) PO SCH (21:36)
[2020-12-15] MEDS: INSULIN SLIDING SCALE (NOVOLOG) 1 VIAL SQ SCH ×4 (06:17→21:39)
[2020-12-15] MEDS: LEVOTHYROXINE NA 88 MCG TABLET (FP) PO SCH (06:17)
[2020-12-15 08:14] LABS: BASO % 0.4 % (0-2.0); EOS % 1.6 % (0-4.5); HEMATOCRIT 27.5 % (32.4-45.2); HEMOGLOBIN 9.2 GM/dL (10.7-15.3); LYMPH % 10.1 % (8-40); MCH 32.5 pg (25.7-33.7); MCHC 33.4 g/dl (32.0-36.0); MEAN CELL VOLUME 97.3 fl (80-96); MEAN PLT VOLUME 7.5 fl (7.5-11.1); MONO % 7.9 % (3.8-10.2); PLATELET COUNT 268 10^3/uL (134-434); RBC 2.83 M/mm3 (3.60-5.2); RDW 16.3 % (11.6-15.6); WHITE BLOOD COUNT 9.6 K/mm3 (4.0-10.0)
[2020-12-15] MEDS: morphine SULFATE 4 MG/ML VIAL IVPUSH PRN (08:28)
[2020-12-15 08:30] LABS: CALCIUM 8.9 mg/dL (8.5-10.1)
[2020-12-15 08:31] LABS: ALBUMIN 2.5 g/dl (3.4-5.0); MAGNESIUM 2.4 mg/dL (1.8-2.4)
[2020-12-15 08:34] LABS: CREATININE 3.7 mg/dL (0.55-1.3)
[2020-12-15 08:35] LABS: BILIRUBIN,TOTAL 0.2 mg/dL (0.2-1); TOT PROT 6.8 g/dl (6.4-8.2)
[2020-12-15] MEDS ORDERED: PT OWN MED DRAWER 7, Y5N ONE ×3 (09:34→21:27)
[2020-12-15] MEDS: SODIUM ZIRCONIUM CYCLOSILICATE (LOKELMA) 5 GM PACKET PO SCH (09:40)
[2020-12-15] MEDS: hydrALAZINE HCL 10 MG TABLET PO SCH ×2 (09:40→21:38)
[2020-12-15] MEDS: CITALOPRAM HYDROBROMIDE 20 MG TABLET PO SCH (09:41)
[2020-12-15] MEDS: ISOSORBIDE MONONITRATE 30 MG TAB.SR.24H (FP) PO SCH (09:41)
[2020-12-15] MEDS: PANTOPRAZOLE 40 MG TABLET PO SCH ×2 (09:41→21:32)
[2020-12-15] MEDS: ASPIRIN COATED 81 MG TABLET.EC PO SCH ×2 (09:42→21:32)
[2020-12-15] MEDS: CARVEDILOL 25 MG TABLET (FP) PO SCH ×2 (09:42→21:32)
[2020-12-15] MEDS: INSULIN (LEVEMIR) 100 UNITS/ML UNITS SQ SCH ×2 (09:50→21:36)
[2020-12-15] MEDS: MONTELUKAST NA 10 MG TABLET PO SCH (09:52)
[2020-12-15] MEDS ORDERED: INSULIN (NOVOLOG) ASPART 100 UNITS/ML 10ML VIAL ONE ×2 (12:00→21:27)
[2020-12-15] MEDS: oxyCODONE HCL 5 MG TABLET PO PRN (13:13)
[2020-12-15] MEDS: DOCUSATE SODIUM 100 MG CAPSULE (FP) PO SCH ×2 (13:59→21:32)
[2020-12-15] MEDS ORDERED: ALBUTEROL SO4 0.083% IH SOL 2.5 MG/3 ML VIAL.NEB. NEB ONE (15:05)
[2020-12-15] MEDS: BUDESONIDE/FORMETEROL FUMARATE 80/4.5 mcg INHALER IH SCH ×2 (16:30→21:55)
[2020-12-15] MEDS: ATORVASTATIN CA 10 MG TABLET (FP) PO SCH (21:32)
[2020-12-15] MEDS: SENNOSIDES 8.6MG TABLET (FP) PO SCH (21:33)
[2020-12-16] MEDS: DOCUSATE SODIUM 100 MG CAPSULE (FP) PO SCH ×3 (05:22→22:21)
[2020-12-16] MEDS: INSULIN (LEVEMIR) 100 UNITS/ML UNITS SQ SCH ×2 (06:09→22:23)
[2020-12-16] MEDS: LEVOTHYROXINE NA 88 MCG TABLET (FP) PO SCH (06:13)
[2020-12-16] MEDS: INSULIN SLIDING SCALE (NOVOLOG) 1 VIAL SQ SCH ×4 (06:13→22:26)
[2020-12-16 07:39] LABS: BASO % 0.3 % (0-2.0); HEMATOCRIT 24.5 % (32.4-45.2); HEMOGLOBIN 8.4 GM/dL (10.7-15.3); LYMPH % 8.1 % (8-40); MCH 32.9 pg (25.7-33.7); MCHC 34.3 g/dl (32.0-36.0); MEAN PLT VOLUME 7.8 fl (7.5-11.1); MONO % 9.5 % (3.8-10.2); NEUT % 80.1 % (42.8-82.8); PLATELET COUNT 255 10^3/uL (134-434); RBC 2.55 M/mm3 (3.60-5.2); RDW 16.4 % (11.6-15.6); WHITE BLOOD COUNT 9.1 K/mm3 (4.0-10.0)
[2020-12-16 07:46] LABS: CALCIUM 8.4 mg/dL (8.5-10.1)
[2020-12-16 07:47] LABS: ALBUMIN 2.1 g/dl (3.4-5.0); BLOOD UREA NITROGEN 72.6 mg/dL (7-18); MAGNESIUM 2.2 mg/dL (1.8-2.4)
[2020-12-16 07:50] LABS: CREATININE 3.7 mg/dL (0.55-1.3)
[2020-12-16 07:51] LABS: BILIRUBIN,TOTAL 0.3 mg/dL (0.2-1); TOT PROT 6.2 g/dl (6.4-8.2)
[2020-12-16] MEDS: oxyCODONE HCL 5 MG TABLET PO PRN (09:48)
[2020-12-16] MEDS: CITALOPRAM HYDROBROMIDE 20 MG TABLET PO SCH (09:50)
[2020-12-16] MEDS: BUDESONIDE/FORMETEROL FUMARATE 80/4.5 mcg INHALER IH SCH ×2 (09:50→22:34)
[2020-12-16] MEDS: ASPIRIN COATED 81 MG TABLET.EC PO SCH ×2 (09:50→22:21)
[2020-12-16] MEDS: CARVEDILOL 25 MG TABLET (FP) PO SCH ×2 (09:51→22:21)
[2020-12-16] MEDS: PANTOPRAZOLE 40 MG TABLET PO SCH ×2 (09:51→22:21)
[2020-12-16] MEDS: SODIUM ZIRCONIUM CYCLOSILICATE (LOKELMA) 5 GM PACKET PO SCH (09:51)
[2020-12-16] MEDS: hydrALAZINE HCL 10 MG TABLET PO SCH ×2 (09:51→22:21)
[2020-12-16] MEDS: MONTELUKAST NA 10 MG TABLET PO SCH (09:51)
[2020-12-16] MEDS: ISOSORBIDE MONONITRATE 30 MG TAB.SR.24H (FP) PO SCH (09:51)
[2020-12-16] MEDS: POLYETHYLENE GLYCOL (HEALTHYLAX) 3350 17 GM PACKET PO SCH (14:35)
[2020-12-16] MEDS ORDERED: INSULIN (NOVOLOG) ASPART 100 UNITS/ML 10ML VIAL ONE (22:10)
[2020-12-16] MEDS ORDERED: PT OWN MED DRAWER 7, Y5N ONE ×2 (22:11→22:36)
[2020-12-16] MEDS: SENNOSIDES 8.6MG TABLET (FP) PO SCH (22:19)
[2020-12-16] MEDS: ATORVASTATIN CA 10 MG TABLET (FP) PO SCH (22:21)
[2020-12-17] MEDS: morphine SULFATE 4 MG/ML VIAL IVPUSH PRN (00:06)
[2020-12-17] MEDS: DOCUSATE SODIUM 100 MG CAPSULE (FP) PO SCH ×3 (05:36→22:14)
[2020-12-17] MEDS: LEVOTHYROXINE NA 88 MCG TABLET (FP) PO SCH (06:39)
[2020-12-17] MEDS: INSULIN (LEVEMIR) 100 UNITS/ML UNITS SQ SCH ×2 (06:39→22:15)
[2020-12-17] MEDS: INSULIN SLIDING SCALE (NOVOLOG) 1 VIAL SQ SCH ×4 (06:39→22:15)
[2020-12-17] MEDS: CITALOPRAM HYDROBROMIDE 20 MG TABLET PO SCH (11:05)
[2020-12-17] MEDS: hydrALAZINE HCL 10 MG TABLET PO SCH ×2 (11:05→22:14)
[2020-12-17] MEDS: CARVEDILOL 25 MG TABLET (FP) PO SCH ×2 (11:06→22:14)
[2020-12-17] MEDS: ASPIRIN COATED 81 MG TABLET.EC PO SCH ×2 (11:06→22:14)
[2020-12-17] MEDS: POLYETHYLENE GLYCOL (HEALTHYLAX) 3350 17 GM PACKET PO SCH (11:07)
[2020-12-17] MEDS: PANTOPRAZOLE 40 MG TABLET PO SCH ×2 (11:08→22:14)
[2020-12-17] MEDS: BUDESONIDE/FORMETEROL FUMARATE 80/4.5 mcg INHALER IH SCH ×2 (11:08→22:15)
[2020-12-17] MEDS: MONTELUKAST NA 10 MG TABLET PO SCH (11:08)
[2020-12-17] MEDS: SODIUM ZIRCONIUM CYCLOSILICATE (LOKELMA) 5 GM PACKET PO SCH (11:08)
[2020-12-17] MEDS: ISOSORBIDE MONONITRATE 30 MG TAB.SR.24H (FP) PO SCH (11:14)
[2020-12-17] MEDS: TORSEMIDE 20 MG TABLET (FP) PO SCH (16:21)
[2020-12-17 16:36] LABS: BASO % 0.5 % (0-2.0); EOS % 2.3 % (0-4.5); HEMATOCRIT 24.9 % (32.4-45.2); HEMOGLOBIN 8.2 GM/dL (10.7-15.3); LYMPH % 7.6 % (8-40); MCH 31.7 pg (25.7-33.7); MCHC 32.9 g/dl (32.0-36.0); MEAN CELL VOLUME 96.5 fl (80-96); MEAN PLT VOLUME 7.4 fl (7.5-11.1); MONO % 8.8 % (3.8-10.2); NEUT % 80.8 % (42.8-82.8); PLATELET COUNT 283 10^3/uL (134-434); RBC 2.57 M/mm3 (3.60-5.2); RDW 16.7 % (11.6-15.6); WHITE BLOOD COUNT 8.6 K/mm3 (4.0-10.0)
[2020-12-17 16:55] LABS: ALBUMIN 2.4 g/dl (3.4-5.0); BLOOD UREA NITROGEN 73.1 mg/dL (7-18); CALCIUM 8.5 mg/dL (8.5-10.1); MAGNESIUM 2.8 mg/dL (1.8-2.4)
[2020-12-17 16:58] LABS: CREATININE 3.1 mg/dL (0.55-1.3)
[2020-12-17 17:00] LABS: BILIRUBIN,TOTAL 0.3 mg/dL (0.2-1); TOT PROT 6.6 g/dl (6.4-8.2)
[2020-12-17] MEDS ORDERED: oxyCODONE HCL 5 MG TABLET PO PRN (17:23)
[2020-12-17] MEDS ORDERED: INSULIN (NOVOLOG) ASPART 100 UNITS/ML 10ML VIAL ONE (18:09)
[2020-12-17] MEDS ORDERED: PT OWN MED DRAWER 7, Y5N ONE (22:06)
[2020-12-17] MEDS: SENNOSIDES 8.6MG TABLET (FP) PO SCH (22:14)
[2020-12-17] MEDS: ATORVASTATIN CA 10 MG TABLET (FP) PO SCH (22:14)
[2020-12-18] MEDS: INSULIN SLIDING SCALE (NOVOLOG) 1 VIAL SQ SCH ×4 (06:36→22:37)
[2020-12-18] MEDS: DOCUSATE SODIUM 100 MG CAPSULE (FP) PO SCH ×3 (06:37→22:36)
[2020-12-18] MEDS: LEVOTHYROXINE NA 88 MCG TABLET (FP) PO SCH (06:38)
[2020-12-18] MEDS: INSULIN (LEVEMIR) 100 UNITS/ML UNITS SQ SCH ×2 (06:38→22:39)
[2020-12-18 10:52] LABS: BLOOD UREA NITROGEN 82.2 mg/dL (7-18); CALCIUM 9.3 mg/dL (8.5-10.1)
[2020-12-18 10:56] LABS: CREATININE 3.6 mg/dL (0.55-1.3)
[2020-12-18] MEDS ORDERED: INSULIN (LEVEMIR) 100 UNITS/ML UNITS SQ SCH (11:36)
[2020-12-18] MEDS: POLYETHYLENE GLYCOL (HEALTHYLAX) 3350 17 GM PACKET PO SCH (12:23)
[2020-12-18] MEDS: SODIUM ZIRCONIUM CYCLOSILICATE (LOKELMA) 5 GM PACKET PO SCH (12:24)
[2020-12-18] MEDS: TORSEMIDE 20 MG TABLET (FP) PO SCH (12:25)
[2020-12-18] MEDS ORDERED: SODIUM CHLORIDE NASAL SPRAY 44 ML BOTTLE NS PRN (12:26)
[2020-12-18] MEDS: CITALOPRAM HYDROBROMIDE 20 MG TABLET PO SCH (12:28)
[2020-12-18] MEDS: ISOSORBIDE MONONITRATE 30 MG TAB.SR.24H (FP) PO SCH (12:28)
[2020-12-18] MEDS: PANTOPRAZOLE 40 MG TABLET PO SCH ×2 (12:29→22:37)
[2020-12-18] MEDS: ASPIRIN COATED 81 MG TABLET.EC PO SCH ×2 (12:29→22:36)
[2020-12-18] MEDS: MONTELUKAST NA 10 MG TABLET PO SCH (12:29)
[2020-12-18] MEDS: CARVEDILOL 25 MG TABLET (FP) PO SCH ×2 (12:29→22:35)
[2020-12-18] MEDS ORDERED: PT OWN MED DRAWER 7, Y5N ONE ×2 (12:32→22:20)
[2020-12-18] MEDS: hydrALAZINE HCL 10 MG TABLET PO SCH ×2 (12:34→22:35)
[2020-12-18] MEDS: BUDESONIDE/FORMETEROL FUMARATE 80/4.5 mcg INHALER IH SCH ×2 (12:35→23:32)
[2020-12-18 14:11] LABS: CHLORIDE 98 mmol/L (98-107); SODIUM 133 mmol/L (136-145)
[2020-12-18 14:15] LABS: ALBUMIN 2.5 g/dl (3.4-5.0); ANION GAP 13 MMOL/L (8-16); CALCIUM 8.6 mg/dL (8.5-10.1); CO2 21 mmol/L (21-32)
[2020-12-18 14:16] LABS: GLUCOSE,RANDOM 248 mg/dL (74-106)
[2020-12-18 14:18] LABS: CREATININE 3.8 mg/dL (0.55-1.3); SGOT/AST 16 U/L (15-37); SGPT/ALT 9 U/L (13-61)
[2020-12-18 14:20] LABS: BILIRUBIN,TOTAL 0.4 mg/dL (0.2-1); TOT PROT 7.3 g/dl (6.4-8.2)
[2020-12-18 14:21] LABS: ALK PHOS 118 U/L (45-117)
[2020-12-18 15:52] LABS: BASO % 0.2 % (0-2.0); EOS % 1.7 % (0-4.5); HEMATOCRIT 26.4 % (32.4-45.2); HEMOGLOBIN 8.8 GM/dL (10.7-15.3); LYMPH % 3.7 % (8-40); MCH 32.4 pg (25.7-33.7); MCHC 33.5 g/dl (32.0-36.0); MEAN CELL VOLUME 96.7 fl (80-96); MEAN PLT VOLUME 7.7 fl (7.5-11.1); MONO % 9.1 % (3.8-10.2); NEUT % 85.3 % (42.8-82.8); PLATELET COUNT 299 10^3/uL (134-434); RBC 2.73 M/mm3 (3.60-5.2); WHITE BLOOD COUNT 10.5 K/mm3 (4.0-10.0)
[2020-12-18] MEDS: SENNOSIDES 8.6MG TABLET (FP) PO SCH (22:36)
[2020-12-18] MEDS: ATORVASTATIN CA 10 MG TABLET (FP) PO SCH (22:41)
[2020-12-18] MEDS: oxyCODONE HCL 5 MG TABLET PO PRN (22:47)
[2020-12-19] MEDS: DOCUSATE SODIUM 100 MG CAPSULE (FP) PO SCH (05:38)
[2020-12-19] MEDS: LEVOTHYROXINE NA 88 MCG TABLET (FP) PO SCH (06:30)
[2020-12-19] MEDS: INSULIN SLIDING SCALE (NOVOLOG) 1 VIAL SQ SCH ×2 (06:31→12:05)
[2020-12-19] MEDS: INSULIN (LEVEMIR) 100 UNITS/ML UNITS SQ SCH (06:43)
[2020-12-19 09:23] VITALS: BP 136/69; PULSE 70; TEMP 97.7
[2020-12-19] MEDS: ASPIRIN COATED 81 MG TABLET.EC PO SCH (09:25)
[2020-12-19] MEDS: CITALOPRAM HYDROBROMIDE 20 MG TABLET PO SCH (09:25)
[2020-12-19] MEDS: POLYETHYLENE GLYCOL (HEALTHYLAX) 3350 17 GM PACKET PO SCH (09:25)
[2020-12-19] MEDS: SODIUM ZIRCONIUM CYCLOSILICATE (LOKELMA) 5 GM PACKET PO SCH (09:25)
[2020-12-19] MEDS: CARVEDILOL 25 MG TABLET (FP) PO SCH (09:25)
[2020-12-19] MEDS: PANTOPRAZOLE 40 MG TABLET PO SCH (09:25)
[2020-12-19] MEDS: ISOSORBIDE MONONITRATE 30 MG TAB.SR.24H (FP) PO SCH (09:26)
[2020-12-19] MEDS: TORSEMIDE 20 MG TABLET (FP) PO SCH (09:26)
[2020-12-19] MEDS: hydrALAZINE HCL 10 MG TABLET PO SCH (09:27)
[2020-12-19] MEDS: MONTELUKAST NA 10 MG TABLET PO SCH (09:27)
[2020-12-19] MEDS: BUDESONIDE/FORMETEROL FUMARATE 80/4.5 mcg INHALER IH SCH (09:28)
[2020-12-19] MEDS: oxyCODONE HCL 5 MG TABLET PO PRN (09:30)
[2020-12-19 12:07] LABS: HEMOGLOBIN 7.9 GM/dL (10.7-15.3); MCH 31.8 pg (25.7-33.7); MEAN CELL VOLUME 96.3 fl (80-96); PLATELET COUNT 318 10^3/uL (134-434); RBC 2.49 M/mm3 (3.60-5.2); RDW 17.2 % (11.6-15.6); WHITE BLOOD COUNT 7.7 K/mm3 (4.0-10.0)
[2020-12-19 12:31] LABS: CALCIUM 8.3 mg/dL (8.5-10.1)
[2020-12-19 12:32] LABS: ALBUMIN 2.2 g/dl (3.4-5.0)
[2020-12-19 12:37] LABS: BILIRUBIN,TOTAL 0.3 mg/dL (0.2-1); TOT PROT 6.4 g/dl (6.4-8.2)
[2020-12-19 12:55] LABS: MAGNESIUM 2.6 mg/dL (1.8-2.4)
[2020-12-19 13:18] LABS: ANISOCYTOSIS 0; MACROCYTOSIS 0; PLATELET ESTIMATE NORMAL
[2020-12-19] MEDS ORDERED: INSULIN (LEVEMIR) 100 UNITS/ML UNITS SQ SCH (22:00)
== END 2020-12-19 14:32 | DRG 320 ==
LOC: JER 23:15 → JERBED 12-12 02:01 → J7W 12-12 17:20
PROVIDERS: ADMIT Internal Medicine; ATTEND Nurse Practitioner Family
PROC: 0JCN0ZZ Extirpation of Matter from Right Lower Leg Subcutaneous Tissue and Fascia, Open Approach (ICD-10-PCS; 2020-12-13)
PROC: 0QSD04Z Reposition Right Patella with Internal Fixation Device, Open Approach (ICD-10-PCS; principal; 2020-12-13 15:30)
DX: S82.001A Unspecified fracture of right patella, initial encounter for closed fracture (principal); I42.0 Dilated cardiomyopathy; I25.10 Atherosclerotic heart disease of native coronary artery without angina pectoris; N18.9 Chronic kidney disease, unspecified; E11.22 Type 2 diabetes mellitus with diabetic chronic kidney disease; Z95.810 Presence of automatic (implantable) cardiac defibrillator; Z79.4 Long term (current) use of insulin; G20 Parkinson's disease; S70.11XA Contusion of right thigh, initial encounter; I50.32 Chronic diastolic (congestive) heart failure; E03.9 Hypothyroidism, unspecified; I13.2 Hypertensive heart and chronic kidney disease with heart failure and with stage 5 chronic kidney disease, or end stage renal disease; N18.5 Chronic kidney disease, stage 5; N39.0 Urinary tract infection, site not specified; E87.5 Hyperkalemia; N17.9 Acute kidney failure, unspecified; E87.1 Hypo-osmolality and hyponatremia; E66.9 Obesity, unspecified; D63.1 Anemia in chronic kidney disease; Z68.34 Body mass index [BMI] 34.0-34.9, adult; J44.9 Chronic obstructive pulmonary disease, unspecified; W18.30XA Fall on same level, unspecified, initial encounter; Y93.89 Activity, other specified; Y92.000 Kitchen of unspecified non-institutional (private) residence as the place of occurrence of the external cause; Y99.8 Other external cause status
CPT/HCPCS: 36415; 70450-TC; 71045-TC-FY; 73700-TC-RT; 80048; 80053; 80061; 81003; 82962; 83036; 83735; 84100; 84443; 84484; 85025; 85610; 85730; 86850; 86900; 86901; 87040; 87077; 87086; 93005; 93010; 93880-TC; 94010; 94760; 97116-GP; 97162-GP; 99285-25; C9803; J0131; U0003; U0005

== ENCOUNTER 2023-07-27 19:12 | Emergency (ER) | payer OTHER ==
[2023-07-27] MEDS ORDERED: DEXTROSE 50%-WATER 25 GM/50 ML DISP.SYRIN ONE ×2 (19:18→19:38)
[2023-07-27] MEDS ORDERED: GLUCAGON 1 MG KIT ONE (19:39)
[2023-07-27] MEDS: DEXTROSE 50%-WATER - 25 GM/50 ML VIAL IVPUSH ONE ×3 (19:42→20:05)
[2023-07-27 20:01] VITALS: RESP 18; BMI 41.1
[2023-07-27] MEDS: GLUCAGON 1 MG KIT IM ONE (20:05)
[2023-07-27 20:26] LABS: BASO % 0.6 % (0-2.0); HEMATOCRIT 32.2 % (32.4-45.2); HEMOGLOBIN 10.8 GM/dL (10.7-15.3); LYMPH % 10.1 % (8-40); MCH 30.4 pg (25.7-33.7); MCHC 33.4 g/dl (32.0-36.0); MEAN PLT VOLUME 7.9 fl (7.5-11.1); MONO % 7.4 % (3.8-10.2); NEUT % 73.9 % (42.8-82.8); PLATELET COUNT 324 10^3/uL (134-434); RBC 3.54 M/mm3 (3.60-5.2); RDW 16.6 % (11.6-15.6); WHITE BLOOD COUNT 7.7 K/mm3 (4.0-10.0)
[2023-07-27 20:28] LABS: VENOUS BASE EXCESS -4.1 mmol/L (-2-2); VENOUS PCO2 51.8 mmHg (38-52); VENOUS PH 7.266 (7.310-7.410)
[2023-07-27 20:31] LABS: INR 0.94 (0.83-1.09); PROTHROMBIN TIME (PATIENT) 10.8 SEC (9.7-13.0)
[2023-07-27 20:34] LABS: ACTIVATED PTT 28.4 SECONDS (25.2-36.5)
[2023-07-27 20:44] LABS: POTASSIUM 4.7 mmol/L (3.5-5.1)
[2023-07-27 20:46] LABS: CALCIUM 9.3 mg/dL (8.5-10.1)
[2023-07-27 20:47] LABS: ALBUMIN 3.5 g/dl (3.4-5.0); BLOOD UREA NITROGEN 60.3 mg/dL (7-18)
[2023-07-27 20:50] LABS: URINE APPEARANCE CLEAR; URINE BILIRUBIN NEGATIVE (NEGATIVE); URINE COLOR YELLOW; URINE GLUCOSE (UA) 3+ (NEGATIVE); URINE KETONE NEGATIVE (NEGATIVE); URINE LEUK ESTERASE NEGATIVE (NEGATIVE); URINE NITRITE NEGATIVE (NEGATIVE); URINE PROTEIN 2+ (NEGATIVE); URINE UROBILINOGEN 0.2 mg/dL (0.2-1.0)
[2023-07-27 20:51] LABS: BILIRUBIN,TOTAL 0.3 mg/dL (0.2-1); EPI CELLS 5.1 /uL (0-25.1); HYALINE CASTS 0.29 /uL (0-3.1); TOT PROT 7.8 g/dl (6.4-8.2); URINE BACTERIA 0.9 /uL (0-1359); URINE RBC 32.8 /uL (0-23.9); URINE WBC 11.9 /uL (0-25.8)
[2023-07-27 22:02] LABS: URINE BARBITURATES NEGATIVE (NEGATIVE)
[2023-07-27 22:03] LABS: COCAINE, UR NEGATIVE (NEGATIVE); METHADONE, UR NEGATIVE (NEGATIVE); OPIATES, URI NEGATIVE (NEGATIVE); PHENCYCLIDINE,URINE NEGATIVE (NEGATIVE); URINE BENZODIAZEPINES NEGATIVE (NEGATIVE)
[2023-07-27 22:08] LABS: URINE AMPHETAMINES NEGATIVE (NEGATIVE)
[2023-07-27] MEDS: SODIUM CHLORIDE 3% 500 ML/500 ML INFUS.BAG IV ONE (22:54)
[2023-07-27 22:57] VITALS: BP 150/79
[2023-07-27 23:30] VITALS: PULSE 89; TEMP 97.5
== END 2023-07-27 23:50 | disposition short-term general hospital (02) ==
LOC: JER 19:12
PROC: 3E0337Z Introduction of Electrolytic and Water Balance Substance into Peripheral Vein, Percutaneous Approach (ICD-10-PCS; principal; 2023-07-27)
PROC: 3E0337Z Introduction of Electrolytic and Water Balance Substance into Peripheral Vein, Percutaneous Approach (ICD-10-PCS; 2023-07-27)
PROC: 3E0337Z Introduction of Electrolytic and Water Balance Substance into Peripheral Vein, Percutaneous Approach (ICD-10-PCS; 2023-07-27)
PROC: 3E0337Z Introduction of Electrolytic and Water Balance Substance into Peripheral Vein, Percutaneous Approach (ICD-10-PCS; 2023-07-27)
PROC: 3E0337Z Introduction of Electrolytic and Water Balance Substance into Peripheral Vein, Percutaneous Approach (ICD-10-PCS; 2023-07-27)
PROC: 3E0337Z Introduction of Electrolytic and Water Balance Substance into Peripheral Vein, Percutaneous Approach (ICD-10-PCS; 2023-07-27)
PROC: 3E0337Z Introduction of Electrolytic and Water Balance Substance into Peripheral Vein, Percutaneous Approach (ICD-10-PCS; 2023-07-27)
PROC: 3E0337Z Introduction of Electrolytic and Water Balance Substance into Peripheral Vein, Percutaneous Approach (ICD-10-PCS; 2023-07-27)
PROC: 3E023GC Introduction of Other Therapeutic Substance into Muscle, Percutaneous Approach (ICD-10-PCS; 2023-07-27)
DX: I62.00 Nontraumatic subdural hemorrhage, unspecified (principal); E11.649 Type 2 diabetes mellitus with hypoglycemia without coma; N17.9 Acute kidney failure, unspecified; R55 Syncope and collapse; Z20.822 Contact with and (suspected) exposure to COVID-19
CPT/HCPCS: 0241U-QW; 36415; 70450-TC; 71045-TC-FY; 71250-TC; 72125-TC; 74150-TC; 80053; 80307; 81003; 82010; 82140; 82550; 82553; 82803; 82962; 83605; 84439; 84443; 84484; 85025; 85610; 85730; 87040; 87086; 96361; 96372; 96374; 96376; 99285-25

== ENCOUNTER 2023-10-01 11:33 | Observation (INO) | payer OTHER ==
[2023-10-01] MEDS ORDERED: ASPIRIN 81 MG CHEWABLE TABLETS ONE (13:01)
[2023-10-01] MEDS: ASPIRIN 81 MG CHEWABLE TABLETS PO ONE (13:09)
[2023-10-01] MEDS ORDERED: ALBUTEROL SO4 2.5/IPRATROPIUM 0.5 INH SOL 3 ML VIAL.NEB. NEB ONE (13:16)
[2023-10-01] MEDS ORDERED: methylPREDNISolone NA SUCC 125 MG/2 ML VIAL ONE (13:16)
[2023-10-01] MEDS: methylPREDNISolone NA SUCC 125 MG/2 ML VIAL IVPB ONE (13:23)
[2023-10-01] MEDS: ALBUTEROL SO4 2.5/IPRATROPIUM 0.5 INH SOL 3 ML VIAL.NEB. NEB SCH (13:23)
[2023-10-01 13:31] LABS: BASO % 0.6 % (0-2.0); EOS % 13.1 % (0-4.5); HEMOGLOBIN 9.3 GM/dL (10.7-15.3); LYMPH % 4.9 % (8-40); MCH 30.1 pg (25.7-33.7); MCHC 32.1 g/dl (32.0-36.0); MEAN CELL VOLUME 93.9 fl (80-96); MEAN PLT VOLUME 7.1 fl (7.5-11.1); MONO % 7.5 % (3.8-10.2); NEUT % 73.9 % (42.8-82.8); PLATELET COUNT 299 10^3/uL (134-434); RBC 3.08 M/mm3 (3.60-5.2); WHITE BLOOD COUNT 9.1 K/mm3 (4.0-10.0)
[2023-10-01 13:35] LABS: INR 0.97 (0.83-1.09); PROTHROMBIN TIME (PATIENT) 11.2 SEC (9.7-13.0)
[2023-10-01 13:39] LABS: ACTIVATED PTT 30.5 SECONDS (25.2-36.5)
[2023-10-01 13:54] LABS: POTASSIUM 4.8 mmol/L (3.5-5.1)
[2023-10-01 13:58] LABS: BLOOD UREA NITROGEN 35.9 mg/dL (7-18); CALCIUM 8.9 mg/dL (8.5-10.1)
[2023-10-01 14:00] LABS: ALBUMIN 3.2 g/dl (3.4-5.0)
[2023-10-01 14:01] LABS: CREATININE 2.8 mg/dL (0.55-1.3)
[2023-10-01 14:03] LABS: BILIRUBIN,TOTAL 0.5 mg/dL (0.2-1); TOT PROT 7.6 g/dl (6.4-8.2)
[2023-10-01 14:48] LABS: HIV INTERPRETATION NEGATIVE (NEGATIVE)
[2023-10-01] MEDS ORDERED: FUROSEMIDE 40 MG/4 ML INJECTABLE VIAL ONE (15:43)
[2023-10-01] MEDS: FUROSEMIDE 40 MG/4 ML INJECTABLE VIAL IVPUSH ONE (15:50)
[2023-10-01] MEDS ORDERED: PATIENT'S OWN MEDICATION (NON-FORMULARY) (Insulin Aspart [Novolog Flexpen] 100 UNIT/ML Ins SCH (16:00)
[2023-10-01] MEDS: FUROSEMIDE 40 MG/4 ML INJECTABLE VIAL IVPUSH SCH (16:00)
[2023-10-01] MEDS: SIMETHICONE 80 MG TAB.CHEW (FP) PO SCH (18:27)
[2023-10-01] MEDS: INSULIN ASPART SLIDING SCALE (NOVOLOG) 1 VIAL SQ SCH (18:27)
[2023-10-01] MEDS ORDERED: SIMETHICONE 80 MG TAB.CHEW (FP) PO PRN (19:39)
[2023-10-01] MEDS: CARVEDILOL 25 MG TABLET (FP) PO SCH (22:13)
[2023-10-01] MEDS: ATORVASTATIN CA 10 MG TABLET (FP) PO SCH (22:14)
[2023-10-01] MEDS ORDERED: INSULIN ASPART SLIDING SCALE (NOVOLOG) 1 VIAL SQ ONE (22:19)
[2023-10-01] MEDS: INSULIN (LEVEMIR) 100 UNITS/ML UNITS SQ SCH (22:26)
[2023-10-02 00:36] LABS: GLUCOSE,RANDOM 456 mg/dL (74-106)
[2023-10-02] MEDS: LATANOPROST 0.005% OPHTH SOLN 2.5ML BOTTLE OU SCH (01:54)
[2023-10-02] MEDS: BUDESONIDE/FORMETEROL FUMARATE 160/4.5 mcg INHALER IH SCH (01:54)
[2023-10-02] MEDS ORDERED: INSULIN ASPART SLIDING SCALE (NOVOLOG) 1 VIAL SQ ONE ×3 (06:20→14:04)
[2023-10-02] MEDS: LEVOTHYROXINE NA 100 MCG TABLET (FP) PO SCH (06:57)
[2023-10-02 09:11] VITALS: BMI 34.2
[2023-10-02] MEDS: PANTOPRAZOLE 40 MG TABLET PO SCH (09:47)
[2023-10-02] MEDS: NORTRIPTYLINE HCL 25 MG CAPSULE PO SCH (09:47)
[2023-10-02] MEDS: ASPIRIN 81 MG CHEWABLE TABLETS PO SCH (09:47)
[2023-10-02] MEDS: amLODIPine BESYLATE 10 MG TABLET (FP) PO SCH (09:47)
[2023-10-02] MEDS: MULTIVITAMINS (DAILY MVI) TABLET (FP) PO SCH (09:48)
[2023-10-02] MEDS: INSULIN (NOVOLOG) ASPART 100 UNITS/ML 10ML VIAL SQ SCH ×2 (09:48→14:23)
[2023-10-02] MEDS: POLYETHYLENE GLYCOL (HEALTHYLAX) 3350 17 GM PACKET PO SCH (09:48)
[2023-10-02] MEDS ORDERED: PATIENT'S OWN MEDICATION (NON-FORMULARY) (Icosapent Ethyl [Vascepa] 1 GM Capsule) PO SCH (10:00)
[2023-10-02] MEDS ORDERED: COLLAGENASE CLOSTRIDIUM HIST. 30 GRAMS TUBE TP SCH (10:00)
[2023-10-02 10:54] LABS: HEMATOCRIT 29.5 % (32.4-45.2); HEMOGLOBIN 9.3 GM/dL (10.7-15.3); MCH 29.7 pg (25.7-33.7); MCHC 31.5 g/dl (32.0-36.0); MEAN CELL VOLUME 94.2 fl (80-96); MEAN PLT VOLUME 7.1 fl (7.5-11.1); PLATELET COUNT 193 10^3/uL (134-434); RBC 3.13 M/mm3 (3.60-5.2); RDW 20.1 % (11.6-15.6); WHITE BLOOD COUNT 6.7 K/mm3 (4.0-10.0)
[2023-10-02] MEDS: INSULIN ASPART SLIDING SCALE (NOVOLOG) 1 VIAL SQ SCH (18:05)
[2023-10-02] MEDS: CEFTRIAXONE 1 GM in DEXTROSE 5%-WATER - 50 ML IVPB SCH (18:20)
[2023-10-02] MEDS: HEPARIN NA (PORCINE) 5,000 UNITS/ML 1ML VIAL SQ SCH (21:47)
[2023-10-02] MEDS: INSULIN (LEVEMIR) 100 UNITS/ML UNITS SQ SCH (21:59)
[2023-10-03] MEDS: INSULIN (NOVOLOG) ASPART 100 UNITS/ML 10ML VIAL SQ SCH (06:32)
[2023-10-03 08:01] LABS: HEMATOCRIT 26.2 % (32.4-45.2); HEMOGLOBIN 8.5 GM/dL (10.7-15.3); MCH 30.7 pg (25.7-33.7); MCHC 32.4 g/dl (32.0-36.0); MEAN CELL VOLUME 94.6 fl (80-96); MEAN PLT VOLUME 7.2 fl (7.5-11.1); PLATELET COUNT 262 10^3/uL (134-434); RBC 2.77 M/mm3 (3.60-5.2); WHITE BLOOD COUNT 5.3 K/mm3 (4.0-10.0)
[2023-10-03 08:13] LABS: POTASSIUM 4.7 mmol/L (3.5-5.1)
[2023-10-03 08:16] LABS: CALCIUM 8.3 mg/dL (8.5-10.1)
[2023-10-03 08:17] LABS: BLOOD UREA NITROGEN 55.4 mg/dL (7-18)
[2023-10-03 08:20] LABS: CREATININE 3.1 mg/dL (0.55-1.3)
[2023-10-04 07:45] LABS: HEMATOCRIT 27.6 % (32.4-45.2); HEMOGLOBIN 8.9 GM/dL (10.7-15.3); MCH 30.9 pg (25.7-33.7); MCHC 32.4 g/dl (32.0-36.0); MEAN CELL VOLUME 95.1 fl (80-96); MEAN PLT VOLUME 7.5 fl (7.5-11.1); PLATELET COUNT 263 10^3/uL (134-434); RDW 20.4 % (11.6-15.6); WHITE BLOOD COUNT 6.7 K/mm3 (4.0-10.0)
[2023-10-04 07:56] LABS: POTASSIUM 4.9 mmol/L (3.5-5.1)
[2023-10-04 08:02] LABS: CALCIUM 7.8 mg/dL (8.5-10.1)
[2023-10-04 08:06] LABS: CREATININE 3.4 mg/dL (0.55-1.3)
[2023-10-04] MEDS: TORSEMIDE 20 MG TABLET (FP) PO SCH (11:01)
[2023-10-04] MEDS: ISOSORBIDE MONONITRATE 30 MG TAB.SR.24H (FP) PO SCH (11:03)
[2023-10-04] MEDS: CYCLOBENZAPRINE HCL 10 MG TABLET (FP) PO PRN (21:37)
[2023-10-05 07:41] LABS: HEMATOCRIT 30.1 % (32.4-45.2); HEMOGLOBIN 9.7 GM/dL (10.7-15.3); MCH 30.5 pg (25.7-33.7); MCHC 32.4 g/dl (32.0-36.0); MEAN CELL VOLUME 94.3 fl (80-96); MEAN PLT VOLUME 7.7 fl (7.5-11.1); PLATELET COUNT 235 10^3/uL (134-434); RBC 3.19 M/mm3 (3.60-5.2); RDW 20.3 % (11.6-15.6)
[2023-10-05 07:54] LABS: POTASSIUM 4.6 mmol/L (3.5-5.1)
[2023-10-05 08:00] LABS: BLOOD UREA NITROGEN 66.7 mg/dL (7-18); CALCIUM 8.4 mg/dL (8.5-10.1)
[2023-10-05 08:04] LABS: CREATININE 3.2 mg/dL (0.55-1.3)
[2023-10-05 09:41] VITALS: BP 121/59; RESP 16; TEMP 98.1
[2023-10-05 10:10] VITALS: PULSE 98
== END 2023-10-05 15:05 | disposition home health service (06) ==
LOC: JER 11:33 → JERBED 14:57 → J4W 20:51
PROVIDERS: ADMIT Internal Medicine; ATTEND Internal Medicine
PROC: 3E0F7GC Introduction of Other Therapeutic Substance into Respiratory Tract, Via Natural or Artificial Opening (ICD-10-PCS; principal; 2023-10-01)
PROC: 3E03329 Introduction of Other Anti-infective into Peripheral Vein, Percutaneous Approach (ICD-10-PCS; 2023-10-01)
PROC: 3E033GC Introduction of Other Therapeutic Substance into Peripheral Vein, Percutaneous Approach (ICD-10-PCS; 2023-10-01)
PROC: 3E023GC Introduction of Other Therapeutic Substance into Muscle, Percutaneous Approach (ICD-10-PCS; 2023-10-01)
PROC: 3E013VG Introduction of Insulin into Subcutaneous Tissue, Percutaneous Approach (ICD-10-PCS; 2023-10-01)
DX: I50.23 Acute on chronic systolic (congestive) heart failure (principal); I13.0 Hypertensive heart and chronic kidney disease with heart failure and stage 1 through stage 4 chronic kidney disease, or unspecified chronic kidney disease; E11.22 Type 2 diabetes mellitus with diabetic chronic kidney disease; N18.9 Chronic kidney disease, unspecified; L03.116 Cellulitis of left lower limb; E78.5 Hyperlipidemia, unspecified; Z95.810 Presence of automatic (implantable) cardiac defibrillator; E03.9 Hypothyroidism, unspecified; E11.9 Type 2 diabetes mellitus without complications; Z79.4 Long term (current) use of insulin; L53.8 Other specified erythematous conditions; I25.10 Atherosclerotic heart disease of native coronary artery without angina pectoris; D64.9 Anemia, unspecified
CPT/HCPCS: 36415; 71046-TC-FY; 80048; 80053; 82550; 82947; 82962; 83880; 84484; 85025; 85027; 85610; 85730; 86803; 87389; 93005; 93010; 93306-TC; 93990-TC; 94640; 94761; 96365; 96372; 96375; 96376; 99285-25; G0378; J1644